=== PATIENT | female | born 1945 | race Caucasian/White ===

== ENCOUNTER → 2016-07-27 | Outpatient (CLI) | payer OTHER ==
[~2016-07-27] VITALS: Ht 170.2 cm; Wt 88.5 kg
[~2016-07-27] MED LIST: ACTOS 30 MG TAB30 M1; ACYCLOVIR 800800 MG PO; AMLODIPINE BESY10 MG PO; ASPIRIN EC81 M1 OR; ATORVASTATIN CA40 MG; BENZONATATE200 MG PO; BROMDAY1.7 ML OP; COLACE100 MG; COZAAR 50 MG TA50 M1; DUREZOL5 ML OP; FLEXERIL PO; FLONASE 0.05%50 MCG NASAL; GLUCOPHAGE500 MG PO; GRALISE300 MG PO; GRALISE600 MG PO; HYDROCHLOROTH12.5 M1; HYDROCODON-ACE1 EACH PO; HYDROCODONE PO; HYDROCODONE-AP1 EAC6 PO; KEFLEX500 MG PO; LANTUS SQ; LEVOTHYROXINE0.05 MG; LIDODERM 5%1 PATC1 TRANSDERM; LIPITOR80 MG OR; LOSARTAN-HCTZ1 EACH OR; LYRICA 50 MG50 MG; MAG-OX 400 TAB400 M1 OR; MEDROLDOSEPACK PO; MOBIC15 MG PO; NAPROSYN500 MG PO; NESINA25 MG; NEURONTIN 300300 M1 PO; NORCO 5-325 TA1 EACH PO; NORTRIPTYLINE H25 M3 PO; ONE-A-DAY WOMENS OR; OSENI 25-15 MG1 EACH PO; OXYCODON-ACETA1 EAC1 PO; PERCOCET 10-321 EAC1 PO; PERCOCET 10-321 EACH PO; PERCOCET 5-3251 EACH OR; PERCOCET 5-3251 EACH PO; PERCOCET 7.5-31 EACH PO; RESTORIL30 MG PO; SERTRALINE HCL100 MG OR; TIROSINT75 MCG OR; VALIUM5 MG PO; VESICARE 5 MG TA5 M1 PO; VIBRAMYCIN 100100 MG PO; VICTOZA0.6 MG/0.1 IJ; VICTOZA0.6 MG/0.1 SQ; VITAMIN D35000 UNI1 PO
--- NOTE | ~2016-07-27 | HPC ---
[facility] [address] [place] [address] PAIN MANAGEMENT CONSULTATION Name: KIM JIMENEZ Room #: REG JAYLIN Amos.#: [id number] Admission: 07/27/16 Attend Phys: Hawk Otoole DO Discharge: Date of : 47 Report #: [id number] THIS REPORT FOR: //name// CC: Hawk Hyde DATE OF SERVICE: 07/27/2016 DATE OF SERVICE: 07/27/2016 CHIEF COMPLAINT: Low back pain, left lower extremity pain and paresthesias. HISTORY OF PRESENT ILLNESS: As you know, patient is a very pleasant 70-year-old female, who returns today in followup visit with pain levels of 2/10. States her pain is chronic, aching, burning, numbness and tingling in sensation, exacerbated with standing and lifting, improves with medications, TENS unit, sitting and lying down. She returns today in followup visit for medication management as well as to undergo next in the series of epidural injections. She reported about a 50% improvement in overall pain with the epidural injection provided at last visit. She returns today for the next in the series and received refills of medications. She is considering surgical options, but is hoping to delay that necessity. ALLERGIES: LISINOPRIL, HYDROCODONE, ACETAMINOPHEN, ORPHENADRINE, IBUPROFEN, NAPROXEN. CURRENT MEDICATIONS: Oxycodone, gabapentin, fluticasone, meloxicam, losartan, levothyroxine, atorvastatin, VESIcare, insulin, temazepam, sertraline, metformin, amlodipine and aspirin. SOCIAL HISTORY: The patient denies tobacco, alcohol or illicit drug use. She is retired. She is unaccompanied today. PHYSICAL EXAMINATION: VITAL SIGNS: Blood pressure 139/72, pulse 88, respiratory rate 20, unlabored. The patient 95% on room air. Height 5 feet 7 inches tall, weight 195 pounds, BMI calculated 30.5. GENERAL: Well developed, well nourished, well hydrated 70-year-old female appearing stated age, placing pain score today 2/10. HEENT: Normocephalic, atraumatic. Pupils equal, round, reactive to light. EXTREMITIES: Show no clubbing, no cyanosis, no edema. MUSCULOSKELETAL: Seated straight leg raising positive on the left. Supine straight leg raising positive on the left. Cherise's test negative. Modified Gaenslen's positive for axial low back pain. Ankle clonus negative. Babinski is negative. Gait antalgic favoring [place] [address] PAIN MANAGEMENT CONSULTATION Name: KIM JIMENEZ Room #: REG [facility]#: [id number] Admission: 07/27/16 Attend Phys: Hawk Otoole DO Discharge: Date of : 47 Report #: [id number] ASSESSMENT: 1. Lumbar radiculopathy. 2. 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 3. Lumbosacral spondylosis with radiculopathy. 4. Degeneration of lumbar spine. 5. Chronic intractable pain. PLAN: 1. The patient returns today in followup visit requesting to undergo next in the series of epidural injections. The patient has been advised risks and benefits of the procedure, states she understood and wished to proceed. 2. The patient was provided a prescription of Percocet 10/325 one tab every 4-1/2 hours p.r.n. for pain. I have given the patient #150 releases of today, 4 weeks from today, 8 weeks from today, 3 months' worth of medication. 3. The patient was provided a refill prescription on gabapentin 300 mg dose 4 tabs p.o. t.i.d. #360 tablets with 2 refills, 3 months' worth of medication. We reviewed the fact that opiate medications are being used to provide analgesia adequate to support activities of daily living, not attempting to achieve a specific pain score on the 0-10 Visual Analog Scale. The current opiate medications are providing sufficient analgesia to allow the patient to participate in activities of daily living. The patient is not exhibiting any aberrant behavior suggestive of drug diversion. The patient is not having any adverse reactions to medications. The patient is not suffering from daytime somnolence or mental acuity changes. The patient is managing opiate-induced constipation with appropriate [id number]-cirrgdc agents and dietary considerations. The patient was counseled on concern for caution with operating a motor vehicle while using opiate medications. A physical exam was performed and the patient's functional status was evaluated. All patients with back pain were advised against the bed rest greater than 4 days and were advised to return to normal activities. Pain score assessment was noted and the treatment plan was reviewed with the patient. All current medications, both prescribed and OTC were reviewed and reconciled on the electronic medical record. Tobacco screening was accomplished and smoking cessation was advised when indicated. BMI was noted and diet/exercise modification was recommended for all patients following outside normal parameters. I reviewed with the patient today their responsibilities to safeguard prescription medications, reviewed their responsibility to utilize medications only as prescribed by the physician. They are to seek and receive pain medications only from 1 physician group ([facility]). They are to use 1 pharmacy and keep the clinic informed if they change pharmacies. Their responsibilities include making followup visits in a timely fashion and to avoid [address] [place] [address] PAIN MANAGEMENT CONSULTATION Name: KIM JIMENEZ Room #: REG [facility].#: [id number] Admission: 07/27/16 Attend Phys: Hawk Otoole DO Discharge: Date of : 47 Report #: [id number] abrupt discontinuation of medication usage. Their responsibilities further include bringing their medications (bottles from the pharmacy with residual pills) to the visit for possible confirmation of pill counts and the patient understands it is their responsibility to submit to random drug screens to ensure both that the medications prescribed are present, and that no other controlled substances are present. All prescriptions provided today were generated electronically. PROCEDURE NOTE DESCRIPTION OF PROCEDURE: Lumbar epidural steroid injection under fluoroscopic guidance. After obtaining written consent, the patient was taken back to fluoroscopy suite, placed in prone position with pillow under abdomen to decrease lumbar lordosis. Skin overlying the lumbosacral area was then prepped and draped in aseptic fashion. Lumbar intervertebral spaces were identified by AP fluoroscopy. Skin and subcutaneous tissue overlying the target site of injection was anesthetized with 3 mL of 1% lidocaine. A 20-gauge 3-1/2 inch Tuohy needle was advanced under fluoroscopic guidance towards the epidural space using a paramedian approach. Epidural space was identified using loss of resistance to air technique. After negative aspiration for heme or cerebrospinal fluid, 1 mL of Omnipaque was injected. Lumbar epidurogram was confirmed using both AP and lateral fluoroscopy. After negative aspiration for heme or cerebrospinal fluid, 5 mL of solution containing 2 mL 40 mg per mL, 80 mg total triamcinolone and 3 mL lidocaine 1% was injected slowly. Needle retracted approximately long-term, needle tract flushed 3 mL 1% lidocaine. Needle then removed. Sterile bandage placed over injection site. No new motor deficits present in lower extremity following procedure. The patient tolerated procedure well, carefully escorted to the recovery in stable condition. No apparent complications. After meeting discharge criteria, the patient discharged home. <ELECTRONICALLY SIGNED> By: Hawk Otoole DO 08/08/16 0805 [id number] 10 Hawk Otoole DO /nt
[2016-07-27 08:55] VITALS: BP 139/72
== END | disposition home or self-care (01) ==
LOC: PAIN 07:05
DX: M51.16 Intervertebral disc disorders with radiculopathy, lumbar region (principal); M47.27 Other spondylosis with radiculopathy, lumbosacral region; G89.29 Other chronic pain; F17.210 Nicotine dependence, cigarettes, uncomplicated

== ENCOUNTER → 2016-10-04 | Outpatient (CLI) | payer OTHER ==
[~2016-10-04] VITALS: Ht 170.2 cm; Wt 86.6 kg
[2016-10-04 10:11] VITALS: BP 154/79
== END ==
LOC: MRI 06:56 → PAIN 06:56
DX: M48.56XA Collapsed vertebra, not elsewhere classified, lumbar region, initial encounter for fracture (principal); M54.16 Radiculopathy, lumbar region; M54.5 Low back pain

== ENCOUNTER → 2016-10-13 | Outpatient (CLI) | payer OTHER ==
[~2016-10-13] VITALS: Ht 170.2 cm; Wt 88.5 kg
[2016-10-13 13:13] VITALS: BP 161/81
[2016-10-13 13:31] LABS: HEMATOCRIT 44.6 % (37.0-47.0); HEMOGLOBIN 14.7 gm/dL (12.0-15.0); MCH 31.6 pg (26.0-34.0); MCV 95.9 fL (80.0-100.0); RBC 4.65 mil/uL (4.20-5.00); RDW 13.5 % (10.5-14.5); WBC 8.6 thou/uL (4.0-11.0)
[2016-10-13 13:44] LABS: PROTIME 9.9 Seconds (9.3-11.4)
[2016-10-13 13:45] LABS: CALCIUM 8.7 mg/dL (8.5-10.1); CREATININE 0.6 mg/dL (0.6-1.0); POTASSIUM 4.2 mmol/L (3.5-5.1)
[2016-10-13 15:57] VITALS: BP 125/65
== END | disposition home or self-care (01) ==
LOC: SPEC
PROVIDERS: Radiology Vascular & Interventional Radiology
DX: M48.56XA Collapsed vertebra, not elsewhere classified, lumbar region, initial encounter for fracture (principal); E11.9 Type 2 diabetes mellitus without complications; I10 Essential (primary) hypertension; E78.5 Hyperlipidemia, unspecified; Z90.710 Acquired absence of both cervix and uterus

== ENCOUNTER → 2016-10-19 | Outpatient (CLI) | payer OTHER ==
[~2016-10-19] VITALS: Ht 170.2 cm; Wt 86.8 kg
--- NOTE | ~2016-10-19 | HPC ---
[facility] [place] [address] PAIN MANAGEMENT CONSULTATION Name: KIM JIMENEZ Room #: REG JAYLIN Isabel#: [id number] Admission: 10/19/16 Attend Phys: Hawk Otoole DO Discharge: Date of : 47 Report #: [id number] THIS REPORT FOR: //name// CC: Hawk Hyde DATE OF SERVICE: 10/19/2016 REFERRING PHYSICIAN: Aster Hyde M.D. CHIEF COMPLAINT: Low back pain, right lower extremity pain and paresthesias. HISTORY OF PRESENT ILLNESS: As you know, the patient is a 71-year-old female who returns today in followup visit having completed her kyphoplasty procedure. She was doing well from a kyphoplasty procedure standpoint and back pain had resolved. She was advised by the interventional radiologist that she had no limitation, she went out and begin golfing, not soon after the procedure was completed, she is now experiencing lumbar radicular symptoms, radiating down the right lower extremity. She denies injury or trauma during the golf, experience that may have led to symptoms. She is experiencing pain that begins in the axial back, radiates all the way down the leg to the foot. She returns today to discuss treatment options for "her new onset of right leg pain." ALLERGIES: LISINOPRIL, HYDROCODONE, ACETAMINOPHEN, IBUPROFEN, NAPROXEN. CURRENT MEDICATIONS: Gabapentin, Percocet, fluticasone, Mobic, Oseni, Cozaar, Synthroid, Lipitor, VESIcare, Lantus, Restoril, sertraline, Glucophage, amlodipine, aspirin. SOCIAL HISTORY: The patient denies tobacco, alcohol, IV or illicit drug use. She is unaccompanied today. She is retired. IMAGING: No new imaging available. PHYSICAL EXAMINATION: VITAL SIGNS: Blood pressure 153/77, pulse 84, respiratory rate 18, unlabored. The patient is 96% on room air. Height 5 feet 7 inches tall, weight 191 pounds, BMI calculated 29.9. GENERAL: Well-developed, well-nourished, well-hydrated 71-year-old female appearing stated age. Pain is rated again at 10/10. HEENT: Normocephalic, atraumatic. Pupils are equal, round and reactive to light. Extraocular muscles are intact. Sclerae are nonicteric, without injection. Speech is fluent. EXTREMITIES: Show no clubbing, no cyanosis, no edema. MUSCULOSKELETAL: The patient does have some palpatory tenderness over the paraspinal musculature of lower lumbar spine, no spinous process tenderness. [address] [address] PAIN MANAGEMENT CONSULTATION Name: KIM JIMENEZ Room #: REG JAYLIN Griffith.Mally.#: [id number] Admission: 10/19/16 Attend Phys: Hawk Otoole DO Discharge: Date of : 47 Report #: [id number] Seated straight leg raising negative. Supine straight leg raising positive, right. Fabere's test negative. Modified Gaenslen's is positive for axial low back pain. Ankle clonus is negative. Babinski is negative. ASSESSMENT: 1. Lumbar radiculopathy. 2. Displacement of a lumbar intervertebral disk with radicular symptoms. 3. Lumbosacral spondylosis with radiculopathy. 4. Lumbar degeneration. 5. Acute compression fracture, status post kyphoplasty. 6. Recurrent right lower extremity pain. 7. Chronic intractable pain. PLAN: 1. The patient returns today in followup visit indicating that she was pain free after undergoing the kyphoplasty procedure with radiology department here at [facility]. Unfortunately, the patient was advised that she had no restriction. She went out to begin golfing and exacerbated her symptoms. The likelihood is that she has irritated the area causing nerve root excitation and lumbar radicular symptoms radiating down the right leg. There is some concern that she may have a displaced fracture that was repaired with kyphoplasty or possibly led to a fracture above or below the original fracture site. I am unable to elicit any spinous process tenderness with examination today, though the new onset of right lower extremity radiculopathy is quite concerning. We will trial medication management initially for a week. If this does not improve, the patient will have to undergo x-ray imaging to confirm no displacement of the vertebral augmentation procedure and to determine if any new fractures may have occurred spontaneously. The patient is amenable to our direction of treatment and wishes to initiate medication therapy, look towards injection therapies if necessary later and further evaluation. 2. The patient will be started on Medrol Dosepak to begin the pack immediately. She will take the pack as directed. This should help decrease the acute inflammatory process. 3. The patient was provided refill prescription on Percocet 10/325 one tab p.o. q. 4 hours p.r.n. for pain. I have given the patient #150, releases of today, 4 weeks from today. This will be continued for baseline pain control. She does well with the medication, feel it is beneficial. 4. The patient was advised if she is not feeling better by next week, she is to contact the clinic. We will send her for x-ray imaging of the thoracolumbar area to further evaluate and have her return to discuss findings and more aggressive treatment options. By: [id number] Hawk Otoole DO /nt
[2016-10-19 08:53] VITALS: BP 153/77
== END | disposition home or self-care (01) ==
LOC: PAIN 06:45
DX: M51.16 Intervertebral disc disorders with radiculopathy, lumbar region (principal); M47.27 Other spondylosis with radiculopathy, lumbosacral region; M79.661 Pain in right lower leg; G89.29 Other chronic pain; F17.210 Nicotine dependence, cigarettes, uncomplicated; Z98.1 Arthrodesis status

== ENCOUNTER → 2016-12-06 | Outpatient (CLI) | payer OTHER ==
[~2016-12-06] VITALS: Ht 170.2 cm; Wt 86.1 kg
[~2016-12-06] MED LIST changes: +PAMELOR25 MG PO
--- NOTE | ~2016-12-06 | HPC ---
[facility] [address] [place] [address] PAIN MANAGEMENT CONSULTATION Name: KIM JIMENEZ Room #: REG [facility] M.R.#: [id number] Admission: 12/06/16 Attend Phys: Hawk Otoole DO Discharge: Date of : 47 Report #: [id number] THIS REPORT FOR: //name// CC: Hawk Hyde MD DATE OF SERVICE: 12/06/2016 DATE OF SERVICE: 12/06/2016 CHIEF COMPLAINT: Low back pain, right lower extremity pain and paresthesias. HISTORY OF PRESENT ILLNESS: As you know, the patient is a 71-year-old female, who continues to experience low back pain, right lower extremity pain, which appears to be radicular in origin. The patient states her pain has become so intense that she is now taking more doses of Percocet than prescribed. She indicates pain is aching, burning in sensation. She states she exacerbated her symptoms while scrubbing her deck yesterday. She places pain score today 9/10. She has been running low of her Percocet due to increased dosing. She returns today in followup visit to discuss this plus new MRI that was requested by Dr. Miguelito Mir, her orthopedic surgeon. ALLERGIES: LISINOPRIL, HYDROCODONE, ACETAMINOPHEN, IBUPROFEN, NAPROXEN. CURRENT MEDICATIONS: Gabapentin, Percocet, fluticasone, Mobic, Oseni, Cozaar, Synthroid, Lipitor, VESIcare, Lantus, Restoril, sertraline, Glucophage, amlodipine and aspirin. IMAGING: MRI of the lumbar spine obtained 12/01/2016, shows L3-L4 moderate disk loss, small diffuse posterior disk bulge lateral recess and foraminal mild stenosis. L5-S1, small diffuse posterior disk bulge identified larger as moderate sized broad based, left lateral recess stenosis. Right laminotomy change identified. Left foramen is moderately narrowed. L5-S1 mild degenerative changes, moderate right lateral recess stenosis. PHYSICAL EXAMINATION: VITAL SIGNS: Blood pressure 149/86, pulse 92, respiratory rate 20, unlabored. The patient is 95% on room air, height 5 feet 7 inches tall, weight 189.8 pounds, BMI calculated 29.7. GENERAL: Well developed, well nourished, well-hydrated 71-year-old female, appears stated age. She is in moderate distress secondary to pain, placing current pain score 9/10. HEENT: Normocephalic, atraumatic. Pupils equal, round, reactive to light. Extraocular muscles are intact. Sclerae nonicteric, without injection. EXTREMITIES: Show no clubbing, no cyanosis, no edema. [facility] [address] [place] [address] PAIN MANAGEMENT CONSULTATION Name: KIM JIMENEZ Room #: REG CL Nacho.#: [id number] Admission: 12/06/16 Attend Phys: Hawk Otoole DO Discharge: Date of : 47 Report #: [id number] MUSCULOSKELETAL: The patient does have some palpatory tenderness over the paraspinal musculature of lower lumbar spine, no spinous process tenderness. Seated straight leg raising negative. Supine straight leg raising positive on the right. Fabere's test negative. ASSESSMENT: 1. Symptomatic lumbar radiculopathy. 2. Displacement of lumbar intervertebral disk with radiculopathy. 3. Lumbosacral spondylosis with radiculopathy. 4. Lumbar degeneration. 5. Chronic intractable pain. PLAN: 1. The patient has returned today in followup visit with low back pain, right lower extremity pain that is radicular in origin. The patient has been evaluated by orthopedic surgery, who has indicated her symptoms are not hip or knee related on the right side. They believe also lumbar radicular symptoms. The patient and I had a very long discussion about lumbar radiculopathy and discussed the treatment options we have available, which include the following. 2. The patient and I discussed physical therapy, stretching exercises, core strengthening. We discussed medication management with adjustments in neuropathic pain medications. We discussed epidural injections under fluoroscopic guidance for which the patient has had, but did not note long-term efficacy. We also discussed spinal cord stimulator for which her third democrat payer restrictions did not allow her to undergo this procedure and surgical options. After reviewing risks and benefits of all proposed treatment options, the patient chose surgical evaluation. 3. The patient was sent to Neurosurgery for evaluation. The patient was advised to bring the information that she has recently had the new MRI requested by Dr. Mir. The EMGs and other findings were requested by Dr. Mir and any imaging studies that she has had done with us. All this information should be taking to her neurosurgery appointment. She will make her neurosurgery appointment as quickly as possible. Contact us to advise when to be watching for results. 4. We will increase the patient's oxycodone from 4 a day to 6 a day. This will be #180 tablets of Percocet 10/325. Advised to take the medication, no more than 6 times a day. We will not be able to sustain this level of oxycodone for a very long period of time. We are using this strictly for acute pain issues and we will gradually reduce back off this medication once available. We have provided the patient with oxycodone 10/325 mg #180 releases of today, 4 weeks from today, 8 weeks from today. This should be more than provide the patient with enough medication to be evaluated by neurosurgery and possibly undergo surgery. 5. The patient will start nortriptyline 25 mg dose 1 tab p.o. at bedtime for 5 nights and 2 tabs p.o. bedtime for 5 nights, then 3 tabs p.o. at bedtime, given the patient #90 tablets. Advised to titrate as directed, watch for side effects [address] [address] PAIN MANAGEMENT CONSULTATION Name: KIM JIMENEZ MING Room #: REG JAYLIN Hall#: [id number] Admission: 12/06/16 Attend Phys: Hawk Otoole DO Discharge: Date of : 47 Report #: [id number] such as somnolence, decrease in mental acuity, disorientation and confusion. If she notes any side effects, reduce the dose prior to side effects, contact our clinic. 6. The patient continued on gabapentin 1200 mg 3 times a day, given the patient #360 tablets, 2 refills, 3 months' worth of medication. 7. I will see the patient back in followup visit in 3 months for medication therapy or earlier if necessary to evaluate further. By: [id number] Hawk Otoole, DO /nt
[2016-12-06 09:02] VITALS: BP 149/86
== END ==
LOC: PAIN 06:32
DX: M54.5 Low back pain (principal); M79.661 Pain in right lower leg; M47.27 Other spondylosis with radiculopathy, lumbosacral region; M51.16 Intervertebral disc disorders with radiculopathy, lumbar region; G89.29 Other chronic pain; I10 Essential (primary) hypertension; F17.210 Nicotine dependence, cigarettes, uncomplicated; Z79.82 Long term (current) use of aspirin

== ENCOUNTER 2016-12-18 19:32 | Emergency (ER) | payer OTHER ==
[~2016-12-18] VITALS: Ht 170.2 cm; Wt 88.5 kg
[2016-12-21] MEDS ORDERED: PERCOCET 10-321 EACH PO (09:15)
[2016-12-21] MEDS ORDERED: NEURONTIN 300300 M1 PO (09:15)
== END 2016-12-18 21:39 | disposition home or self-care (01) ==
LOC: ER 19:32
DX: G89.29 Other chronic pain (principal); M54.5 Low back pain; F17.210 Nicotine dependence, cigarettes, uncomplicated; Z90.710 Acquired absence of both cervix and uterus; Z98.890 Other specified postprocedural states; Z90.89 Acquired absence of other organs; Z96.653 Presence of artificial knee joint, bilateral; Z88.8 Allergy status to other drugs, medicaments and biological substances

== ENCOUNTER → 2016-12-21 | Outpatient (CLI) | payer OTHER ==
[~2016-12-21] VITALS: Ht 175.3 cm; Wt 85.3 kg
[2016-12-21 08:51] VITALS: BP 131/80
== END | disposition home or self-care (01) ==
LOC: PAIN 06:49
DX: M54.31 Sciatica, right side (principal); G89.29 Other chronic pain; F17.200 Nicotine dependence, unspecified, uncomplicated; Z88.8 Allergy status to other drugs, medicaments and biological substances; Z79.82 Long term (current) use of aspirin; Z79.4 Long term (current) use of insulin; Z79.899 Other long term (current) drug therapy

== ENCOUNTER → 2017-02-28 | Outpatient (CLI) | payer OTHER ==
[~2017-02-28] MED LIST changes: +FENTANYL PA12 MCG/HR TP; +FENTANYL PA25 MCG/HR TRANSDERM
--- NOTE | ~2017-02-28 | HPC ---
[facility] [address] [place] [address] PAIN MANAGEMENT CONSULTATION Name: KIM JIMENEZ Room #: REG Richard Hall#: [id number] Admission: 02/28/17 Attend Phys: Hawk Otoole DO Discharge: Date of : 49 Report #: [id number] THIS REPORT FOR: //name// CC: Hawk Hyde DATE OF SERVICE: 02/28/2017 DATE OF SERVICE: 02/28/2017 CHIEF COMPLAINT: Right leg pain, low back pain. HISTORY OF PRESENT ILLNESS: As you know, the patient is a 71-year-old female, who continues to experience low back pain, right lower extremity pain with paresthesias. The patient sustained a fall in which she fractured the distal portion of the femur just above the condyle. An attempted conservative treatment as the fracture itself was not displaced, unfortunately, the patient's fracture progressed and it did begin to appear angulated and now she is in a full cast. The patient states that the fall that she sustained that caused this fracture was met with loss of consciousness. The patient states that she became dizzy, disoriented, loss of consciousness and then fell. This was in her bathroom. This is the third report of loss of consciousness or dizziness prior to fall. Does not appear the patient is suffering from weakness secondary to back issues and lumbar radicular symptoms. It appears that the patient is actually having difficulty with passing out and thus leading to falls. She has not sought neurologic evaluation. She returns today in followup visit having been started on a fentanyl patch while in rehabilitation at 25 mcg and taking excessive amounts of oxycodone. She has returned for adjustments in medication therapy to be weaning off of a higher dose opioids. ALLERGIES: LISINOPRIL, HYDROCODONE, ACETAMINOPHEN, IBUPROFEN, NAPROXEN. CURRENT MEDICATIONS: Gabapentin, Percocet, Fentanyl, fluticasone, Mobic, , Cozaar, Synthroid, Lipitor, VESIcare, Lantus, Restoril, sertraline, Glucophage, amlodipine and aspirin. PHYSICAL EXAMINATION: VITAL SIGNS: Blood pressure 137/76, pulse 89, respiratory rate 20, unlabored. The patient is 98% on room air, height 5 feet 7 inches tall. GENERAL: Well-developed, well-nourished, well-hydrated 71-year-old female, appears stated age, placing current pain score at approximately 3/10. HEENT: Normocephalic, atraumatic. Pupils equal, round, reactive to light. Extraocular muscles are intact. Sclerae nonicteric without injection. NEUROLOGIC: Cranial nerves 2-12 grossly intact. Speech is fluent. EXTREMITIES: Show no clubbing, no cyanosis, no edema. [address] [address] PAIN MANAGEMENT CONSULTATION Name: KIM JIMENEZ Room #: REG CL Isabel#: [id number] Admission: 02/28/17 Attend Phys: Hawk Otoole DO Discharge: Date of : 49 Report #: [id number] MUSCULOSKELETAL: There is a full leg cast on the right, beginning at the proximal thigh radiating all the way down to the ankle. MUSCULOSKELETAL: Deferred secondary to fractured leg. ASSESSMENT: 1. Symptomatic lumbar radiculopathy. 2. Displacement of lumbar intervertebral disk with radiculopathy. 3. Lumbosacral spondylosis with radiculopathy. 4. Lumbar degeneration. 5. Right leg pain secondary to fracture. 6. Chronic intractable pain. PLAN: 1. The patient returns today in followup visit where we have discussed recent falls. I am very concerned about the patient's ongoing issues with falls and loss of consciousness. I have recommended the patient follow up with Neurology. We have given the patient the names of 2 different neurologists. She will start making phone calls today to be seen. I am concerned about issues that may be related to vascular flow, but also other issues such as transient ischemic attacks. The patient has had 3 different falls all of which have been preceded by dizziness and loss of consciousness. She does not remember fall, she wakes up afterwards. This recent fall led to a distal femur fracture on the right. I am concerned of further injury if she continues to experience these loss of consciousness and fall issues. We recommend strongly the patient be seen by Neurology as quickly as possible. The patient was given the names of neurologists and referral for Neurology workup for loss of consciousness with unknown etiology. 2. In regards to patient's ongoing pain issues, we agree the patient does have a pain generator from the fracture, but is now stabilized in a cast. I do not feel that a strong opioid management in this patient's case is necessary. At present, she is receiving a 25 mcg patch which is equal to about 62 mg of morphine a day by current calculations and taking oxycodone up to 5 a day. This is an excessively high dose of medication. This will compound issues of dysphoric effects as well as constipation issues. I recommend strongly the patient come off the fentanyl, as I believe this is not necessary component to the pain control at this point. I did advise the patient that pain tolerable is what we are searching for and not pain free. The patient was advised we will be weaning her down from the 25 mcg patch to 12 mcg patch for 2 weeks, then off the fentanyl entirely. 3. The patient was provided a prescription of fentanyl 12 mcg patch 1 patch every 3 days. She was given #5 patches 15 days' worth of medication to ultimately come off this medication. 4. The patient was provided a prescription of Percocet 10/325 one tab p.o. every 4 hours p.r.n. for pain. This is the patient's typical baseline pain medication. We have given her #180 tablets, releases of today, 4 weeks from today, 8 weeks from today. These were provided for breakthrough pain for the [address] [address] PAIN MANAGEMENT CONSULTATION Name: KIM JIMENEZ MING Room #: REG JAYLIN Hall#: [id number] Admission: 02/28/17 Attend Phys: Hawk Otoole DO Discharge: Date of : 47 Report #: [id number] next 2 weeks, then to return to her normal baseline dosing of Percocet. She has tolerated the medication well and had no side effects and is at a very high level and does not need to be supplemented further. 4. The patient did apparently see Neurosurgery. She was advised at this time nonsurgical candidate. We need to look for other sources of treatment. We will discuss with the patient once she heals from the issues of this recent fracture and has had complete workup from Neurology, the possibility of placing a spinal cord stimulator. If this is ineffective, the patient will need to seek cognitive behavioral therapy treatments. 5. We will see the patient back in followup visit in 3 months earlier if adjustments need to be made in therapy. <ELECTRONICALLY SIGNED> By: Hawk Otoole DO 03/07/17 0714 0726 Hawk Otoole DO /nt
[2017-02-28 10:32] VITALS: BP 137/76
== END ==
LOC: PAIN 07:11
DX: M47.26 Other spondylosis with radiculopathy, lumbar region (principal); Z88.8 Allergy status to other drugs, medicaments and biological substances; M51.16 Intervertebral disc disorders with radiculopathy, lumbar region; G89.29 Other chronic pain; F17.210 Nicotine dependence, cigarettes, uncomplicated; Z79.899 Other long term (current) drug therapy

== ENCOUNTER → 2017-06-13 | Outpatient (CLI) | payer OTHER ==
[~2017-06-13] VITALS: Ht 170.2 cm; Wt 85.6 kg
--- NOTE | ~2017-06-13 | HPC ---
[facility] [address] [place] [address] PAIN MANAGEMENT CONSULTATION Name: KIM JIMENEZ Room #: REG [facility] M..#: [id number] Admission: 06/13/17 Attend Phys: Hawk Otoole DO Discharge: Date of : 49 Report #: [id number] THIS REPORT FOR: //name// CC: Hawk Hyde MD DATE OF SERVICE: 06/13/2017 REFERRING PHYSICIAN: Aster Hyde MD CHIEF COMPLAINT: Low back pain, right lower extremity pain with paresthesias. HISTORY OF PRESENT ILLNESS: As you know, the patient is a 71-year-old female who returns today in followup visit for medication management. She states she is continuing to be evaluated from a neurological standpoint in regards to balance issues. There is some concern she is experiencing some vestibular issues and they are looking into this further. She does have plans to undergo an EMG in the next couple of weeks, apparently it was scheduled, but there was difficulty with the machinery and that was unable to be utilized. The patient is to contact her neurologist to determine the next possible time to undergo EMG as this would be quite beneficial to help us to determine if low back symptoms are generating her balance issues or whether this is a vestibular issue. She returns for medication management. ALLERGIES: LISINOPRIL, HYDROCODONE, ACETAMINOPHEN, IBUPROFEN, and NAPROXEN. CURRENT MEDICATIONS: Gabapentin, Percocet, fentanyl, fluticasone, Mobic, Cozaar, Synthroid, Lipitor, VESIcare, Lantus, Restoril, sertraline, Glucophage, amlodipine, and aspirin. IMAGING: No new imaging available. PHYSICAL EXAMINATION: VITAL SIGNS: Blood pressure 150/81, pulse is 111, respiratory rate 18 and unlabored, the patient is 97% on room air, height 5 feet 7 inches tall, weight 180.8 pounds, and BMI calculated 29.6. GENERAL: Well-developed, well-nourished, well-hydrated 71-year-old female, appearing her stated age, placing current pain score 4/10. HEENT: Normocephalic, atraumatic. Pupils are equal, round, and reactive to light. NEUROLOGIC: Speech is fluent. Gait is antalgic, utilizing a roller walker for ambulation. MUSCULOSKELETAL: Seated straight leg raising negative. Supine straight leg raising positive. Cherise's test negative. [address] [address] PAIN MANAGEMENT CONSULTATION Name: KIM JIMENEZ Room #: REG CLI [facility]#: [id number] Admission: 06/13/17 Attend Phys: Hawk Otoole DO Discharge: Date of : 49 Report #: [id number] ASSESSMENT: 1. Symptomatic lumbar radiculopathy. 2. Displacement of lumbar intervertebral disk with radiculopathy. 3. Lumbosacral spondylosis with radiculopathy. 4. Lumbar degeneration. 5. Right leg pain secondary to a healing fracture. 6. Vestibular issues. 7. Balance issues. 9. Chronic intractable pain. PLAN: 1. The patient returns today in followup visit for medication management. She feels medications are working beneficially for pain control. She requests refills of the medication to be provided today. She is denying any side effects with the therapy. 2. The patient was provided a prescription of gabapentin 300 mg dose 6 tabs 3 times a day, #540, 2 refills. 3. The patient was provided prescription of nortriptyline 25 mg dose 3 tabs p.o. at bedtime, #90, 2 refills. 4. The patient was provided a prescription of oxycodone 10/325 one tab every 6 hours p.r.n. for pain, #120, release dates of today, 4 weeks from today, and 8 weeks from today. 5. The patient is to contact her neurologist and be seen in followup visit to undergo EMG of the lower extremities. I do request that this procedure be performed as quickly as possible. This will provide us information in regards to whether or not symptoms are from the low back or whether another source of symptomology may be present. The patient is to contact her neurologist to establish the EMG and followup visit. <ELECTRONICALLY SIGNED> By: Hawk Otoole DO 06/21/17 1216 0922 1243 Hawk Otoole DO /nt
[2017-06-13 10:09] VITALS: BP 150/81
== END ==
LOC: PAIN 06:29
DX: M47.27 Other spondylosis with radiculopathy, lumbosacral region (principal); M51.16 Intervertebral disc disorders with radiculopathy, lumbar region; G89.4 Chronic pain syndrome; M79.604 Pain in right leg; R26.9 Unspecified abnormalities of gait and mobility

== ENCOUNTER → 2017-09-19 | Outpatient (CLI) | payer OTHER, BC ==
[~2017-09-19] VITALS: Ht 170.2 cm; Wt 90.4 kg
--- NOTE | ~2017-09-19 | HPC ---
[facility] [address] [place] [address] PAIN MANAGEMENT CONSULTATION Name: KIM JIMENEZ Room #: REG [facility] M..#: [id number] Admission: 09/19/17 Attend Phys: Hawk Otoole DO Discharge: Date of : 49 Report #: [id number] THIS REPORT FOR: //name// CC: Hawk Hyde DATE OF SERVICE: 09/19/2017 CHIEF COMPLAINT: Low back pain, right lower extremity pain and paresthesias. HISTORY OF PRESENT ILLNESS: As you know, the patient is a 72-year-old female with longstanding history of low back pain, right lower extremity pain. She returns today in followup visit for medication management. She is indicating pain level of 5/10. She states she is experiencing pain with standing and walking, improves with medications, hot tub therapy and intermittent epidural injections. She returns today in followup visit requesting refill on medications. She states overall her pain is controlled with the medications and adjustments in her lifestyle. She returns requesting refills for the next 3 months. She is denying side effects with their use. ALLERGIES: LISINOPRIL, HYDROCODONE, ACETAMINOPHEN, IBUPROFEN, NAPROXEN. CURRENT MEDICATIONS: Gabapentin, Percocet, fentanyl, fluticasone, Mobic, Cozaar, Synthroid, Lipitor, VESIcare, Lantus, Restoril, sertraline, Glucophage, amlodipine and aspirin. IMAGING: No new imaging available. PQRS: The patient has known osteoarthritis. No rheumatoid arthritis. Her pain intensity is 5/10. She is a fall risk. She has had a fall in the past 3 months. She is utilizing a roller walker for ambulation. She is not on blood thinners. She is treated for hypertension. She is on opioids and has been for years. She has a low assessment for opioid addiction. Her functional assessment pain impact score is 37/70 indicating moderate interference of daily activities secondary to pain. PHYSICAL EXAMINATION: VITAL SIGNS: Blood pressure 154/84, pulse is 115, respiratory rate 20 and unlabored. The patient is 95% on room air. Height 5 feet 7 inches tall, weight 199.2 pounds, BMI calculated at 31.2. GENERAL: Well-developed, well-nourished, well-hydrated 72-year-old female appearing stated age, placing current pain score at 5/10. HEENT: Normocephalic, atraumatic. Pupils equal, round, reactive to light. Extraocular muscles are intact. Speech is fluent. LUNGS: Clear, no wheeze, rhonchi or rales. [address] [address] PAIN MANAGEMENT CONSULTATION Name: KIM JIMENEZ Room #: REG [facility] M.R.#: [id number] Admission: 09/19/17 Attend Phys: Hawk Otoole DO Discharge: Date of : 49 Report #: [id number] CARDIOVASCULAR: Tachycardic. No appreciable gallop or rub. ABDOMEN: Soft, obese, normoactive bowel sounds. EXTREMITIES: Show no clubbing, no cyanosis, no edema. MUSCULOSKELETAL: Seated straight leg raising negative. Supine straight leg raising positive. Fabere's test negative. Gait is antalgic, utilizing a roller walker for ambulation favoring right lower extremity. ASSESSMENT: 1. Symptomatic lumbar radiculopathy. 2. 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 3. Lumbosacral spondylosis with radiculopathy. 4. Lumbar degeneration. 5. Balance issues. 6. Chronic intractable pain. PLAN: 1. The patient has returned today in followup visit requesting refill on medications. She is placing pain score 5/10. She does report improvement in symptoms with medication management. She is somewhat frustrated in the fact that she has not improved significantly with rest, relaxation and changes in activity, but continues to experience pain at a level of 5/10. I have described to the patient the likelihood of significant improvement in pain, will not be realized without adjustments in her daily activities, continuing the PT as directed and looking towards possible surgical options. She is entertaining all treatment options. 2. The patient was provided prescription of gabapentin 300 mg dose 6 tabs 3 times a day, #540, two refills 3. The patient was provided a refill prescription on nortriptyline 25 mg dose 3 tabs p.o. at bedtime, #90, two refills, 3 months' worth of medication. 4. The patient was provided refill prescription on oxycodone 10/325 one tab every 6 hours p.r.n. for pain, #180. This equals the total dose of available opioids per the CDCs recommended guidelines of no more than 90 morphine equivalents a day. There will be no further escalation in medication. I did discuss with the patient today the likelihood is that we will be reducing her dose to comply with CDCs guidelines as changes are going to be made to reduce possibly all the way to 50 morphine equivalents in the very near future. I have advised the patient of such today. We have provided her the top dose available for the CDCs recommendations at this time with the understanding that we will ultimately be reducing these medications to comply with CDCs regulations when they make the changes. She was given prescriptions of releasing of today and 4 weeks from today, 8 weeks from today. 5. Recommend strongly the patient follow up with Surgery for possible options for treatment. We will ultimately have to come off these medications or [facility] [address] [place] [address] PAIN MANAGEMENT CONSULTATION Name: KIM JIMENEZ MING Room #: REG CL Isabel#: [id number] Admission: 09/19/17 Attend Phys: Hawk Otoole DO Discharge: Date of : 49 Report #: [id number] significantly reduce the therapy. She will need to find other treatment options. <ELECTRONICALLY SIGNED> By: Hawk Otoole DO 09/27/17 0736 0807 0920 Hawk Otoole DO /nt
[2017-09-19 10:56] VITALS: BP 154/84
== END ==
LOC: PAIN 06:20
DX: M47.27 Other spondylosis with radiculopathy, lumbosacral region (principal); M51.16 Intervertebral disc disorders with radiculopathy, lumbar region; G89.4 Chronic pain syndrome; R26.89 Other abnormalities of gait and mobility; R20.0 Anesthesia of skin

== ENCOUNTER → 2018-01-02 | Outpatient (CLI) | payer OTHER, BC ==
[2018-01-02 13:33] VITALS: BP 146/86
== END ==
LOC: PAIN 06:40
DX: Z09 Encounter for follow-up examination after completed treatment for conditions other than malignant neoplasm (principal); M19.011 Primary osteoarthritis, right shoulder; M17.11 Unilateral primary osteoarthritis, right knee; F17.210 Nicotine dependence, cigarettes, uncomplicated; Z79.899 Other long term (current) drug therapy

== ENCOUNTER → 2018-04-18 | Outpatient (CLI) | payer OTHER, BC ==
[~2018-04-18] VITALS: Ht 170.2 cm; Wt 91.5 kg
--- NOTE | ~2018-04-18 | HPC ---
[facility] [address] [place] [address] PAIN MANAGEMENT CONSULTATION Name: KIM JIMENEZ Room #: REG [facility] M.R.#: [id number] Admission: 04/18/18 Attend Phys: Neela Hill Discharge: Date of : 49 Report #: [id number] THIS REPORT FOR: //name// CC: Neela Rogers CHIEF COMPLAINT: Low back pain, right lower extremity pain and paresthesias. HISTORY OF PRESENT ILLNESS: This is a pleasant 72-year-old female with a long history of low back pain and right lower extremity pain, occasionally in the left extremity also. She returns for a visit today for medication management. She is indicating her pain at 7/10. She states that she was in the hospital in [facility] about 2 months ago due to severe respiratory infection where she was in ICU, did not remember much, but they found out that she had pneumonia and was treated and released. The patient states that she has decreased her gabapentin since this time. Said she is trying to get off some of her medicines and occasionally will take 5 pain pills of her Percocets a day instead of 6 that she is allowed, so therefore she has been able to go a little longer than 3 months for her medication refills. She states that she is also starting the paleo diet to try and lose weight because she feels very uncomfortable and lethargic at her current weight of 201. ALLERGIES: LISINOPRIL, ORPHENADRINE, IBUPROFEN, NAPROXEN, HYDROCODONE, AND TYLENOL. CURRENT MEDICATIONS: Oxycodone 10/325 up to 6 times a day, nortriptyline 25 mg capsules 3 capsules at bedtime, gabapentin 300 mg tablets takes three 3 times a day, Flonase, meloxicam 15, Oseni 25/15, Cozaar 50 mg, Synthroid 50 mcg, Lipitor 40 mg, VESIcare 5 mg, Lantus, Restoril 30 mg, sertraline 100 mg, Glucophage 2 tablets twice a day of 500 mg, amlodipine, and baby aspirin. PQRS: 1. History of osteoarthritis in her upper and lower extremities and denies rheumatoid arthritis. 2. Height 5 feet 7 inches, weight 201, the patient's BMI is 31.6. 3. Vital signs: Blood pressure 147/78, pulse 110, respirations 18, oxygen 96%. 4. Pain score of 7/10. 5. The patient says fall risk, she does have some dizziness, but has not fallen in the last month, but did fall several months ago when she was brought to the hospital at [facility]. The patient denies blood thinners. 6. Hypertension. 7. Denies history of opioids greater than 6 weeks, so therefore she is an opioid signed contract. 8. Low risk for assessment tool was done and her functional assessment score is 37/70. The patient states that she currently smokes everyday cigarettes and she [address] [place] [address] PAIN MANAGEMENT CONSULTATION Name: KIM JIMENEZ Room #: REG JAYLIN Hall#: [id number] Admission: 04/18/18 Attend Phys: Neela Hill Discharge: Date of : 49 Report #: [id number] does not use recreational drug use or any alcohol use, [place] and [place] K-TRACS were available to us with no apparent aberrant behavior from this patient. PHYSICAL EXAMINATION: VITAL SIGNS: Blood pressure 147/78, pulse 110, respirations 18, oxygen sat is 96%. GENERAL: Well-developed, well-nourished, well-hydrated, obese 72-year-old, appears her stated age. HEENT: Normocephalic, atraumatic. Pupils equal and reactive to light. Extraocular muscles are intact. EXTREMITIES: No clubbing, no edema in her upper extremities, though the patient does have significant edema 2 to 3+ in her lower extremities with redness from her ankles to her knees. MUSCULOSKELETAL: Gait is antalgic. She favors her right lower extremity over her left. She is not using a cane or walker at this time. IMPRESSION: 1. Systematic lumbar radiculopathy. 2. Possible cellulitis. 3. Displacement of lumbar intervertebral disk with radiculopathy. 4. Lumbosacral spondylosis with radiculopathy. 5. Lumbar degeneration. 6. Opioid dependency. 7. Chronic intractable pain. PLAN: 1. The patient has returned today in followup for review of her medications and states that she has decreased her gabapentin and her Percocet use occasionally. She tells me that her gabapentin dose is 900 mg three times a day now, so a total of 9 pills a day, script was given for gabapentin 300 mg tablets, #270 with one additional refill. The patient was given nortriptyline, she takes 25 mg 3 tablets at night, #90 with one additional refill was given. 2. Percocet was discussed. The patient states that most days she takes 4-5 and several days though she does still require 6 tablets. It was decided to continue her at #80, script given today and again for 4 weeks and at that time we will discuss reducing that to 150 tablets for the next 2 refills. The patient is encouraged to lose weight this time to help get her functioning better, so therefore may be we are able to decrease her medications according to the CDC guidelines of 50 or below. This would still place her at above 50, but working towards a goal of decreasing to 50 MME per day. 3. Due to the patient's swelling in her lower extremities, possible cellulitis, she was instructed to contact Dr. Hyde today regarding this issue. [facility] [address] [place] [address] PAIN MANAGEMENT CONSULTATION Name: KIM JIMENEZ Room #: REG CL Isabel#: [id number] Admission: 04/18/18 Attend Phys: Neela Hill Discharge: Date of : 49 Report #: [id number] 4. We reviewed the fact that opiate medications are being used to provide analgesia adequate to support activities of daily living, not attempting to achieve a specific pain score on the 0-10 Visual Analog Scale. The current opiate medications are providing sufficient analgesia to allow the patient to participate in activities of daily living. The patient is not exhibiting any aberrant behavior suggestive of drug diversion. The patient is not having any adverse reactions to medications. The patient is not suffering from daytime somnolence or mental acuity changes. The patient is managing opiate-induced constipation with appropriate [id number] agents and dietary considerations. The patient was counseled on concern for caution with operating a motor vehicle while using opiate medications. A physical exam was performed and the patient's functional status was evaluated. All patients with back pain were advised against the bed rest greater than 4 days and were advised to return to normal activities. Pain score assessment was noted and the treatment plan was reviewed with the patient. All current medications, both prescribed and OTC were reviewed and reconciled on the electronic medical record. Tobacco screening was accomplished and smoking cessation was advised when indicated. BMI was noted and diet/exercise modification was recommended for all patients following outside normal parameters. I reviewed with the patient today their responsibilities to safeguard prescription medications, reviewed their responsibility to utilize medications only as prescribed by the physician. They are to seek and receive pain medications only from 1 physician group ( [facility]). They are to use 1 pharmacy and keep the clinic informed if they change pharmacies. Their responsibilities include making followup visits in a timely fashion and to avoid abrupt discontinuation of medication usage. Their responsibilities further include bringing their medications (bottles from the pharmacy with residual pills) to the visit for possible confirmation of pill counts and the patient understands it is their responsibility to submit to random drug screens to ensure both that the medications prescribed are present, and that no other controlled substances are present. All prescriptions provided today were generated electronically. 5. The patient will follow up in [address]. Hawk Otoole or myself. The patient was seen in collaboration today with Dr. Hawk Otoole. <ELECTRONICALLY SIGNED> By: Neela Hill 04/19/18 0723 [id number] Neela Hill /vandana
[2018-04-18 12:00] VITALS: BP 147/78
== END ==
LOC: PAIN 07:15
DX: M47.27 Other spondylosis with radiculopathy, lumbosacral region (principal); M51.16 Intervertebral disc disorders with radiculopathy, lumbar region; F11.20 Opioid dependence, uncomplicated; G89.4 Chronic pain syndrome; Z79.899 Other long term (current) drug therapy

== ENCOUNTER → 2018-06-15 | Outpatient (CLI) | payer OTHER, BC ==
[~2018-06-15] VITALS: Ht 170.2 cm; Wt 90.9 kg
--- NOTE | ~2018-06-15 | HPC ---
[facility] [place] [address] PAIN MANAGEMENT CONSULTATION Name: KIM JIMENEZ Room #: REG [facility]..#: [id number] Admission: 06/15/18 Attend Phys: Neela Hill Discharge: Date of : 49 Report #: [id number] THIS REPORT FOR: //name// CC: Neela Matiason Ramanneil DATE OF SERVICE: 06/15/2018 CHIEF COMPLAINT: Low back pain, right lower extremity pain and paresthesias. HISTORY OF PRESENT ILLNESS: As you know, this is a 72-year-old female with a longstanding history of low back pain and right lower extremity pain. She returned to the pain clinic today for followup of her pain management medications. The patient tells me today that she has been experiencing an increase in sweating and had decreased her gabapentin thinking that was the cause from 3 tablets 3 times a day to 3 tablets twice a day, but continues to have episodes of sweating. The patient tells me her pain is in her lower back down her legs, pain score of 8/10, most significant when she is walking and standing. Feels like her oxycodone tablets and other pain medicines do help. She denies any constipation or daytime sleepiness and would like a refill of her medications today. ALLERGIES: LISINOPRIL, ORPHENADRINE. CURRENT MEDICATIONS: Nortriptyline 75 mg at bedtime, gabapentin 300 mg 3 tablets 3 times a day, oxycodone 10/325 up to 5 tablets a day, Flonase, meloxicam 15 mg daily, Oseni 25/15 tablets daily, Cozaar 50 mg daily, Synthroid 50 mcg daily, Lipitor 40 mg daily, VESIcare 5 mg daily, Lantus 30 units subq, Restoril 30 mg at bedtime, Zoloft 50 mg daily, Glucophage 500 mg tablets 2 tablets twice a day, amlodipine 10 mg daily and aspirin 81 mg. PQRS: 1. The patient has a history of osteoarthritis in her right upper and lower extremities. Denies rheumatoid arthritis. 2. Height is 5 feet 7 inches, weight is 200. BMI is 31.4. 3. Vital signs: Blood pressure 168/95, pulse is 93, respirations 20, oxygen sat is 96%. Pain score is 8/10. 4. Fall risk: She denies dizziness. Does not need help walking or standing, has not fallen in the last 2 months, but has in the last 3. 5. The patient denies blood thinners, does take antihypertensive medicine. 6. Opioid therapy is greater than 6 weeks and opioid signed contract is on the chart. 7. Risk assessment tool is low and her functional assessment is 37/70. 8. Recreational drug use, the patient denies. She does currently smoke cigarettes about a pack a day and no alcohol use. 9. Urine drug screen is on the chart, that is appropriate with her current [address] [address] PAIN MANAGEMENT CONSULTATION Name: KIM JIMENEZ Room #: REG JAYLIN Hall#: [id number] Admission: 06/15/18 Attend Phys: Neela Hill Discharge: Date of : 49 Report #: [id number] medications and she tells me that she safeguards all of her medications and no aberrant behavior is noted. PHYSICAL EXAMINATION: GENERAL APPEARANCE: This is a well-developed, well-nourished, well-hydrated female that appears her stated age, exogenously obese. Pain score today at 8/10. HEENT: Normocephalic, atraumatic. Pupils equal, round and reactive to light. Extraocular eye muscles are intact. EXTREMITIES: No clubbing, no cyanosis, no edema. MUSCULOSKELETAL: Gait is antalgic, favoring her right lower extremity. Seated straight leg raising is negative. The patient does complain of excessive sweating today, none noted at present time. ASSESSMENT: 1. Symptomatic lumbar radiculopathy. 2. Displacement of lumbar intervertebral disk with radiculopathy. 3. Lumbosacral spondylosis with radiculopathy. 4. Lumbar degeneration. 5. Opioid dependency. 6. Chronic intractable pain. We reviewed the fact that opiate medications are being used to provide analgesia adequate to support activities of daily living, not attempting to achieve a specific pain score on the 0-10 Visual Analog Scale. The current opiate medications are providing sufficient analgesia to allow the patient to participate in activities of daily living. The patient is not exhibiting any aberrant behavior suggestive of drug diversion. The patient is not having any adverse reactions to medications. The patient is not suffering from daytime somnolence or mental acuity changes. The patient is managing opiate-induced constipation with appropriate xncq-gji-bymotsx agents and dietary considerations. The patient was counseled on concern for caution with operating a motor vehicle while using opiate medications. A physical exam was performed and the patient's functional status was evaluated. All patients with back pain were advised against the bed rest greater than 4 days and were advised to return to normal activities. Pain score assessment was noted and the treatment plan was reviewed with the patient. All current medications, both prescribed and OTC were reviewed and reconciled on the electronic medical record. Tobacco screening was accomplished and smoking cessation was advised when indicated. BMI was noted and diet/exercise modification was recommended for all patients following outside normal parameters. I reviewed with the patient today their responsibilities to safeguard prescription medications, reviewed their responsibility to utilize medications [facility] [address] [place] [address] PAIN MANAGEMENT CONSULTATION Name: KIM JIMENEZ [id number] Admission: 06/15/18 Attend Phys: Neela Hill Discharge: Date of : 49 Report #: [id number] only as prescribed by the physician. They are to seek and receive pain medications only from 1 physician group ( [facility]). They are to use 1 pharmacy and keep the clinic informed if they change pharmacies. Their responsibilities include making followup visits in a timely fashion and to avoid abrupt discontinuation of medication usage. Their responsibilities further include bringing their medications (bottles from the pharmacy with residual pills) to the visit for possible confirmation of pill counts and the patient understands it is their responsibility to submit to random drug screens to ensure both that the medications prescribed are present, and that no other controlled substances are present. All prescriptions provided today were generated electronically. PLAN: 1. Treatment options were discussed with this patient today. The patient tells me that she has had excessive sweating and had decreased on her own the gabapentin from 900 mg t.i.d. to 900 mg b.i.d. The patient continued to have excessive sweating and her pain has increased since doing this. I explained to the patient that gabapentin does not typically have a side effect of sweating, but nortriptyline does. The patient take 75 mg at bedtime of that medication. Opioids also have possible side effects of sweating. The plan will be to go back on her gabapentin 900 mg 3 times a day and see if her pain decreases with increase of that medicine back to her normal dose. Nortriptyline 75 mg will be given in 25 mg tablets, quantity 90 with one additional refill. The patient will try to take 2 tablets at bedtime for 5 days to see if the sweating has improved and if it does not, then she will decrease to 1 tablet. If it makes no difference, the patient's pain returns or gets worse, the patient will resume her current dose. 2. The patient tells me that she is taking oxycodone 10/325 five tablets a day, which is consistent with what she had told me at last visit, so therefore script was given today for 10/325, #150. This is a decrease from her 80 that she used to get. The patient has found that she is able to tolerate 5 pills a day for several months. This decreases the patient's MME from 90 to 75 morphine mEq in a 24-hour period. 3. The patient is agreeable with this plan of care, will be seen in 2 months' time. The patient was seen in collaboration today with Dr. Timoteo Pimentel. <ELECTRONICALLY SIGNED> By: Neela Hill 06/18/18 0708 [id number] Neela Hill /vandana
[2018-06-15 08:57] VITALS: BP 168/95
== END ==
LOC: PAIN 08:45
DX: M51.16 Intervertebral disc disorders with radiculopathy, lumbar region (principal); M47.27 Other spondylosis with radiculopathy, lumbosacral region; M19.90 Unspecified osteoarthritis, unspecified site; F11.20 Opioid dependence, uncomplicated; Z88.8 Allergy status to other drugs, medicaments and biological substances; Z79.899 Other long term (current) drug therapy

== ENCOUNTER → 2018-08-07 | Outpatient (CLI) | payer OTHER, BC ==
[~2018-08-07] VITALS: Ht 162.6 cm; Wt 91.6 kg
[2018-08-07 10:17] VITALS: BP 166/89
--- NOTE | 2018-08-07 10:21 | NUR ---
Pain Clinic Assessment: 1. History of Osteoarthritis: B/L HANDS B/L KNEES B/L FEET SPINE History of Rheumatoid Arthritis: Not Applicable 2. Height: 5 ft. 4 in. 162.6 cm. Weight: 202.0 lb. oz. 91.627 kg. Patient's BMI: 34.7 3. Vital Signs: BP: 166/89 Pulse: 105 Resp: 16 Temp: 02 Sat: 92 ECG Mon: 4. Pain Intensity: 6-NOW, 2 AFTER MED 5. Fall Risk: Dizziness: N Needs help standing or walking: N Fallen in the last 3 months: N Fall risk comments: FELL 2 MONTHS AGO. BLACKED OUT. WAS IN [facility]. 6. Patient on Blood Thinner: None 7. History of Hypertension: N 8. Opioid Therapy greater than 6 weeks: Y Opiate Contract Signed: 12/16/15 9. Risk Assessment Tool Provided: LOW RISK 0/3 10. Functional Assessment Tool: 37/ 11. Recreational Drug Use: Never Drug Type: Tobacco Use: Current Every Day Smoker Tobacco Type: Cigarettes Amount or Packs/day: 1 How Many Years: Alcohol Use: No Frequency: Quant:
--- NOTE | 2018-08-08 12:50 | HPC ---
[facility] [address] [address] PAIN MANAGEMENT CONSULTATION Name: KIM JIMENEZ Room #: REG JAYLIN Hall#: [id number] Admission: 08/07/18 Attend Phys: Neela Hill Discharge: Date of : 49 Report #: [id number] THIS REPORT FOR: //name// CC: Neela Matiason Barrett DATE OF SERVICE: 08/07/2018 CHIEF COMPLAINT: Low back pain, right lower extremity pain and paresthesias. HISTORY OF PRESENT ILLNESS: This is a very pleasant 72-year-old female who has a longstanding history of low back pain and left lower extremity pain. She returns to the pain clinic today for refill of her medications. She tells me that her pain score is 6/10 currently, but usually after her medicines have taken effect about an hour after taking them, her pain is a 2/10. She has brought with her 2 prescriptions today dated 06/15/2018 that were supposedly lost. She had filled out a police report and in July, we have given her a 1-month medication, then hence the appointment today. The patient tells me she believes that her had done something with them. She feels that his memory has been declining and she is worried about him and she said that she thinks that he placed them on the kitchen table. They have been all curled up like they have been hidden somewhere. The patient states she normally keeps them in a file folder as soon as she gets home. She will return those today to be destroyed and would like a refill of her medications. She does not have any constipation problems or any daytime sleepiness. CURRENT LIST OF ALLERGIES: LISINOPRIL, ORPHENADRINE. CURRENT LIST OF MEDICATIONS: Oxycodone 10/325 up to 5 pills a day, nortriptyline 75 mg at bedtime, gabapentin 900 mg 3 times a day, Flonase as needed, meloxicam 15 mg daily, Oseni 1 tablet a day, Cozaar 50 mg daily, Synthroid 50 mcg daily, atorvastatin 40 mg daily, VESIcare 5 mg daily, Lantus 30 units subQ at bedtime, temazepam 30 mg daily, Zoloft 50 mg daily, metformin 500 mg 2 tablets b.i.d., amlodipine 10 mg daily and aspirin 81 mg daily. The patient's PQRS, 1. She has a history of osteoarthritis in her lower extremities. Denies rheumatoid arthritis. 2. Height is 5 feet 4 inches, weight is 202, BMI is 34.7. 3. Vital signs, blood pressure 166/89, pulse is 105, respirations 16, oxygen sat is 92%. 4. Pain score is 6/10 currently, 2 after her medications. 5. Fall risk. She denies dizziness. She does not have any problems standing or walking. Has not fallen in the last 3 months. The patient is not on any blood thinners and does take antihypertensive medicines. 6. Opioid therapy is greater than 6 weeks; therefore, an opioid signed contract [address] [address] PAIN MANAGEMENT CONSULTATION Name: KIM JIMENEZ Room #: REG CLI Isabel#: [id number] Admission: 08/07/18 Attend Phys: Neela Hill Discharge: Date of : 49 Report #: [id number] is on the chart. Her risk assessment tool is low. Her functional assessment is 37/70. 7. Recreational drug use. She denies she is a current smoker of cigarettes and does not drink alcohol. We did check the prescription monitoring system. The patient is filling appropriately with her medications on a timely fashion. Urine drug screen is on the chart currently within the past year. PHYSICAL EXAMINATION: GENERAL: This is a well-developed, well-nourished, well-hydrated female who appears her stated age. Exogenously obese. Her pain score is 6/10 currently. HEENT: Normocephalic, atraumatic. Pupils equal, round and reactive to light. Extraocular eye muscles are intact. EXTREMITIES: No clubbing, no cyanosis, no edema. MUSCULOSKELETAL: Gait is slightly antalgic, favors her right extremity. The patient does complain of some occasional low back pain and leg pain. The patient is able to stand using the arm rest from sitting to standing position. Lower extremity strength is judged to be 5/5 in all major muscle groups bilaterally. ASSESSMENT: 1. Symptomatic lumbar radiculopathy. 2. Displacement of lumbar intravertebral disk with radiculopathy. 3. Lumbosacral spondylosis with radiculopathy. 4. Lumbar degeneration. 5. Opioid dependency. 6. Chronic intractable pain. We reviewed the fact that opiate medications are being used to provide analgesia adequate to support activities of daily living, not attempting to achieve a specific pain score on the 0-10 Visual Analog Scale. The current opiate medications are providing sufficient analgesia to allow the patient to participate in activities of daily living. The patient is not exhibiting any aberrant behavior suggestive of drug diversion. The patient is not having any adverse reactions to medications. The patient is not suffering from daytime somnolence or mental acuity changes. The patient is managing opiate-induced constipation with appropriate kgmt-mcn-vocdfve agents and dietary considerations. The patient was counseled on concern for caution with operating a motor vehicle while using opiate medications. A physical exam was performed and the patient's functional status was evaluated. All patients with back pain were advised against the bed rest greater than 4 days and were advised to return to normal activities. Pain score assessment was noted and the treatment plan was reviewed with the patient. All current medications, both prescribed and OTC were reviewed and reconciled on the electronic medical record. Tobacco screening was accomplished and smoking cessation was advised when indicated. BMI was noted and diet/exercise modification was recommended for all patients following outside normal [facility] [address] [place] [address] PAIN MANAGEMENT CONSULTATION Name: KIM JIMENEZ Room #: REG [facility].#: [id number] Admission: 08/07/18 Attend Phys: Neela Hill Discharge: Date of : 49 Report #: [id number] parameters. I reviewed with the patient today their responsibilities to safeguard prescription medications, reviewed their responsibility to utilize medications only as prescribed by the physician. They are to seek and receive pain medications only from 1 physician group ( [facility]). They are to use 1 pharmacy and keep the clinic informed if they change pharmacies. Their responsibilities include making followup visits in a timely fashion and to avoid abrupt discontinuation of medication usage. Their responsibilities further include bringing their medications (bottles from the pharmacy with residual pills) to the visit for possible confirmation of pill counts and the patient understands it is their responsibility to submit to random drug screens to ensure both that the medications prescribed are present, and that no other controlled substances are present. All prescriptions provided today were generated electronically. PLAN: 1. We discussed treatment options with the patient today. We discussed that she has brought back these 2 prescriptions that were supposedly lost. The patient had gotten a police report for. The patient feels that her had taken them out of her file folder and hidden them somewhere and they are curled up along with her discharge papers. The patient tells me that her has been having more memory issues lately. She is planning on taking over the household finances. She did discuss having a family member from out [facility] to come live with them. 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 The patient expresses concern that she is unable to care for him on a daily basis any longer. He has also been having problems driving. He is about 15 years older than the patient. 2. The patient tells me that she does not need a gabapentin refill today. She is doing well on her current prescriptions and does not need that medicine refilled today. 3. Prescription given today for Percocet 10/325, quantity #150 for today and 4 weeks. The patient also was given a prescription for nortriptyline 25 mg tablets, quantity 3 at bedtime #90 with 1 additional refill. She has been instructed to leave these at the pharmacy so they are not lost again. 4. The patient will make an appointment in 2 months as she was given 2 months of medicine due to her MME of 75 mEq a day. The patient will continue to try and decrease the number of pills that she takes on a daily basis to hopefully decreasing her MME that currently she has been taking about 5 tablets a day. 5. The patient is agreeable with this plan of care. [address] [address] PAIN MANAGEMENT CONSULTATION Name: KIM JIMENEZ Room #: REG JAYLIN Hall#: [id number] Admission: 08/07/18 Attend Phys: Neela Hill Discharge: Date of : 49 Report #: [id number] The patient was seen in collaboration today with Dr. Hawk Otoole. <ELECTRONICALLY SIGNED> By: Neela Hill 08/08/18 1250 [id number] Neela Hill /nt
== END ==
LOC: PAIN 06:51
DX: M47.27 Other spondylosis with radiculopathy, lumbosacral region (principal); M51.16 Intervertebral disc disorders with radiculopathy, lumbar region; G89.4 Chronic pain syndrome; F11.20 Opioid dependence, uncomplicated; Z79.899 Other long term (current) drug therapy

== ENCOUNTER → 2018-10-02 | Outpatient (CLI) | payer OTHER, BC ==
[~2018-10-02] VITALS: Ht 162.6 cm; Wt 90.2 kg
[~2018-10-02] MED LIST changes: +ZANAFLEX2 MG PO
[2018-10-02 11:12] VITALS: BP 151/73
--- NOTE | 2018-10-02 11:25 | NUR ---
Pain Clinic Assessment: 1. History of Osteoarthritis: B/L HANDS B/L KNEES B/L FEET SPINE History of Rheumatoid Arthritis: Not Applicable 2. Height: 5 ft. 4 in. 162.6 cm. Weight: 198.8 lb. oz. 90.175 kg. Patient's BMI: 34.1 3. Vital Signs: BP: 151/73 Pulse: 117 Resp: 20 Temp: 02 Sat: 96 ECG Mon: 4. Pain Intensity: 10 5. Fall Risk: Dizziness: N Needs help standing or walking: Y Fallen in the last 3 months: N Fall risk comments: FELL 2 MONTHS AGO. BLACKED OUT. WAS IN [facility]. 6. Patient on Blood Thinner: None 7. History of Hypertension: N 8. Opioid Therapy greater than 6 weeks: Y Opiate Contract Signed: 12/16/15 9. Risk Assessment Tool Provided: LOW RISK 0/3 10. Functional Assessment Tool: 11. Recreational Drug Use: Never Drug Type: Tobacco Use: Current Every Day Smoker Tobacco Type: Amount or Packs/day: How Many Years: Alcohol Use: No Frequency: Quant:
--- NOTE | 2018-10-04 08:41 | HPC ---
[facility] [address] [place] [address] PAIN MANAGEMENT CONSULTATION Name: KIM JIMENEZ Room #: REG JAYLIN Isabel#: [id number] Admission: 10/02/18 ������������������ Attend Phys: Hawk Otoole DO Discharge: ������������������ Date of : 49 Report #: [id number] THIS REPORT FOR: //name// CC: Hawk Hyde MD DATE OF SERVICE: 10/02/2018 REFERRING PHYSICIAN: Aster Hyde M.D. CHIEF COMPLAINT: Low back pain, left lower extremity pain and paresthesias. HISTORY OF PRESENT ILLNESS: As you know, the patient is a 73-year-old female who returns today in followup visit with increasing low back pain, left lower extremity pain with paresthesias and intermittent right lower extremity pain with paresthesias. She indicates pain level of 10/10 today. She describes the pain as aching, constant, tender and sore, exacerbated with standing and walking. This appears to be worse in the morning, improves with medications, hot tub therapy and previous epidural injections. She returns today in followup visit, state, "I can no longer take this pain." She is taking oxycodone 10 mg dose 5 times a day, totalling 75 morphine equivalents a day along with gabapentin. Despite this elevated dosing of both medications, she is not seeing much in the way of benefit. I would recommend further evaluation. She returns to discuss this today. ALLERGIES: LISINOPRIL and EPHEDRINE. CURRENT MEDICATIONS: Tizanidine 2 mg q. 6 hours p.r.n. muscle spasming, nortriptyline 75 mg p.o. at bedtime, Percocet 10/325 five times a day, gabapentin 900 mg 3 times a day, fluticasone 1 spray each nostril per day, Meloxicam 15 mg once a day, Oseni 25/15 mg once a day, losartan 50 mg once a day, levothyroxine 50 mcg per day, VESIcare 5 mg once a day, Lantus 30 units subcutaneously per evening, temazepam 30 mg per day, sertraline 100 mg per day, amlodipine 10 mg a day, aspirin 81 mg per day and metformin 500 mg 2 tabs b.i.d. SOCIAL HISTORY: The patient reports she is a nonsmoker. Denies IV or illicit drug use. Denies any chronic alcohol use. She is retired. She is accompanied by her present in room today. IMAGING DATA: No new imaging available. PQRS: The patient has osteoarthritic changes of the lumbar spine, bilateral hips and bilateral knees. She is not suffering from any rheumatoid arthritis. She is placing pain intensity of 10/10. She is a fall risk, but has not had a fall in last 3 months. She is not on blood thinners. [place] [address] PAIN MANAGEMENT CONSULTATION Name: KIM JIMENEZ Room #: REG [facility].#: [id number] Admission: 10/02/18 ������������������ Attend Phys: Hawk Otoole DO Discharge: ������������������ Date of : 49 Report #: [id number] hypertension. She is on chronic opioids and has been so for an extended period of time. She is a low risk for opioid addiction. She is placing pain impact score 37/70, moderate interference of daily activities secondary to pain. PHYSICAL EXAMINATION: VITAL SIGNS: Blood pressure 151/73, pulse 117 and respiratory rate 20 and unlabored. The patient is 96% on room air. Height 5 feet 4 inches tall, weight 198.8 pounds and BMI calculated 34.1. GENERAL: Well-developed, well-nourished and well-hydrated 73-year-old female, appears stated age. She is in mild distress secondary to pain, placing current pain score 10/10. HEENT: Normocephalic and atraumatic. Pupils equal, round and reactive to light. EXTREMITIES: Show no clubbing or cyanosis and no edema. MUSCULOSKELETAL: Lower extremity strength is symmetrical, though there is giveaway strength noted with hip flexion, knee extension on the left when compared to the right. Seated straight leg raising negative. Supine straight leg raising positive on the left. Cherise's test negative. Modified Gaenslen's positive for axial low back pain. Ankle clonus negative. ASSESSMENT: 1. Symptomatic lumbar radiculopathy. 2. 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 3. Lumbosacral spondylosis with radiculopathy. 4. Lumbar degeneration. 5. Opioid dependency. 6. Chronic intractable pain. PLAN: 1. The patient returns today in followup visit reporting pain score of 10/10. The patient states she is having difficulty with going about her activities of daily living due to this ongoing pain issue. She returns today in followup visit to discuss treatment options. We have trialled epidural injections in the past. These provided only transient improvement in symptoms. We adjusted medications with good efficacy initially but now have lost this effect. She is taking 75 morphine equivalents of oxycodone a day, taking 5 Percocet with little or no benefit. She is also taking gabapentin 900 mg 3 times a day, which can be adjusted, but I think further evaluation is necessary. The patient was amenable. 2. We will increase the patient's gabapentin to 1200 mg 3 times a day. She has medication available, does not need a prescription for this adjustment. She will start this immediately. She will watch for side effects of somnolence, decrease in mental acuity, disorientation and confusion. If she notes these side effects, contact our clinic for adjustments in therapy. 3. The patient was provided refill prescription of her oxycodone 10/325 one tab p.o. q. 5 hours p.r.n. for pain, I have given the patient #150, releasing today [address] [address] PAIN MANAGEMENT CONSULTATION Name: KIM JIMENEZ Room #: REG [facility].R.#: [id number] Admission: 10/02/18 ������������������ Attend Phys: Hawk Otoole DO Discharge: ������������������ Date of : 49 Report #: [id number] and 4 weeks from today, 2 months' worth of medication. 4. We reviewed the fact that opiate medications are being used to provide analgesia adequate to support activities of daily living, not attempting to achieve a specific pain score on the 0-10 Visual Analog Scale. The current opiate medications are providing sufficient analgesia to allow the patient to participate in activities of daily living. The patient is not exhibiting any aberrant behavior suggestive of drug diversion. The patient is not having any adverse reactions to medications. The patient is not suffering from daytime somnolence or mental acuity changes. The patient is managing opiate-induced constipation with appropriate xzdo-myj-ioedhhr agents and dietary considerations. The patient was counseled on concern for caution with operating a motor vehicle while using opiate medications. A physical exam was performed and the patient's functional status was evaluated. All patients with back pain were advised against the bed rest greater than 4 days and were advised to return to normal activities. Pain score assessment was noted and the treatment plan was reviewed with the patient. All current medications, both prescribed and OTC were reviewed and reconciled on the electronic medical record. Tobacco screening was accomplished and smoking cessation was advised when indicated. BMI was noted and diet/exercise modification was recommended for all patients following outside normal parameters. I reviewed with the patient today their responsibilities to safeguard prescription medications, reviewed their responsibility to utilize medications only as prescribed by the physician. They are to seek and receive pain medications only from 1 physician group ( [facility]). They are to use 1 pharmacy and keep the clinic informed if they change pharmacies. Their responsibilities include making followup visits in a timely fashion and to avoid abrupt discontinuation of medication usage. Their responsibilities further include bringing their medications (bottles from the pharmacy with residual pills) to the visit for possible confirmation of pill counts and the patient understands it is their responsibility to submit to random drug screens to ensure both that the medications prescribed are present, and that no other controlled substances are present. All prescriptions provided today were generated electronically. 5. The patient was provided prescription of nortriptyline 25 mg dose 3 tabs p.o. at bedtime for a total of 75 mg. She was given 3 tabs per day, #90 for a month with one refill. 6. The patient will be sent for MRI of the lumbar spine for further evaluation. The patient will undergo the MRI as quickly as possible. Once the findings are received, we will review those findings. If surgical options may be necessary, we will have the patient referred back to her neurosurgeon, Dr. Beth. If changes are not noted on the MRI, we will discuss other treatment options. She will undergo this MRI imaging as quickly as possible for further evaluation. 7. We will see the patient back in followup visit in 2 months for medication [facility] [address] [place] [address] PAIN MANAGEMENT CONSULTATION Name: KIM JIMENEZ Room #: REG JAYLIN [facility]#: [id number] Admission: 10/02/18 ������������������ Attend Phys: Hawk Otoole DO Discharge: ������������������ Date of : 49 Report #: [id number] therapy, earlier if adjustments need to be addressed or she wishes to review the MRI in person. ��������������������������������������������� <ELECTRONICALLY SIGNED> ���������������������������������������� By: Hawk Otoole DO ��������������������������������������������� 10/04/18 0841 1250 [id number] Hawk Otoole DO /nt
== END ==
LOC: PAIN 07:00
DX: M47.27 Other spondylosis with radiculopathy, lumbosacral region (principal); M51.16 Intervertebral disc disorders with radiculopathy, lumbar region; G89.4 Chronic pain syndrome; F11.20 Opioid dependence, uncomplicated; Z79.899 Other long term (current) drug therapy

== ENCOUNTER → 2018-10-03 | Outpatient (CLI) | payer OTHER, BC | LOC: MRI 14:23 | DX: M51.16 Intervertebral disc disorders with radiculopathy, lumbar region (principal); M51.37 Other intervertebral disc degeneration, lumbosacral region ==

== ENCOUNTER → 2018-10-24 | Outpatient (CLI) | payer OTHER, BC ==
[~2018-10-24] VITALS: Ht 162.6 cm; Wt 91.1 kg
--- NOTE | ~2018-10-24 | HPC ---
[facility] [address] [place] [address] PAIN MANAGEMENT CONSULTATION Name: KIM JIMENEZ Room #: REG [facility] M..#: [id number] Admission: 10/24/18 ������������������ Attend Phys: Hawk Otoole DO Discharge: ������������������ Date of : 49 Report #: [id number] THIS REPORT FOR: //name// CC: Hawk Hyde MD DATE OF SERVICE: 10/24/2018 REFERRING PHYSICIAN: Aster Hyde MD CHIEF COMPLAINT: Low back pain, bilateral lower extremity pain with paresthesias, left greater than right. HISTORY OF PRESENT ILLNESS: As you know, the patient is a 73-year-old female who suffers from chronic lumbar radiculopathy for which we have been treating with medication management and intermittent epidural injections. She returns today in followup visit reporting pain that is aching, constant, tender and sore, numbness and tingling. Places current pain score 10/10, exacerbated with standing, walking, worse upon arising in the morning, improves with medications, hot tubs and previous epidural injections. She returns today in followup visit to undergo next in the series of lumbar epidural injections in hopes of improving pain. She denies injury or trauma that may have led to symptom recurrence. ALLERGIES: LISINOPRIL, ORPHENADRINE. CURRENT MEDICATIONS: Oxycodone, nortriptyline, gabapentin, tizanidine, fluticasone, meloxicam, Oseni, losartan, levothyroxine, atorvastatin, VESIcare, insulin, temazepam, sertraline, metformin, amlodipine and aspirin. SOCIAL HISTORY: The patient denies tobacco, alcohol, IV or illicit drug use. She is unaccompanied today. IMAGING: No new imaging available. PQRS: The patient has known osteoarthritic changes of the lumbar spine, bilateral hips and bilateral knees. No rheumatoid arthritis. She is placing pain intensity at 10/10. She is a fall risk, but has not had a fall in the last 3 months. She takes no blood thinners, but is treated for hypertension. She has been on chronic opioids for greater than 6 weeks. She is a low risk for opioid addiction. Pain impact tool indicates interference 37/70, moderate interference in daily activity. PHYSICAL EXAMINATION: VITAL SIGNS: Blood pressure 158/90, pulse is 111, respiratory rate 22 and [facility] [address] [place] [address] PAIN MANAGEMENT CONSULTATION Name: KIM JIMENEZ Room #: REG [facility] M.Mally.#: [id number] Admission: 10/24/18 ������������������ Attend Phys: Hawk Otoole DO Discharge: ������������������ Date of : 49 Report #: [id number] unlabored. The patient is 95% on room air. Height 5 feet 4 inches tall, weight 200.8 pounds, BMI calculated 34.5. GENERAL: Well-developed, well-nourished, well-hydrated exogenously obese 73-year-old female, appearing stated age, placing current pain score at 10/10. HEENT: Normocephalic, atraumatic. Pupils equal, round, reactive to light. EXTREMITIES: Show no clubbing and no cyanosis nor edema. MUSCULOSKELETAL: Lower extremity strength symmetrical in the lower extremities, though there is giveaway strength noted with hip flexion, knee extension on the left when compared to the right secondary to pain. Seated straight leg raising negative. Supine straight leg raising is positive. ANDREAS test is negative. Modified Gaenslen's positive for axial low back pain. Ankle clonus negative. Babinski is negative. Gait is antalgic favoring left lower extremity to right. ASSESSMENT: 1. Symptomatic lumbar radiculopathy. 2. Displacement of lumbar intervertebral disk with radiculopathy. 3. Lumbosacral spondylosis with radiculopathy. 4. Lumbar degeneration. 5. Opioid dependency. 6. Chronic intractable pain. PLAN: 1. The patient returns today in followup visit to undergo a lumbar epidural injection under fluoroscopic guidance to address 10/10 pain. The patient denies any specific injury or trauma that may have led to symptom recurrence. She returns today to undergo the epidural injection. She has been advised the risks and benefits, states understood and wished to proceed. 2. No medication changes made at today's visit. The patient received refills of medications 10/02/2018 for 2 months' worth of medication therapy. We will see her back in followup visit for refills of those medications and followup visit. 3. The patient will return to our clinic on an as needed basis for possible next in the series of lumbar epidural injections. We are hopeful today's injection will provide good and prolonged benefit. PROCEDURE NOTE: PROCEDURE: L5-S1 left paramedian epidural steroid injection under fluoroscopic guidance. DESCRIPTION OF PROCEDURE: After obtaining written consent, the patient was taken back to fluoroscopy suite, placed in prone position with pillow under abdomen to decrease lumbar lordosis. Skin overlying lumbosacral area then prepped and draped in aseptic fashion. The L5-S1 vertebral interspace identified by AP fluoroscopy. Skin and subcutaneous tissue overlying target site of injection anesthetized with 3 mL of 1% lidocaine. [address] [address] PAIN MANAGEMENT CONSULTATION Name: KIM JIMENEZ Room #: REG [facility] Isabel#: [id number] Admission: 10/24/18 ������������������ Attend Phys: Hawk Otoole DO Discharge: ������������������ Date of : 49 Report #: [id number] A 20-gauge 3-1/2 inch Tuohy needle advanced under fluoroscopic guidance towards the epidural space using left paramedian approach. Epidural space identified using loss of resistance to air technique. After negative aspiration for heme or cerebrospinal fluid, 1 mL of Omnipaque injected. A lumbar epidurogram was confirmed using both AP and lateral fluoroscopy. After negative aspiration for heme or cerebrospinal fluid, 5 mL of a solution containing 2 mL 40 mg per mL, 80 mg total triamcinolone and 3 mL of lidocaine 1% injected slowly. Needle retracted approximately half way, flushed with 1 mL of 1% lidocaine and removed. Sterile bandage placed over injection site. No new motor deficits present in lower extremity following the procedure. The patient tolerated the procedure well, carefully escorted to the recovery room in stable condition. No apparent complications. After meeting discharge criteria, the patient discharged home. ��������������������������������������������� ���������������������������������������� By: ��������������������������������������������� [id number] Hawk Otoole DO /nt
[2018-10-24 08:24] VITALS: BP 158/90
--- NOTE | 2018-10-24 08:34 | NUR ---
Pain Clinic Assessment: 1. History of Osteoarthritis: B/L HANDS B/L KNEES B/L FEET SPINE History of Rheumatoid Arthritis: Not Applicable 2. Height: 5 ft. 4 in. 162.6 cm. Weight: 200.8 lb. oz. 91.082 kg. Patient's BMI: 34.5 3. Vital Signs: BP: 158/90 Pulse: 111 Resp: 22 Temp: 02 Sat: 95 ECG Mon: 4. Pain Intensity: 10 5. Fall Risk: Dizziness: N Needs help standing or walking: Y Fallen in the last 3 months: N Fall risk comments: FELL 2 MONTHS AGO. BLACKED OUT. WAS IN [facility]. 6. Patient on Blood Thinner: None 7. History of Hypertension: N 8. Opioid Therapy greater than 6 weeks: Y Opiate Contract Signed: 12/16/15 9. Risk Assessment Tool Provided: LOW RISK 0/3 10. Functional Assessment Tool: 37/ 11. Recreational Drug Use: Never Drug Type: Tobacco Use: Current Every Day Smoker Tobacco Type: Cigarettes Amount or Packs/day: 1 PK How Many Years: Alcohol Use: No Frequency: Quant:
== END | disposition home or self-care (01) ==
LOC: PAIN 06:53
DX: M51.16 Intervertebral disc disorders with radiculopathy, lumbar region (principal); M47.27 Other spondylosis with radiculopathy, lumbosacral region; G89.29 Other chronic pain; I10 Essential (primary) hypertension; F17.210 Nicotine dependence, cigarettes, uncomplicated; Z88.0 Allergy status to penicillin; Z79.899 Other long term (current) drug therapy; Z79.4 Long term (current) use of insulin; Z88.8 Allergy status to other drugs, medicaments and biological substances; Z79.82 Long term (current) use of aspirin

== ENCOUNTER → 2018-11-13 | Outpatient (CLI) | payer OTHER, BC ==
[~2018-11-13] VITALS: Ht 162.6 cm; Wt 89.2 kg
--- NOTE | ~2018-11-13 | P ---
[facility] [place] [address] PROCEDURE REPORT Name: KIM JIMENEZ Room #: REG [facility].#: [id number] Admission: 11/13/18 ������������������ Attend Phys: Hawk Otoole DO Discharge: ������������������ Date of : 49 Report #: [id number] THIS REPORT FOR: //name// CC: Hawk Hyde MD DATE OF SERVICE: 11/13/2018 DESCRIPTION OF PROCEDURE: L5-S1 left paramedian epidural steroid injection under fluoroscopic guidance. After obtaining written consent, the patient was taken back to fluoroscopy suite, placed in prone position with pillow under abdomen to decrease lumbar lordosis. Skin overlying lumbosacral area then prepped and draped in aseptic fashion. The L5-S1 vertebral interspace identified by AP fluoroscopy. Skin and subcutaneous tissue overlying target site injection anesthetized with 3 mL of 1% lidocaine. A 20-gauge 3-1/2-inch Tuohy needle advanced under fluoroscopic guidance towards the epidural space using left paramedian approach. Epidural space identified using loss of resistance to air technique. After negative aspiration for heme or cerebrospinal fluid, 1 mL of Omnipaque injected. A lumbar epidurogram confirmed using both AP and lateral fluoroscopy. After negative aspiration for heme or cerebrospinal fluid, 5 mL of a solution containing 2 mL 40 mg per mL, 80 mg total triamcinolone and 3 mL of lidocaine 1% injected slowly. Needle retracted penitentiary, flushed with 1 mL of 1% lidocaine and then removed. Sterile bandage placed over injection site. No new motor deficits present in lower extremity following procedure. The patient tolerated procedure well, carefully escorted to recovery room in stable condition. No apparent complications. After meeting discharge criteria, the patient discharged home. ��������������������������������������������� ���������������������������������������� By: ��������������������������������������������� 1019 50 Hawk Otoole DO /nt
--- NOTE | ~2018-11-13 | HPC ---
[address] [address] PAIN MANAGEMENT CONSULTATION Name: KIM JIMENEZ Room #: REG [facility] MYamil.#: [id number] Admission: 11/13/18 ������������������ Attend Phys: Hawk Otoole DO Discharge: ������������������ Date of : 49 Report #: [id number] THIS REPORT FOR: //name// CC: Hawk Hyde MD DATE OF SERVICE: 11/13/2018 CHIEF COMPLAINT: Low back pain, bilateral lower extremity pain with paresthesias, left greater than right. HISTORY OF PRESENT ILLNESS: As you know, the patient is a 73-year-old female who returns today in followup visit reporting continued chronic lumbar radicular symptoms for which she places pain score 4-5/10. She underwent an epidural injection under fluoroscopic guidance at our last visit, which provided just about 50% improvement in overall pain. She returns today in followup visit requesting to undergo next in the series of epidural injections in hopes of improving pain. She denies any new injury, new trauma or any changes in medical history since our visit of 10/24/2018. She continues to utilize Percocet for pain control, but this has begun to lose efficacy. She returns to discuss the next in a series of epidural injections and what treatment options might be available if this is ineffective at controlling symptoms. ALLERGIES: LISINOPRIL, ORPHENADRINE. CURRENT MEDICATIONS: Oxycodone, nortriptyline, gabapentin, tizanidine, fluticasone, meloxicam, Oseni, losartan, levothyroxine, atorvastatin, VESIcare, insulin, temazepam, sertraline, metformin, amlodipine, aspirin. SOCIAL HISTORY: The patient denies alcohol, IV or illicit drug use. She is unaccompanied today. She is using a pack of tobacco per day. IMAGING: No new imaging available. PQRS: The patient has arthritic changes of the lumbar spine, bilateral hips, bilateral knees, bilateral hands. No rheumatoid arthritis. She is placing pain intensity today at 4-5/10. She is a fall risk, had a fall at [facility] when she "blacked out." This was 2 months ago. She is utilizing roller walker for balance and ambulation. She is not on blood thinners. She is treated for hypertension. She is on opioids, has been for an extended period of time. She is a low risk for opioid addiction. She is placing pain impact score 37/70, moderate interference of daily activities secondary to pain. PHYSICAL EXAMINATION: VITAL SIGNS: Blood pressure 158/82, pulse 116, respiratory rate 20 and [facility] [address] [place] [address] PAIN MANAGEMENT CONSULTATION Name: KIM JIMENEZ Room #: REG [facility] M.R.#: [id number] Admission: 11/13/18 ������������������ Attend Phys: Hawk Otoole DO Discharge: ������������������ Date of : 49 Report #: [id number] unlabored. The patient is 95% on room air. Height 5 feet 4 inches tall, weight 196.6 pounds, and BMI calculated 33.7. GENERAL: Well-developed, well-nourished, well-hydrated exogenously obese 73-year-old female appearing stated age, pain is rated anywhere from 4-5/10. HEENT: Normocephalic, atraumatic. Pupils equal, round, reactive to light. EXTREMITIES: Show no clubbing, no cyanosis, and no edema. MUSCULOSKELETAL: Gait is antalgic. Appears to be favoring left lower extremity over right. Muscle bulk and tone equal and symmetrical. Strength is 5/5, though there is giveaway strength with hip flexion, knee extension on the left when compared to the right. Seated straight leg raising mildly positive left. Supine straight leg raising strongly positive left. Cherise's test negative. ASSESSMENT: 1. Symptomatic lumbar radiculopathy. 2. Displacement of lumbar intervertebral disk with radiculopathy. 3. Lumbosacral spondylosis with radiculopathy. 4. Lumbar degeneration. 5. Opioid dependency. 6. Chronic intractable pain. PLAN: 1. The patient returns today in followup visit indicating up to about 50% improvement in overall pain with previous epidural injection. She returns today in followup visit with a pain score 4-5/10, which is a 50% reduction from her 10/10 pain at last visit. She is amenable to undergo next in the series of epidural injections today. She has been advised risks and benefits of procedure, states she understood and wished to proceed. 2. The patient and I did discuss that we are beginning to run low of management possibilities for her ongoing pain. She is on high dose of opioid and this can no longer be escalated further. She is on neuropathic pain medication at fairly high doses and increasing those medications has led to dysphoric effects in the past. She is limited now to epidural injections continuing current medication management, spinal cord stimulator or possible surgical options from this point. The patient and I discussed this at length today. She will consider those options based on whatever the effects of this epidural injection is today. She will contact our clinic with her decision process. 3. No medication changes made at today's visit. The patient will continue current medication management as previously prescribed. 4. We will see the patient back in followup visit for either the next in the series of lumbar epidural injections or for refill of medications at our predetermined appointment time. ��������������������������������������������� ���������������������������������������� By: ��������������������������������������������� Dc: 11/13/18 1019 [id number] Hawk Otoole DO /nt
[2018-11-13 08:41] VITALS: BP 158/82
--- NOTE | 2018-11-13 08:58 | NUR ---
Pain Clinic Assessment: 1. History of Osteoarthritis: B/L HANDS B/L KNEES B/L FEET SPINE History of Rheumatoid Arthritis: Not Applicable 2. Height: 5 ft. 4 in. 162.6 cm. Weight: 196.6 lb. oz. 89.177 kg. Patient's BMI: 33.7 3. Vital Signs: BP: 158/82 Pulse: 116 Resp: 20 Temp: 02 Sat: 95 ECG Mon: 4. Pain Intensity: 4-5 5. Fall Risk: Dizziness: N Needs help standing or walking: Y Fallen in the last 3 months: N Fall risk comments: FELL 2 MONTHS AGO. BLACKED OUT. WAS IN [facility]. 6. Patient on Blood Thinner: None 7. History of Hypertension: N 8. Opioid Therapy greater than 6 weeks: Y Opiate Contract Signed: 12/16/15 9. Risk Assessment Tool Provided: LOW RISK 0/3 10. Functional Assessment Tool: 11. Recreational Drug Use: Never Drug Type: Tobacco Use: Current Every Day Smoker Tobacco Type: Cigarettes Amount or Packs/day: 1 PACK How Many Years: Alcohol Use: No Frequency: Quant:
== END | disposition home or self-care (01) ==
LOC: PAIN 06:45
DX: M51.16 Intervertebral disc disorders with radiculopathy, lumbar region (principal); M47.27 Other spondylosis with radiculopathy, lumbosacral region; G89.29 Other chronic pain; I10 Essential (primary) hypertension; M19.90 Unspecified osteoarthritis, unspecified site; F11.20 Opioid dependence, uncomplicated; Z88.8 Allergy status to other drugs, medicaments and biological substances; Z79.899 Other long term (current) drug therapy; Z98.890 Other specified postprocedural states

== ENCOUNTER → 2018-11-20 | Outpatient (CLI) | payer OTHER, BC ==
[~2018-11-20] VITALS: Ht 162.6 cm; Wt 73.5 kg
[~2018-11-20] MED LIST changes: +NORTRIPTYLINE H75 M1 PO
[2018-11-20 10:51] VITALS: BP 148/86
--- NOTE | 2018-11-20 11:00 | NUR ---
Pain Clinic Assessment: 1. History of Osteoarthritis: B/L HANDS B/L KNEES B/L FEET SPINE History of Rheumatoid Arthritis: Not Applicable 2. Height: 5 ft. 4 in. 162.6 cm. Weight: 162.0 lb. oz. 73.483 kg. Patient's BMI: 27.8 3. Vital Signs: BP: 148/86 Pulse: 111 Resp: 18 Temp: 02 Sat: 96 ECG Mon: 4. Pain Intensity: 0 AFTER MEDICATION 5. Fall Risk: Dizziness: N Needs help standing or walking: N Fallen in the last 3 months: N Fall risk comments: FELL 2 MONTHS AGO. BLACKED OUT. WAS IN [facility]. 6. Patient on Blood Thinner: None 7. History of Hypertension: N 8. Opioid Therapy greater than 6 weeks: Y Opiate Contract Signed: 12/16/15 9. Risk Assessment Tool Provided: LOW RISK 0/3 10. Functional Assessment Tool: 11. Recreational Drug Use: Never Drug Type: Tobacco Use: Current Every Day Smoker Tobacco Type: Amount or Packs/day: How Many Years: Alcohol Use: No Frequency: Quant:
--- NOTE | 2018-11-22 08:00 | HPC ---
[facility] [address] [place] [address] PAIN MANAGEMENT CONSULTATION Name: KIM JIMENEZ Room #: REG JAYLIN Hall#: [id number] Admission: 11/20/18 ������������������ Attend Phys: Neela Hill Discharge: ������������������ Date of : 49 Report #: [id number] THIS REPORT FOR: //name// CC: Neela Matiason Barrett DATE OF SERVICE: 11/20/2018 CHIEF COMPLAINT: Low back pain, bilateral lower extremity pain and paresthesias. HISTORY OF PRESENT ILLNESS: This is a pleasant 73-year-old female who returns to the pain clinic today for refill of her medications for her chronic lumbar radiculopathy. She recently underwent an epidural steroid injection on 10/24. She tells me that that helped 70% of her pain and is still doing better in her lower back. Her main complaints today are her bilateral legs. She tells me they just hurt and they are worse at night or later in the day, almost like a cramping sensation that she feels like in her legs. She tells me that she is not having any problems with constipation, though she does have some urinary issues that she is going to see a urologist for again. She has had problems with this in the past and has had a bladder suspension, so she is going to return to that doctor. The patient tells me that she recently purchased some Luminas patches, which are bmfp-xkq-wzzgcuh patches that she has placed on her legs. She just started them yesterday. They are made up of several different herbs such as, turmeric, julius and magnesium that she is going to try. She also tells me that she takes CBD oil occasionally, but not on a regular basis. Her pain score today is 0/10. ALLERGIES: LISINOPRIL AND ORPHENADRINE. MEDICATIONS: Oxycodone 10/325 up to 5 times a day, nortriptyline 75 mg at bedtime, gabapentin 900 mg 3 times a day, Flonase p.r.n., meloxicam 15 mg daily, losartan 50 mg daily, Synthroid 50 mcg daily, Lipitor 40 mg daily, VESIcare 5 mg daily, Lantus subcutaneous at night, Restoril 30 mg daily, sertraline 100 mg daily, metformin 500 mg 2 tablets b.i.d., amlodipine 10 mg daily and aspirin 81 mg daily. PQRS: 1. She has known arthritic changes in her lumbar spine, bilateral hips and bilateral knees. No rheumatoid arthritis. 2. Height is 5 feet 4 inches, weight is 162, BMI is 27. 3. Vital signs: Blood pressure 148/86, pulse is 111, respirations 18, oxygen sat is 96. 4. Pain score is 0/10 today with medications. 5. Fall risk. Denies dizziness. Does not need help walking or standing. Has [address] [address] PAIN MANAGEMENT CONSULTATION Name: KIM JIMENEZ Room #: REG JAYLIN Hall#: [id number] Admission: 11/20/18 ������������������ Attend Phys: Neela Hill Discharge: ������������������ Date of : 49 Report #: [id number] not fallen in the last 3 months. 6. The patient is not on a blood thinner. She does take medicines for hypertension. 7. Opioid therapy is greater than 6 weeks; therefore, an opioid signed contract is on the chart. Her risk assessment tool is low. Her functional assessment is 37/70. 8. Recreational drug use, she denies. She is a current smoker and does not drink alcohol. We did check the prescription monitoring system. The patient is not due for another week for her medications, but here for her appointment today. She is filling from only doctors within our clinic. There is a drug screen on her chart within the past year as well. PHYSICAL EXAMINATION: GENERAL: This is a well-developed, well-nourished, well-hydrated exogenously obese 73-year-old female who appears her stated age, placing her pain score today at 0/10 with medications. HEENT: Normocephalic, atraumatic. Pupils equal, round and reactive to light. EXTREMITIES: No clubbing, no cyanosis, no edema. MUSCULOSKELETAL: Lower extremity strength is symmetrical in her lower extremities. Seated straight leg raising was negative. Her gait is antalgic favoring the left lower extremity over the right. ASSESSMENT: 1. Symptomatic lumbar radiculopathy. 2. Displacement of lumbar intervertebral disk with radiculopathy. 3. Lumbosacral spondylosis with radiculopathy. 4. Lumbar degeneration. 5. Opioid dependency. 6. Chronic intractable pain. We reviewed the fact that opiate medications are being used to provide analgesia adequate to support activities of daily living, not attempting to achieve a specific pain score on the 0-10 Visual Analog Scale. The current opiate medications are providing sufficient analgesia to allow the patient to participate in activities of daily living. The patient is not exhibiting any aberrant behavior suggestive of drug diversion. The patient is not having any adverse reactions to medications. The patient is not suffering from daytime somnolence or mental acuity changes. The patient is managing opiate-induced constipation with appropriate jxkp-rnv-phnewms agents and dietary considerations. The patient was counseled on concern for caution with operating a motor vehicle while using opiate medications. A physical exam was performed and the patient's functional status was evaluated. All patients with back pain were advised against the bed rest greater than [address] [facility] [place] [address] PAIN MANAGEMENT CONSULTATION Name: KIM JIMENEZ Room #: REG CLI ..#: [id number] Admission: 11/20/18 ������������������ Attend Phys: Neela Hill Discharge: ������������������ Date of : 49 Report #: [id number] days and were advised to return to normal activities. Pain score assessment was noted and the treatment plan was reviewed with the patient. All current medications, both prescribed and OTC were reviewed and reconciled on the electronic medical record. Tobacco screening was accomplished and smoking cessation was advised when indicated. BMI was noted and diet/exercise modification was recommended for all patients following outside normal parameters. I reviewed with the patient today their responsibilities to safeguard prescription medications, reviewed their responsibility to utilize medications only as prescribed by the physician. They are to seek and receive pain medications only from 1 physician group ( [facility]). They are to use 1 pharmacy and keep the clinic informed if they change pharmacies. Their responsibilities include making followup visits in a timely fashion and to avoid abrupt discontinuation of medication usage. Their responsibilities further include bringing their medications (bottles from the pharmacy with residual pills) to the visit for possible confirmation of pill counts and the patient understands it is their responsibility to submit to random drug screens to ensure both that the medications prescribed are present, and that no other controlled substances are present. All prescriptions provided today were generated electronically. PLAN: 1. We discussed treatment options with the patient today. The patient tells me that she is doing well, reporting her pain as 0/10. I discussed with her the lowest most effective dose. She is currently taking up to 5 oxycodone a day. I explained to her that we prefer her to take 4 tablets or lower when she is not experiencing pain. We do not want her to go through withdrawal, that is why I told her to go slowly first 4 tablets a day and then if she is able to decrease to 3 tablets a day, while she is doing better after her recent epidural, which she tells me gave her 70% at least improvement in her symptoms. The patient verbalizes understanding. She will try to make her pain medication last longer using the 150 for the month, but if she is able to make that last 5 or 6 weeks, she will try to do that, so a script was given for her oxycodone 10/325, #50 for release today, release in 1-week and again in 5 weeks. 2. The patient takes nortriptyline 75 mg at bedtime. Script given for #30 with one additional refill as well as gabapentin. The patient tells me that she has been taking 1200 mg 4 times a day. I explained to her that our prescription was for 900 mg. The patient tells me that she will decrease back to that level, 1200 mg 4 times a day, which would be 2700 mg a day, which I explained to her was over the recommended dosage and instructed her to decrease back to her 900 three times a day that we are prescribing for her. She verbalizes understanding and will taper her dose back down. 3. The patient will return in followup visit in 2 months' time period for refill of her medications. The patient will also use her new patches that she received [id number]-[id number] to see if that is helpful in decreasing some of her [facility] [address] [place] [address] PAIN MANAGEMENT CONSULTATION Name: KIM JIMENEZ Room #: OMAR CarmichaelR.#: [id number] Admission: 11/20/18 ������������������ Attend Phys: Neela Hill Discharge: ������������������ Date of : 49 Report #: [id number] pain, the new Luminas and occasionally uses CBD oil as well. The patient was seen by Dr. Hawk Otoole who collaborated care today. ��������������������������������������������� <ELECTRONICALLY SIGNED> ���������������������������������������� By: Neela Hill ��������������������������������������������� 11/22/18 0800 [id number] Neela Hill /nt
== END ==
LOC: PAIN 06:48
DX: M47.27 Other spondylosis with radiculopathy, lumbosacral region (principal); F11.20 Opioid dependence, uncomplicated; M51.26 Other intervertebral disc displacement, lumbar region; G89.4 Chronic pain syndrome; Z79.899 Other long term (current) drug therapy; Z88.8 Allergy status to other drugs, medicaments and biological substances

== ENCOUNTER → 2019-01-15 | Outpatient (CLI) | payer OTHER, BC ==
[~2019-01-15] VITALS: Ht 170.2 cm; Wt 85.7 kg
[~2019-01-15] MED LIST changes: +CBD OIL; +[UNRECOGNIZED DRUG - OTHER]
[2019-01-15 10:28] VITALS: BP 147/75
--- NOTE | 2019-01-15 10:34 | NUR ---
Pain Clinic Assessment: 1. History of Osteoarthritis: B/L HANDS B/L KNEES B/L FEET SPINE History of Rheumatoid Arthritis: Not Applicable 2. Height: 5 ft. 7 in. 170.2 cm. Weight: 189.0 lb. oz. 85.730 kg. Patient's BMI: 29.6 3. Vital Signs: BP: 147/75 Pulse: 98 Resp: 16 Temp: 02 Sat: 93 ECG Mon: 4. Pain Intensity: 7 5. Fall Risk: Dizziness: N Needs help standing or walking: N Fallen in the last 3 months: Y Fall risk comments: FELL 2 MONTHS AGO. BLACKED OUT. WAS IN [facility]. 6. Patient on Blood Thinner: None 7. History of Hypertension: N 8. Opioid Therapy greater than 6 weeks: Y Opiate Contract Signed: 12/16/15 9. Risk Assessment Tool Provided: LOW RISK 0/3 10. Functional Assessment Tool: 37 11. Recreational Drug Use: Never Drug Type: Tobacco Use: Current Every Day Smoker Tobacco Type: Amount or Packs/day: How Many Years: Alcohol Use: No Frequency: Quant:
--- NOTE | 2019-01-15 15:38 | HPC ---
[facility] [address] [place] [address] PAIN MANAGEMENT CONSULTATION Name: KIM JIMENEZ Room #: REG [facility] M.Mally.#: [id number] Admission: 01/15/19 ������������������ Attend Phys: Neela Hill Discharge: ������������������ Date of : 49 Report #: [id number] THIS REPORT FOR: //name// CC: Neela Hall MD DATE OF SERVICE: 01/15/2019 CHIEF COMPLAINT: Low back pain, bilateral lower extremity pain and paresthesias. HISTORY OF PRESENT ILLNESS: This is a pleasant 73-year-old female who returns to the pain clinic today for refill of her medications that she uses to help treat her ongoing low back pain that does radiate into her left leg. She tells me that her pain score is a 7/10 today, mostly an aching pain, worse with standing, even for very short periods of time and walking. She feels better when she is lying down or sitting. She tells me recently she had started some CBD oil. She finds that slightly beneficial as well as using a patch that is yrnn-nlr-ugwjxek of Luminas on her back. She does continue to take her oxycodone, her gabapentin and nortriptyline and finds those very beneficial. ALLERGIES: LISINOPRIL and ORPHENADRINE. CURRENT LIST OF MEDICATIONS: CBD oil, Luminas, gabapentin 900 mg 3 times a day, nortriptyline 75 mg at bedtime, oxycodone 10/325 five pills a day p.r.n., Flonase, meloxicam, Oseni, Cozaar, Synthroid, Lipitor, VESIcare, Lantus, Restoril, Zoloft, metformin, amlodipine and aspirin. PQRS: 1. She has arthritic changes in her hands, knees, feet and spine. Denies any rheumatoid arthritis. 2. Height is 5 feet 7 inches, weight is 189, BMI is 29. 3. Vital signs: Blood pressure 147/75, pulse is 98, respirations 16, oxygen sat is 93. 4. Pain score 7/10. 5. Fall risk. The patient does deny. Does complain of some dizziness. She does not use a cane or walker, but she has fallen several times recently and was in the hospital. 6. The patient is not on any blood thinners, does take medicine for hypertension. 7. Opioid therapy is greater than 6 weeks; therefore, an opioid signed contract is on the chart. Risk assessment tool is low. Functional assessment is 37/70. 8. Recreational drug use, she denies. She does smoke and [place] [address] PAIN MANAGEMENT CONSULTATION Name: KIM JIMENEZ Room #: REG CLR[facility]ard Hall#: [id number] Admission: 01/15/19 ������������������ Attend Phys: Neela Hill Discharge: ������������������ Date of : 49 Report #: [id number] According to the prescription monitoring system, the patient is due to fill her medications next week. We will check a random drug screen on the patient in the next visit. PHYSICAL EXAMINATION: GENERAL: This is a well-developed, well-nourished, well-hydrated, exogenous obese 73-year-old female who appears her stated age. She is alert and orientated, placing her pain score today at 7/10. HEENT: Normocephalic, atraumatic. Extraocular eye muscles are intact. EXTREMITIES: No clubbing, no cyanosis, no edema. MUSCULOSKELETAL: Lower extremity strength is symmetrical in her lower extremities and slightly diminished at 4/5. Seated straight leg raising was negative. Her gait is antalgic, favoring her left leg over her right. ASSESSMENT: 1. Symptomatic lumbar radiculopathy. 2. Displacement of lumbar intervertebral disk with radiculopathy. 3. Lumbosacral spondylosis with radiculopathy. 4. Lumbar degeneration. 5. Opioid dependency. 6. Chronic intractable pain. We reviewed the fact that opiate medications are being used to provide analgesia adequate to support activities of daily living, not attempting to achieve a specific pain score on the 0-10 Visual Analog Scale. The current opiate medications are providing sufficient analgesia to allow the patient to participate in activities of daily living. The patient is not exhibiting any aberrant behavior suggestive of drug diversion. The patient is not having any adverse reactions to medications. The patient is not suffering from daytime somnolence or mental acuity changes. The patient is managing opiate-induced constipation with appropriate ubox-mmq-dhrztan agents and dietary considerations. The patient was counseled on concern for caution with operating a motor vehicle while using opiate medications. A physical exam was performed and the patient's functional status was evaluated. All patients with back pain were advised against the bed rest greater than 4 days and were advised to return to normal activities. Pain score assessment was noted and the treatment plan was reviewed with the patient. All current medications, both prescribed and OTC were reviewed and reconciled on the electronic medical record. Tobacco screening was accomplished and smoking cessation was advised when indicated. BMI was noted and diet/exercise modification was recommended for all patients following outside normal parameters. I reviewed with the patient today their responsibilities to [address] [address] PAIN MANAGEMENT CONSULTATION Name: KIM JIMENEZ Room #: REG [facility]#: [id number] Admission: 01/15/19 ������������������ Attend Phys: Neela Hill Discharge: ������������������ Date of : 49 Report #: [id number] prescription medications, reviewed their responsibility to utilize medications only as prescribed by the physician. They are to seek and receive pain medications only from 1 physician group ( [facility]). They are to use 1 pharmacy and keep the clinic informed if they change pharmacies. Their responsibilities include making followup visits in a timely fashion and to avoid abrupt discontinuation of medication usage. Their responsibilities further include bringing their medications (bottles from the pharmacy with residual pills) to the visit for possible confirmation of pill counts and the patient understands it is their responsibility to submit to random drug screens to ensure both that the medications prescribed are present, and that no other controlled substances are present. All prescriptions provided today were generated electronically. PLAN: 1. We discussed treatment options with the patient today. The patient tells me that her pain medicine is helping her get through each day. She tells me that she finds it very beneficial and does not have any side effects of constipation or daytime sleepiness from this medicine. Scripts given today for oxycodone 10/325, #150 for release today and 4 week, this does place the patient at 75 morphine mEq according to the CDC guidelines; therefore, she is seen every 2 months. 2. Scripts given for gabapentin 300 mg three t.i.d., #270 with 1 refill; and nortriptyline 75 mg at bedtime, #30 with 1 refill. 3. The patient was talking about her blood sugars. I encouraged her if she is not taking care of her blood sugars, the consequences of blood pressure and kidney issues arise, so if she is unhappy with her current regieme and treatment, then therefore she should seek another doctor instead of having high blood sugars and not having it managed closely. The patient verbalizes understanding. She will talk to her primary regarding this. 4. The patient tells me she has been using some CBD oil. She finds it beneficial in controlling some of her pain. 5. The patient is seen today in collaboration with Dr. Hawk Otoole. ��������������������������������������������� <ELECTRONICALLY SIGNED> ���������������������������������������� By: Nelea Hill ��������������������������������������������� 01/15/19 1538 [id number] Neela Hill /nt
== END ==
LOC: PAIN 10:03
DX: M47.27 Other spondylosis with radiculopathy, lumbosacral region (principal); M51.16 Intervertebral disc disorders with radiculopathy, lumbar region; G89.29 Other chronic pain; M79.605 Pain in left leg; M79.604 Pain in right leg; R20.2 Paresthesia of skin; Z79.891 Long term (current) use of opiate analgesic

== ENCOUNTER → 2019-03-20 | Outpatient (CLI) | payer OTHER, BC ==
[~2019-03-20] VITALS: Ht 170.2 cm; Wt 84.8 kg
[2019-03-20 12:36] VITALS: BP 127/81
--- NOTE | 2019-03-20 12:47 | NUR ---
Pain Clinic Assessment: 1. History of Osteoarthritis: B/L HANDS B/L KNEES B/L FEET SPINE History of Rheumatoid Arthritis: Not Applicable 2. Height: 5 ft. 7 in. 170.2 cm. Weight: 187.0 lb. oz. 84.823 kg. Patient's BMI: 29.3 3. Vital Signs: BP: 127/81 Pulse: 90 Resp: 16 Temp: 02 Sat: 96 ECG Mon: 4. Pain Intensity: 8 5. Fall Risk: Dizziness: Y Needs help standing or walking: Y Fallen in the last 3 months: Y Fall risk comments: FELL A FEW WEEKS AGO-R/T DIZZINESS. DOESN'T FALL WHEN USES CANE. 6. Patient on Blood Thinner: None 7. History of Hypertension: Y 8. Opioid Therapy greater than 6 weeks: Y Opiate Contract Signed: 12/16/15 9. Risk Assessment Tool Provided: LOW RISK 0/3 10. Functional Assessment Tool: 37/ 11. Recreational Drug Use: Never Drug Type: Tobacco Use: Current Every Day Smoker Tobacco Type: Cigarettes Amount or Packs/day: 1 How Many Years: 20 Alcohol Use: No Frequency: Quant:
--- NOTE | 2019-03-26 09:02 | HPC ---
[facility] [address] [place] [address] PAIN MANAGEMENT CONSULTATION Name: KIM JIMENEZ Room #: REG [facility] Isabel#: [id number] Admission: 03/20/19 ������������������ Attend Phys: Neela Hill Discharge: ������������������ Date of : 49 Report #: [id number] THIS REPORT FOR: //name// CC: Neela Hyde MD DATE OF SERVICE: 03/20/2019 CHIEF COMPLAINT: Low back pain, bilateral lower extremity pain and paresthesias and right knee pain. HISTORY OF PRESENT ILLNESS: This is a 73-year-old female who returns to the pain clinic today for refills of her medication. She is treated with oxycodone and gabapentin for her chronic lumbar radiculopathy. She has also been treated with several epidurals that have been significantly beneficial for her in relieving some of her pain. She tells me her pain is an 8/10 today. It is a dull, throbbing and intermittent pain, worse when her medications wear off and worse when she walks any prolonged period of time. She tells me she has to go and sit down, which does relieve it or lying down is beneficial as well. She is thinking about having another epidural since she had greater than 70% relief but is waiting to have closer to the holidays. Today, she is in need of only her oxycodone. ALLERGIES: LISINOPRIL and ORPHENADRINE. CURRENT LIST OF MEDICATIONS: Oxycodone 325, nortriptyline 75 mg at bedtime, gabapentin 900 mg 3 times a day, Luminas, CBD oil, meloxicam, Cozaar, Synthroid, Lipitor, VESIcare, Lantus, Zoloft, metformin, amlodipine, and aspirin. PQRS: 1. She has osteoarthritis in her knees, hands, feet, and spine. Denies any rheumatoid arthritis. 2. Height is 5 feet 7 inches, weight is 187, BMI is 29. 3. Vital signs 127/81, pulse is 90, respirations 16, oxygen sat is 96. 4. Pain score is 8/10. 5. Complains of dizziness, does occasionally use a cane, tells me she has fallen in the last 3 months. 6. The patient is not on any blood thinners, but does take medicine for hypertension. 7. Opioid therapy is greater than 6 weeks; therefore, an opioid signed contract is on the chart. Risk assessment is low. Functional assessment is 37/70. 8. Recreational drug use, she denies. She is a current smoker of cigarettes, about a pack a day, [place] [address] PAIN MANAGEMENT CONSULTATION Name: KIM JIMENEZ MING Room #: REG JAYLIN Hall#: [id number] Admission: 03/20/19 ������������������ Attend Phys: Neela Hill Discharge: ������������������ Date of : 49 Report #: [id number] According to the prescription monitoring system, the patient is due next week for her oxycodone. She is filling appropriately and in a timely fashion. There is a drug screen on the chart and we will repeat it randomly at the next visit. PHYSICAL EXAMINATION: GENERAL: This is a well-developed, well-nourished, well-hydrated 73-year-old female who appears her stated age, placing her current pain score at 8/10. HEENT: Normocephalic, atraumatic. Extraocular eye muscles are intact. Mucous membranes are moist. EXTREMITIES: No clubbing, no cyanosis. Slight lower extremity edema of 1+ in her bilateral legs. MUSCULOSKELETAL: Lower extremity strength is symmetrical in her lower extremities. Slight decreased strength noted in hip flexion, knee extension of the left when compared to the right. Seated straight raising is negative. Gait is antalgic favoring her left lower extremity to the right. Modified Gaenslen's positive for axial low back pain. ASSESSMENT: 1. Symptomatic lumbar radiculopathy. 2. Displacement of lumbar intervertebral disk with radiculopathy. 3. Lumbosacral spondylosis with radiculopathy. 4. Lumbar degeneration. 5. Opioid dependency. 6. Chronic intractable pain. We reviewed the fact that opiate medications are being used to provide analgesia adequate to support activities of daily living, not attempting to achieve a specific pain score on the 0-10 Visual Analog Scale. The current opiate medications are providing sufficient analgesia to allow the patient to participate in activities of daily living. The patient is not exhibiting any aberrant behavior suggestive of drug diversion. The patient is not having any adverse reactions to medications. The patient is not suffering from daytime somnolence or mental acuity changes. The patient is managing opiate-induced constipation with appropriate jjsk-mkg-dxrobjr agents and dietary considerations. The patient was counseled on concern for caution with operating a motor vehicle while using opiate medications. A physical exam was performed and the patient's functional status was evaluated. All patients with back pain were advised against the bed rest greater than 4 days and were advised to return to normal activities. Pain score assessment was noted and the treatment plan was reviewed with the patient. All current medications, both prescribed and OTC were reviewed and reconciled on the electronic medical record. Tobacco screening was accomplished and smoking cessation was advised when indicated. BMI was noted and diet/exercise modification was recommended for all patients following outside normal parameters. [facility] [address] [place] [address] PAIN MANAGEMENT CONSULTATION Name: KIM JIMENEZ Room #: REG CLRichard Reynolds.#: [id number] Admission: 03/20/19 ������������������ Attend Phys: Neela GIO Hill Discharge: ������������������ Date of : 47 Report #: [id number] I reviewed with the patient today their responsibilities to safeguard prescription medications, reviewed their responsibility to utilize medications only as prescribed by the physician. They are to seek and receive pain medications only from 1 physician group ( [facility]). They are to use 1 pharmacy and keep the clinic informed if they change pharmacies. Their responsibilities include making followup visits in a timely fashion and to avoid abrupt discontinuation of medication usage. Their responsibilities further include bringing their medications (bottles from the pharmacy with residual pills) to the visit for possible confirmation of pill counts and the patient understands it is their responsibility to submit to random drug screens to ensure both that the medications prescribed are present, and that no other controlled substances are present. All prescriptions provided today were generated electronically. PLAN: 1. We discussed treatment options with the patient today. The patient has had good success with lumbar epidural steroid injections in the past following the L5-S1 dermatomal distribution greater than 70%. I believe this will be beneficial if the patient has another injection since her pain has slowly been increasing and her pain medicine she feels is not lasting as long. After discussion, the patient decided that she will call for an appointment at the beginning of May for an epidural, so it will be helpful during the holiday season. 2. Scripts were renewed today for her oxycodone 10/325. The patient takes up to 5 tablets a day, #150 filled for today and 4-week release. The patient denies any problems with constipation, though she does occasionally have daytime sleepiness, but does not believe this is medication related. According to the CDC guidelines, her morphine mEq is 75 morphine mEq. 3. As I stated above, the patient is having some daytime sleepiness. I did encourage her to talk to her primary care doctor about this and possibly even having a sleep study performed to see why she does fall asleep throughout the day. 4. The patient does not need gabapentin or nortriptyline. She has plenty of that medication at home. The patient will call for an appointment for an injection in May. The patient is seen in collaboration today with Dr. Timoteo Pimentel. ��������������������������������������������� <ELECTRONICALLY SIGNED> ���������������������������������������� By: Neela Hill ��������������������������������������������� 03/26/19 0902 [id number] 0108 Neela Hill /vandana
== END ==
LOC: PAIN 07:06
DX: M51.16 Intervertebral disc disorders with radiculopathy, lumbar region (principal); M47.27 Other spondylosis with radiculopathy, lumbosacral region; F11.20 Opioid dependence, uncomplicated; G89.4 Chronic pain syndrome; Z88.8 Allergy status to other drugs, medicaments and biological substances; Z79.899 Other long term (current) drug therapy

== ENCOUNTER → 2019-04-30 | Outpatient (CLI) | payer OTHER, BC ==
[~2019-04-30] VITALS: Ht 170.2 cm; Wt 86.0 kg
[~2019-04-30] MED LIST changes: +NOVOLOG FL100 UNIT/M SUBQ
[2019-04-30 08:27] VITALS: BP 154/84
--- NOTE | 2019-04-30 08:41 | NUR ---
Pain Clinic Assessment: 1. History of Osteoarthritis: B/L HANDS B/L KNEES B/L FEET SPINE History of Rheumatoid Arthritis: Not Applicable 2. Height: 5 ft. 7 in. 170.2 cm. Weight: 189.6 lb. oz. 86.002 kg. Patient's BMI: 29.7 3. Vital Signs: BP: 154/84 Pulse: 106 Resp: 18 Temp: 02 Sat: 100 ECG Mon: 4. Pain Intensity: 9 5. Fall Risk: Dizziness: N Needs help standing or walking: Y Fallen in the last 3 months: N Fall risk comments: FELL A FEW WEEKS AGO-R/T DIZZINESS. DOESN'T FALL WHEN USES CANE. 6. Patient on Blood Thinner: None 7. History of Hypertension: Y 8. Opioid Therapy greater than 6 weeks: Y Opiate Contract Signed: 12/16/15 9. Risk Assessment Tool Provided: LOW RISK 0/3 10. Functional Assessment Tool: 37/ 11. Recreational Drug Use: Never Drug Type: Tobacco Use: Current Every Day Smoker Tobacco Type: Cigarettes Amount or Packs/day: 1 PACK How Many Years: Alcohol Use: No Frequency: Quant:
--- NOTE | 2019-05-07 12:48 | HPC ---
[facility] [address] [place] [address] PAIN MANAGEMENT CONSULTATION Name: KIM JIMENEZ Room #: REG [facility] M.R.#: [id number] Admission: 04/30/19 Attend Phys: Hawk Otoole DO Discharge: Date of : 47 Report #: [id number] THIS REPORT FOR: //name// CC: Hawk Hyde MD DATE OF SERVICE: 04/30/2019 REFERRING physician: Dr. Aster Hyde. CHIEF COMPLAINT: Low back pain, bilateral lower extremity pain with paresthesias. HISTORY OF PRESENT ILLNESS: As you know, the patient is a 73-year-old female, returning in followup visit with increasing overall pain and decreasing function. She is now placing her pain score at 9/10. She states she has had a fall a few weeks ago, believes this is due to "her legs giving out." She returns today in followup visit, stating that medication management is no longer effective for pain control. She wishes to look forward to spinal cord stimulator trial implantation. As you are aware, the patient has completed psychiatric evaluation, which showed no concerning psychopathology. She does wish to move forward with trial implantation, prior authorizations. She denies injury or trauma that may have led to symptom reoccurrence. ALLERGIES: LISINOPRIL, ORPHENADRINE. CURRENT MEDICATIONS: NovoLog 100 units subcutaneously before each meal, Percocet 10/325 one tab every 4 hours p.r.n. for pain, nortriptyline 75 mg p.o. at bedtime, gabapentin 900 mg t.i.d., CBD oil twice a day, meloxicam 15 mg once a day, losartan 50 mg once a day, levothyroxine 50 mcg per day, atorvastatin 40 mg per day, VESIcare 5 mg once a day, Lantus 30 units subcutaneously per day, sertraline 100 mg per day, metformin 500 mg 2 tabs b.i.d., amlodipine 10 mg per day, aspirin 81 mg per day. SOCIAL HISTORY: The patient denies tobacco, alcohol, IV or illicit drug use. She is unaccompanied today. IMAGING: No new imaging available. PQRS: The patient has known arthritic changes of the bilateral hands, knees, feet and lumbar spine. Denies rheumatoid arthritis. She is placing current pain score at 9/10. She is a fall risk as she has had a fall in the last 3 months. She is using a cane for ambulation. She does not use a roller walker. She is not on blood thinners, but is treated for hypertension. She is on chronic opioids and has a low opioid addiction potential. Pain impact score [address] [address] PAIN MANAGEMENT CONSULTATION Name: KIM JIMENEZ MING Room #: REG C[facility]ard Hall#: [id number] Admission: 04/30/19 Attend Phys: Hawk Otoole DO Discharge: Date of : 47 Report #: [id number] 37/70, indicating moderate interference in daily activities secondary to pain. PHYSICAL EXAMINATION: VITAL SIGNS: Blood pressure 154/84, pulse 106, respiratory rate 18 and unlabored. The patient is 100% on room air. Height 5 feet 7 inches tall, weight 189.6 pounds, BMI calculated 29.7. GENERAL: Well-developed, well-nourished, well-hydrated 73-year-old female appearing stated age. Pain is rated today at 9/10. HEENT: Normocephalic, atraumatic. Pupils equal, round, reactive to light. Extraocular muscles are intact. NEUROLOGIC: Speech fluent. The patient deemed a good historian. EXTREMITIES: Show no clubbing, no cyanosis and no edema. MUSCULOSKELETAL: Lower extremity strength is equal and symmetrical, but diminished bilaterally, approximately 4.5/5. Muscle bulk and tone equal and symmetrical in comparing lower extremities. Ankle clonus negative. Babinski is negative. Seated straight leg raising was negative. Supine straight leg raising positive on the left greater than right. Gait is antalgic, favoring the left lower extremity over the right. ASSESSMENT: 1. Symptomatic lumbar radiculopathy. 2. Displacement of lumbar intervertebral disk with radiculopathy. 3. Lumbosacral spondylosis with radiculopathy. 4. Lumbar degeneration. 5. Opioid dependency. 6. Chronic intractable pain. PLAN: 1. The patient has returned today in followup visit, indicating that her pain has greatly increased over the past couple of weeks. She denies injury or trauma. She returns to discuss the possibility of moving forward with preauthorization for a spinal cord stimulator. The patient has successfully completed psychiatric evaluation with no noted psychopathology concerning for issues that might preclude us from having the patient undergo the procedure, and ultimate permanent implant if it is effective. We will begin the authorization process immediately; I advised the patient this could take a couple of weeks to a month to complete. Once this has been completed and we have received the authorization, we will have the patient then scheduled to undergo the trial implantation. We will begin the authorization process immediately. 2. The patient was provided refill prescription of gabapentin 300 mg tablets; she is to take 3 tabs t.i.d., #270 with 1 refill, 2 months' worth of medication. 3. We reviewed the fact that opiate medications are being used to provide analgesia adequate to support activities of daily living, not attempting to achieve a specific pain score on the 0-10 Visual Analog Scale. The current opiate medications are providing sufficient analgesia to allow the patient to participate in activities of daily living. The patient is not exhibiting any [facility] [address] [place] [address] PAIN MANAGEMENT CONSULTATION Name: KIM JIMENEZ Room #: REG [facility] M.Mally.#: [id number] Admission: 04/30/19 Attend Phys: Hawk Otoole DO Discharge: Date of : 47 Report #: [id number] aberrant behavior suggestive of drug diversion. The patient is not having any adverse reactions to medications. The patient is not suffering from daytime somnolence or mental acuity changes. The patient is managing opiate-induced constipation with appropriate vtzs-iqg-ytambqw agents and dietary considerations. The patient was counseled on concern for caution with operating a motor vehicle while using opiate medications. A physical exam was performed and the patient's functional status was evaluated. All patients with back pain were advised against the bed rest greater than 4 days and were advised to return to normal activities. Pain score assessment was noted and the treatment plan was reviewed with the patient. All current medications, both prescribed and OTC were reviewed and reconciled on the electronic medical record. Tobacco screening was accomplished and smoking cessation was advised when indicated. BMI was noted and diet/exercise modification was recommended for all patients following outside normal parameters. I reviewed with the patient today their responsibilities to safeguard prescription medications, reviewed their responsibility to utilize medications only as prescribed by the physician. They are to seek and receive pain medications only from 1 physician group ( [facility]). They are to use 1 pharmacy and keep the clinic informed if they change pharmacies. Their responsibilities include making followup visits in a timely fashion and to avoid abrupt discontinuation of medication usage. Their responsibilities further include bringing their medications (bottles from the pharmacy with residual pills) to the visit for possible confirmation of pill counts and the patient understands it is their responsibility to submit to random drug screens to ensure both that the medications prescribed are present, and that no other controlled substances are present. All prescriptions provided today were generated electronically. 4. The patient was provided prescription for oxycodone one tab p.o. 4 hours p.r.n. for pain. I have given the patient #150 tablets. She will continue this medication as directed. 5. We will see the patient back in followup visit once we have completed the prior authorization process for her to undergo a spinal cord stimulator trial implantation. We will schedule with her the implantation date, and discussed the week-long trial at our followup visit. <ELECTRONICALLY SIGNED> By: Hawk Otoole DO 05/07/19 1248 0750 [id number] Hawk Otoole DO /nt
== END ==
LOC: PAIN 06:48
DX: M51.16 Intervertebral disc disorders with radiculopathy, lumbar region (principal); M47.27 Other spondylosis with radiculopathy, lumbosacral region; G89.4 Chronic pain syndrome; M79.661 Pain in right lower leg; M79.662 Pain in left lower leg; Z88.8 Allergy status to other drugs, medicaments and biological substances; Z79.899 Other long term (current) drug therapy; Z79.891 Long term (current) use of opiate analgesic

== ENCOUNTER → 2019-06-04 | Outpatient (CLI) | payer OTHER, BC ==
[~2019-06-04] VITALS: Ht 170.2 cm; Wt 83.0 kg
[2019-06-04 08:09] VITALS: BP 147/85
--- NOTE | 2019-06-04 08:15 | NUR ---
Pain Clinic Assessment: 1. History of Osteoarthritis: B/L HANDS B/L KNEES B/L FEET SPINE History of Rheumatoid Arthritis: Not Applicable 2. Height: 5 ft. 7 in. 170.2 cm. Weight: 183.0 lb. oz. 83.008 kg. Patient's BMI: 28.7 3. Vital Signs: BP: 147/85 Pulse: 94 Resp: 18 Temp: 02 Sat: 93 ECG Mon: 4. Pain Intensity: 2 5. Fall Risk: Dizziness: N Needs help standing or walking: N Fallen in the last 3 months: N Fall risk comments: FELL A FEW WEEKS AGO-R/T DIZZINESS. DOESN'T FALL WHEN USES CANE. 6. Patient on Blood Thinner: None 7. History of Hypertension: Y 8. Opioid Therapy greater than 6 weeks: Y Opiate Contract Signed: 12/16/15 9. Risk Assessment Tool Provided: LOW RISK 0 10. Functional Assessment Tool: 11. Recreational Drug Use: Never Drug Type: Tobacco Use: Current Every Day Smoker Tobacco Type: Cigarettes Amount or Packs/day: 1 pack How Many Years: 20 Alcohol Use: No Frequency: Quant:
--- NOTE | 2019-06-05 12:58 | HPC ---
[facility] [place] [address] PAIN MANAGEMENT CONSULTATION Name: KIM JIMENEZ Room #: REG JAYLIN Griffith.Mally.#: [id number] Admission: 06/04/19 Attend Phys: Hawk Otoole DO Discharge: Date of : 47 Report #: [id number] THIS REPORT FOR: //name// CC: Hawk Hyde MD DATE OF SERVICE: 06/04/2019 REFERRING PHYSICIAN: Aster Hyde MD CHIEF COMPLAINT: Low back pain, bilateral lower extremity pain with paresthesias. HISTORY OF PRESENT ILLNESS: As you know, the patient is a 73-year-old female returning in followup visit, reporting pain score up to 2/10 that radiates to 8/10 depending on activity. She states that combination of medications and stretching exercises at home provide some improvement. She does wish to discuss recent psychiatric evaluation and move forward with scheduling of the spinal cord stimulator. She is also requesting refill of medications at current dosing, though she is indicating less efficacy of the medications of late. It does appear the patient is beginning to suffer from tolerance to the therapy. She returns today to begin planning a spinal cord stimulator implant and medication refills. ALLERGIES: LISINOPRIL, ORPHENADRINE. CURRENT MEDICATIONS: NovoLog 100 units subcutaneous before each meal, Percocet 10/325 mg q. 4 hours p.r.n. pain, amitriptyline 75 mg p.o. at bedtime, gabapentin 900 mg t.i.d., CBD oil twice a day, meloxicam 15 mg once a day, losartan 50 mg per day, levothyroxine 50 mcg per day, atorvastatin 40 mg per day, VESIcare 5 mg per day, Lantus 30 units subcutaneous per day, sertraline 100 mg per day, metformin 500 mg 2 tabs b.i.d., amlodipine 10 mg per day, aspirin 81 mg per day. SOCIAL HISTORY: The patient denies tobacco, alcohol, IV or illicit drug use. She is unaccompanied today. IMAGING: No new imaging available. PQRS: The patient has known arthritic changes of bilateral hands, bilateral knees and lumbar spine. Denies rheumatoid arthritis. She is placing pain intensity today 08/12. She is not at fall risk, has not had a fall in last 3 months. She is not on blood thinners, but is treated for hypertension. She is on chronic opioids and has a low opiate addiction potential. Pain impact score of 37/70, moderate interference of daily activities secondary to pain. [address] [address] PAIN MANAGEMENT CONSULTATION Name: KIM JIMENEZ Room #: REG [facility]#: [id number] Admission: 06/04/19 Attend Phys: Hawk Otoole DO Discharge: Date of : 47 Report #: [id number] PHYSICAL EXAMINATION: VITAL SIGNS: Blood pressure 147/85, pulse 94, respiratory rate 18 and unlabored. The patient is 93% on room air. Height 5 feet 7 inches tall, weighs 183 pounds, BMI calculated 28.7. GENERAL: Well-developed, well-nourished, well-hydrated 73-year-old female appearing stated age, pain is rated around 2/10. HEENT: Normocephalic, atraumatic. Pupils equal, round, reactive to light. EXTREMITIES: Show no clubbing, no cyanosis, and no edema. MUSCULOSKELETAL: Ankle clonus remains negative. Babinski is negative. Gait is antalgic, appears to be favoring left lower extremity over right. Seated straight leg raising negative. Supine straight leg raising positive on the left. ASSESSMENT: 1. Symptomatic lumbar radiculopathy. 2. Displacement of lumbar intervertebral disk with radiculopathy. 3. Lumbosacral spondylosis with radiculopathy. 4. Lumbar degeneration. 5. Opioid dependency. 6. Chronic intractable pain. PLAN: 1. The patient returns today in followup visit where we have reviewed in its entirety, the psychiatric evaluation performed in preparation for spinal cord stimulator trial implantation. The patient is deemed an appropriate candidate and has no psychopathology that would preclude us from moving forward with the implantation. 2. We have scheduled the patient to undergo spinal cord stimulator trial implantation with the Nevro device next week. The patient will schedule with our commodity buyer to confirm that time, but tentatively set for 06/11/2019. The patient was advised of the post-procedural week and how it will proceed due to restrictions with the device itself. She will clear her schedule to be able to accommodate those restrictions. 3. The patient was provided a refill prescription of her gabapentin 300 mg dose. She is to take 3 tabs p.o. t.i.d., given the patient #270 tablets with 1 refill, 2 months' worth of medication. 4. The patient was provided a prescription of nortriptyline 75 mg dose 1 tab p.o. at bedtime. I have given the patient #30 tablets, one refill. 5. The patient was provided a prescription of oxycodone/acetaminophen 10/325 one tab p.o. q. 4 hours p.r.n. for pain. Again, the patient #150 releasing today and 4 weeks from today, 2 months' worth of medication. The patient was advised to take this medication only as directed. 6. We will see the patient back in followup visit to undergo spinal cord stimulator trial implantation. At that time, we will discuss the risks and the benefits of the procedure. We have given the patient information today about [facility] [address] [place] [address] PAIN MANAGEMENT CONSULTATION Name: KIM JIMENEZ Room #: REG CL Isabel#: [id number] Admission: 06/04/19 Attend Phys: Hawk Otoole DO Discharge: Date of : 47 Report #: [id number] those risks to review prior to the procedure day. She was also given some instructions on preprocedure days. We will see her back to undergo spinal cord stimulator trial implantation on 06/11/2019. <ELECTRONICALLY SIGNED> By: Hawk Otoole DO 06/05/19 1258 0905 0922 Hawk Otoole DO /nt
== END ==
LOC: PAIN 06:44
DX: M47.27 Other spondylosis with radiculopathy, lumbosacral region (principal); M51.16 Intervertebral disc disorders with radiculopathy, lumbar region; F11.20 Opioid dependence, uncomplicated; G89.4 Chronic pain syndrome

== ENCOUNTER → 2019-06-11 | Outpatient (CLI) | payer OTHER, BC ==
[~2019-06-11] VITALS: Ht 170.2 cm; Wt 83.5 kg
[2019-06-11 07:23] VITALS: BP 144/85
--- NOTE | 2019-06-11 07:24 | NUR ---
Pain Clinic Assessment: 1. History of Osteoarthritis: B/L HANDS B/L KNEES B/L FEET SPINE History of Rheumatoid Arthritis: Not Applicable 2. Height: 5 ft. 7 in. 170.2 cm. Weight: 184.0 lb. oz. 83.462 kg. Patient's BMI: 28.8 3. Vital Signs: BP: 144/85 Pulse: 101 Resp: 16 Temp: 02 Sat: 97 ECG Mon: 4. Pain Intensity: 7 5. Fall Risk: Dizziness: N Needs help standing or walking: N Fallen in the last 3 months: N Fall risk comments: FELL A FEW WEEKS AGO-R/T DIZZINESS. DOESN'T FALL WHEN USES CANE. 6. Patient on Blood Thinner: None 7. History of Hypertension: Y 8. Opioid Therapy greater than 6 weeks: Y Opiate Contract Signed: 12/16/15 9. Risk Assessment Tool Provided: LOW RISK 0 10. Functional Assessment Tool: 37/ 11. Recreational Drug Use: Never Drug Type: Tobacco Use: Current Every Day Smoker Tobacco Type: Cigarettes Amount or Packs/day: 1 PACK How Many Years: Alcohol Use: No Frequency: Quant:
--- NOTE | 2019-06-11 12:56 | HPC ---
[facility] [address] [place] [address] PAIN MANAGEMENT CONSULTATION Name: KIM JIMENEZ Room #: REG [facility]..#: [id number] Admission: 06/11/19 Attend Phys: Hawk Otoole DO Discharge: Date of : 47 Report #: [id number] THIS REPORT FOR: //name// CC: Hawk Hyde MD DATE OF SERVICE: 06/11/2019 REFERRING PHYSICIAN: Dr. Aster Hyde. CHIEF COMPLAINT: Low back pain, bilateral lower extremity pain, left greater than right. HISTORY OF PRESENT ILLNESS: As you know, the patient is a very pleasant 73-year-old female who returns today in followup visit for a spinal cord stimulator trial implantation to determine if the Nevro device would be beneficial for ongoing pain control. The patient has undergone epidural injections under fluoroscopic guidance with a transient improvement in symptoms. She has sought Surgical consultation who has advised the patient at this time she is not a surgical candidate and recommended a spinal cord stimulator. We have completed the workup for the spinal cord stimulator and she has successfully completed all pretrial requirements. She returns today to undergo spinal cord stimulator trial implantation. The patient is placing pain today at 7/10. ALLERGIES: LISINOPRIL, ORPHENADRINE. CURRENT MEDICATIONS: Percocet, nortriptyline, gabapentin, insulin, meloxicam, losartan, levothyroxine, atorvastatin, VESIcare, Lantus, sertraline, metformin, amlodipine and aspirin. SOCIAL HISTORY: The patient smokes 1 pack tobacco per day, has done so for years. Denies IV or illicit drug use. Denies any chronic alcohol use. She is accompanied by her present in room today. IMAGING: No new imaging available. PQRS: The patient has known arthritic changes of the lumbar spine, bilateral hands, bilateral knees, bilateral feet. No rheumatoid arthritis. She is placing pain intensity is 7/10. She is not a fall risk, has not had a fall in last 3 months. She does use a cane for balance and ambulation. She is not on blood thinners. She is treated for hypertension. She is on chronic opioids, has a low opioid addiction potential. Pain impact score 37/70 indicating moderate interference of daily activities secondary to pain. [address] [address] PAIN MANAGEMENT CONSULTATION Name: KIM JIMENEZ [id number] Admission: 06/11/19 Attend Phys: Hawk Otoole DO Discharge: Date of : 49 Report #: [id number] PHYSICAL EXAMINATION: VITAL SIGNS: Blood pressure 144/85, pulse 101, respiratory rate 16 and unlabored. The patient is 97% on room air. Height 5 feet 7 inches tall, weight 184 pounds, BMI calculated 28.8. GENERAL: Well-developed, well-nourished, well-hydrated 73-year-old female appearing stated age, pain is rated around 7/10. HEENT: Normocephalic, atraumatic. Pupils equal, round, reactive to light. Speech fluent. EXTREMITIES: Show no clubbing, no cyanosis, no edema. MUSCULOSKELETAL: Lower extremity strength equal and symmetrical 5/5, intact to light touch from L1 through S2 dermatomes. Seated straight leg raising negative. Supine straight leg raising positive left greater than right. Ankle clonus negative. Babinski is negative. ASSESSMENT: 1. Symptomatic lumbar radiculopathy. 2. Displacement of lumbar intervertebral disk with radiculopathy. 3. Lumbosacral spondylosis with radiculopathy. 4. Lumbar degeneration. 5. Opioid dependency. 6. Chronic intractable pain. PLAN: 1. The patient has returned today in followup visit having completed all prerequisites to undergo spinal cord stimulator trial implantation. The patient is placing current pain score at 7/10. The patient has been advised of the risks and benefits of a spinal cord stimulator trial. These risks include but are not necessarily limited to bleeding, bruising, infection, worsening pain, no relief of pain, also risk of temporary or permanent muscle weakness, temporary or permanent nerve damage, possible paralysis, post-dural puncture headache and . The patient states understood and wished to proceed. 2. We will see the patient back in followup visit in 1 week. At that time, review the efficacy of the spinal cord stimulator to determine if moving on to permanent implant would be recommended. The patient was advised we will be following up with her on a daily basis in regards to the efficacy of the device and pain improvement. The patient was advised if she notes any concerning issues such as fever, chills, night sweats, excessive drainage at the site, increasing pain at the insertion sites or headache, she is to contact the on-call pain physician. We have made the patient's appointment back with us in 1 week for explantation of device and discuss efficacy. PROCEDURE NOTE: DESCRIPTION OF PROCEDURE: Two lead spinal cord stimulator trial implantation. After obtaining written consent, a 22-gauge IV Hep-Lock was placed in the [address] [address] PAIN MANAGEMENT CONSULTATION Name: KIM JIMENEZ Room #: REG [facility]#: [id number] Admission: 06/11/19 Attend Phys: Hawk Otoole DO Discharge: Date of : 47 Report #: [id number] patient's right upper extremity. The patient was given IV prophylactic antibiotic infused over 30 minutes prior to procedure. The patient was then taken to the fluoroscopy suite, placed in prone position with 2 pillows under the abdomen to decrease lumbar lordosis and increase the thoracic kyphosis. Cardiopulmonary monitoring was established and the patient's vital signs were monitored throughout the procedure. The patient's thoracolumbar spine was prepped and draped with chlorhexidine and draped in the usual sterile fashion. There was no IV sedation required. AP fluoroscopic imaging was obtained to identify and mayuri the midline positions of the T10 through L2 spinous processes. Skin was anesthetized with 10 mL of lidocaine 1% on each side prior to the introduction of 14-gauge 4-inch Tuohy needles. Skin entry site on the right was at the approximate level of the L1 vertebral body. Needle was advanced using a paramedian approach to the right of midline at approximately 45 degree angle. Loss of resistance to air was utilized to verify placement within the epidural space. Epidural space entered at the T12-L1 interspace. Lateral fluoroscopic view was obtained to confirm the position of the tip of the Tuohy needle within the epidural space. Aspiration noted to be negative for heme or cerebrospinal fluid. The patient did not complain of pain or paresthesias during needle placement. The spinal cord stimulating lead was then advanced through the Tuohy needle under direct visualization within the midline. The tip of the stimulating lead was aligned with the mid position of the T8 vertebral body and located within the midline. The second 14-gauge 2-inch needle entry on the left side was initiated with the skin entry site at the approximate level of the L1 vertebral body. Needle was advanced using a left paramedian approach at approximately 45 degree angle. Loss of resistance to air was utilized to verify placement within the epidural space. Epidural space entered at the T12-L1 interspace. Lateral fluoroscopic view was obtained to confirm the position of the Tuohy needle within the epidural space. Aspiration noted to be negative for heme or cerebrospinal fluid. The patient did not complain of paresthesias during the needle placement. The spinal cord stimulating lead was then advanced through the Tuohy needle under direct visualization within the midline. The tip of the stimulating lead was aligned with the inferior endplate of T8 vertebral body and located directly in midline. At this point, temporary extensions were then connected to the stimulating leads. The stylets were then removed from the leads followed by the Tuohy needles. The position of the leads was checked both in AP and lateral to confirm that they have not moved since placement. The stimulating leads were then anchored to the patient's back with benzoin, Steri-Strips and OpSite bandaging. The patient was then placed in a seated position and multiple maneuvers were performed to reposition the leads with movement. The patient was then placed back in a prone position and AP imaging was obtained to confirm position of the leads for programming. [address] [address] PAIN MANAGEMENT CONSULTATION Name: KIM JIMENEZ Room #: REG [facility]#: [id number] Admission: 06/11/19 Attend Phys: Hawk Otoole DO Discharge: Date of : 47 Report #: [id number] The patient tolerated procedure well, carefully escorted to recovery room in stable condition. We spent over 30 minutes of time preparing the patient for the trial implantation discussing the use of the device. We also warned of finding any concerning issues to contact the on-call pain physician. Otherwise, she will be contacting the Nevro device benefits representative in regards to capture of pain, if she is experiencing increased fever, chills, night sweats, increased pain in the back or headache, she is to contact the on-call pain physician. Otherwise, all calls will be directed towards the Nevro device benefits representative. We will see the patient back in followup visit in 1 week for explantation of the device and determine efficacy to move forward. <ELECTRONICALLY SIGNED> By: Hawk Otoole DO 06/11/19 [id number] Hawk Otoole DO /nt
== END ==
LOC: PAIN 06:34
DX: M51.16 Intervertebral disc disorders with radiculopathy, lumbar region (principal); M47.27 Other spondylosis with radiculopathy, lumbosacral region; G89.29 Other chronic pain; F17.210 Nicotine dependence, cigarettes, uncomplicated; Z88.8 Allergy status to other drugs, medicaments and biological substances; Z79.899 Other long term (current) drug therapy; Z79.82 Long term (current) use of aspirin; Z79.4 Long term (current) use of insulin

== ENCOUNTER → 2019-06-18 | Outpatient (CLI) | payer OTHER, BC ==
[~2019-06-18] VITALS: Ht 170.2 cm; Wt 83.7 kg
[2019-06-18 08:19] VITALS: BP 148/79
--- NOTE | 2019-06-18 08:27 | NUR ---
Pain Clinic Assessment: 1. History of Osteoarthritis: B/L HANDS B/L KNEES B/L FEET SPINE History of Rheumatoid Arthritis: DENIES 2. Height: 5 ft. 7 in. 170.2 cm. Weight: 184.6 lb. oz. 83.734 kg. Patient's BMI: 28.9 3. Vital Signs: BP: 148/79 Pulse: 94 Resp: 16 Temp: 02 Sat: 97 ECG Mon: 4. Pain Intensity: 8 5. Fall Risk: Dizziness: N Needs help standing or walking: N Fallen in the last 3 months: N Fall risk comments: FELL A FEW WEEKS AGO-R/T DIZZINESS. DOESN'T FALL WHEN USES CANE. 6. Patient on Blood Thinner: None 7. History of Hypertension: Y 8. Opioid Therapy greater than 6 weeks: Y Opiate Contract Signed: 12/16/15 9. Risk Assessment Tool Provided: LOW RISK 0 10. Functional Assessment Tool: 37/ 11. Recreational Drug Use: Never Drug Type: Tobacco Use: Current Every Day Smoker Tobacco Type: Cigarettes Amount or Packs/day: 1 How Many Years: 20 Alcohol Use: No Frequency: Quant:
--- NOTE | 2019-06-18 12:14 | HPC ---
[facility] [address] [place] [address] PAIN MANAGEMENT CONSULTATION Name: KIM JIMENEZ Room #: REG [facility]..#: [id number] Admission: 06/18/19 Attend Phys: Hawk Otoole DO Discharge: Date of : 49 Report #: [id number] THIS REPORT FOR: //name// CC: Hwak Hyde MD DATE OF SERVICE: 06/18/2019 CHIEF COMPLAINT: Low back pain, bilateral lower extremity pain, left greater than right. HISTORY OF PRESENT ILLNESS: As you know, the patient is a 73-year-old female returning in followup visit having undergone spinal cord stimulator trial implantation over the last week. Unfortunately, the patient did not note significant pain improvement. She reports pain improvement of about 15-20% well below the recommended levels of 70-80% improvement to move on with permanent implant. She returns today in followup visit to explant the leads and to discuss other treatment options as this is not a viable alternative for the patient. She denies new injury, new trauma, or any changes in medical history since her last visit. She is placing her pain score at 8/10. ALLERGIES: LISINOPRIL AND ORPHENADRINE. CURRENT MEDICATIONS: Percocet, nortriptyline, gabapentin, insulin, meloxicam, losartan, levothyroxine, atorvastatin, VESIcare, Lantus, sertraline, metformin, amlodipine and aspirin. SOCIAL HISTORY: The patient smokes 1 pack tobacco per day, has done so for years. Denies IV or illicit drug use. Denies any chronic alcohol use. She is accompanied by her who is in the waiting room today. IMAGING: No new imaging available. PQRS: The patient has known arthritic changes of the lumbar spine, bilateral hands, bilateral knees, bilateral hips, and feet. No rheumatoid arthritis. She is placing her pain intensity at 8/10. She is not a fall risk, has not had a fall in last 3 months, though she does use a cane for balance and ambulation secondary to some dizziness. She is not on blood thinners, but is treated for hypertension. She is on chronic opioids and has a low opioid addiction potential based on our assessment tool. Pain impact score 37/70, moderate interference of daily activities secondary to pain. PHYSICAL EXAMINATION: VITAL SIGNS: Blood pressure 140/79, pulse 94, respiratory rate 16 and unlabored. The patient is 97% on room air. Height 5 feet 7 inches tall, weight [facility] [address] [place] [address] PAIN MANAGEMENT CONSULTATION Name: KIM JIMENEZ [facility] [id number] Admission: 06/18/19 Attend Phys: Hawk Otoole DO Discharge: Date of : 47 Report #: [id number] 184.6 pounds, BMI calculated 28.9. GENERAL: Well-developed, well-nourished, well-hydrated, 73-year-old female appearing stated age, pain is rated today at 8/10. HEENT: Normocephalic, atraumatic. Pupils are equal, round, reactive to light. Speech is fluent. EXTREMITIES: Show no clubbing, no cyanosis, and no edema. MUSCULOSKELETAL: Lower extremity strength remains symmetrical 5/5, intact to light touch from L1 through S2 dermatomes. Seated straight leg raising negative. Supine straight leg raising positive on the left at approximately 70-degree angle. Ankle clonus negative. Babinski is negative. There is pain elicited with lumbar provocation of the lumbar spine with extension, rotation, and lateral flexion. ASSESSMENT: 1. Symptomatic lumbar radiculopathy. 2. Displacement of lumbar intervertebral disk with radiculopathy. 3. Lumbosacral spondylosis with radiculopathy. 4. Lumbar degeneration. 5. Opioid dependency. 6. Chronic intractable pain. PLAN: 1. The patient returns today in followup visit and unfortunately noticing only 15-20% improvement in overall pain with the spinal cord stimulator trial. This does not meet the criteria of 70-80% improvement that we would recommend moving forward with permanent implant. The patient is pleased that she gave the spinal cord stimulator a trial, but unfortunately, it is not going to work for her ongoing pain issues. We recommend the following potential treatment options as a spinal cord stimulator is now a nonviable alternative treatment. 2. We discussed adjustments in medication management, though the patient has trialed multiple medications and is on high dose opioid medication, which limits our treatment options. We discussed possible new medications that are coming in the very near future to address ongoing pain, though these are not available currently and we do not have a timeframe in which they will be approved. We also discussed unfortunately the surgical options, which may be necessary. After reviewing all the risks and benefits of treatment options and understanding the spinal cord stimulator was not beneficial for her pain, she chose to move forward with surgical options. 3. The patient will be sent for MRI of the lumbar spine without contrast. This will be required before the patient was seen by Neurosurgery to discuss her treatment options. Previous MRI was done in October and is too far in the past to be accepted by the Neurosurgery team and she will require MRIs to be within a 6-week period of time. We will send the patient for MRI of the lumbar spine without contrast. Once the patient is undergoing the procedure, we will review the findings and discuss this with the patient if she wishes. 4. The patient does have medications present and does not need refills of her [facility] [address] [place] [address] PAIN MANAGEMENT CONSULTATION Name: KIM JIMENEZ Room #: REG [facility].#: [id number] Admission: 06/18/19 Attend Phys: Hawk Otoole DO Discharge: Date of : 49 Report #: [id number] current opioid and neuropathic pain medications. We recommend she continue these therapies. 5. We will see the patient back in followup visit on an as needed basis for possible adjustments in medication management. She will contact the clinic when she undergoes the MRI, so that we can review those findings and provide a referral to Neurosurgery. PROCEDURE NOTE DESCRIPTION OF PROCEDURE: Explantation of the spinal cord stimulating leads. After obtaining consent, we had the patient placed in a seated position. We removed all the OpSite bandaging and Steri-Strips. There were 2 spinal cord stimul[address] leads in place. There was no erythema, drainage around the insertion sites. The leads were removed without complications. The leads had all 8 electrodes and the tips attached. Sterile bandages were placed over these injection sites. I advised the patient not to get the area wet for the next 24 hours. Again, there was no erythema, drainage, or any concern of infection based on the findings today, but I have advised the patient to watch for this in the future. If she has any questions or concerns, contact our clinic. She tolerated the explantation without complications. <ELECTRONICALLY SIGNED> By: Hawk Otoole DO 06/18/19 1214 [id number] 1022 Hawk Otoole DO /nt
== END ==
LOC: PAIN 08:01
DX: M47.27 Other spondylosis with radiculopathy, lumbosacral region (principal); M51.16 Intervertebral disc disorders with radiculopathy, lumbar region; F11.20 Opioid dependence, uncomplicated; G89.4 Chronic pain syndrome

== ENCOUNTER → 2019-06-28 | Outpatient (CLI) | payer OTHER, BC | LOC: MRI 09:07 | DX: M43.16 Spondylolisthesis, lumbar region (principal); M47.26 Other spondylosis with radiculopathy, lumbar region; M48.061 Spinal stenosis, lumbar region without neurogenic claudication; M51.16 Intervertebral disc disorders with radiculopathy, lumbar region; M47.817 Spondylosis without myelopathy or radiculopathy, lumbosacral region ==

== ENCOUNTER 2019-07-21 09:27 | Emergency (ER) | payer OTHER, BC ==
[~2019-07-21] VITALS: Ht 170.2 cm; Wt 83.9 kg
[2019-07-21] MEDS ORDERED: MOBIC15 MG PO (11:20)
[2019-07-21] MEDS ORDERED: MEDROLDOSEPACK PO (11:20)
[2019-07-21 11:45] VITALS: BP 121/82
== END 2019-07-21 11:50 | disposition home or self-care (01) ==
LOC: ER 09:27
DX: M54.5 Low back pain (principal); F17.210 Nicotine dependence, cigarettes, uncomplicated; Z88.1 Allergy status to other antibiotic agents; Z88.8 Allergy status to other drugs, medicaments and biological substances; Z90.710 Acquired absence of both cervix and uterus

== ENCOUNTER → 2019-07-23 | Outpatient (CLI) | payer OTHER, BC ==
[~2019-07-23] VITALS: Ht 170.2 cm; Wt 81.4 kg
[2019-07-23 11:01] VITALS: BP 144/79
--- NOTE | 2019-07-23 11:28 | NUR ---
Pain Clinic Assessment: 1. History of Osteoarthritis: B/L HANDS B/L KNEES B/L FEET SPINE History of Rheumatoid Arthritis: DENIES 2. Height: 5 ft. 7 in. 170.2 cm. Weight: 179.4 lb. oz. 81.375 kg. Patient's BMI: 28.1 3. Vital Signs: BP: 144/79 Pulse: 100 Resp: 22 Temp: 02 Sat: 96 ECG Mon: 4. Pain Intensity: 10 5. Fall Risk: Dizziness: N Needs help standing or walking: Y Fallen in the last 3 months: N Fall risk comments: FELL A FEW WEEKS AGO-R/T DIZZINESS. DOESN'T FALL WHEN USES CANE. 6. Patient on Blood Thinner: None 7. History of Hypertension: Y 8. Opioid Therapy greater than 6 weeks: Y Opiate Contract Signed: 12/16/15 9. Risk Assessment Tool Provided: LOW RISK 0 10. Functional Assessment Tool: 11. Recreational Drug Use: Never Drug Type: Tobacco Use: Current Every Day Smoker Tobacco Type: Amount or Packs/day: How Many Years: Alcohol Use: No Frequency: Quant:
--- NOTE | 2019-07-24 11:48 | HPC ---
[facility] [address] [place] [address] PAIN MANAGEMENT CONSULTATION Name: KIM JIMENEZ Room #: REG Richard Isabel#: [id number] Admission: 07/23/19 Attend Phys: Hawk Otoole DO Discharge: Date of : 49 Report #: [id number] THIS REPORT FOR: //name// CC: Je Hyde DATE OF SERVICE: 07/23/2019 REFERRING PHYSICIAN: Dr. Je Beth. CHIEF COMPLAINT: Low back pain, right lower extremity pain with paresthesias, chronic left lower extremity pain with paresthesias. HISTORY OF PRESENT ILLNESS: As you know, the patient is a pleasant 73-year-old female, who returns today in followup visit, reporting a pain score of 10/10. She states her pain is chronic and continuous in sensation and describes the pain as numbness, tingling, burning, and electrical in its quality. She states everything exacerbates the symptoms and nothing tends to improve the pain. The patient reports that she recently saw neurosurgery, who advised the patient to trial an epidural injection under fluoroscopic guidance despite the fact that the patient has undergone multiple epidurals in the past without good efficacy. She has been trialled on all the available neuropathic pain medications and the majority of the opioids with either lack of efficacy or side effects she could not tolerate. She also underwent the spinal cord stimulator trial, which she did not do well with. She has been referred back to our clinic to trial an epidural injection. ALLERGIES: LISINOPRIL, ORPHENADRINE. CURRENT MEDICATIONS: Meloxicam, oxycodone, nortriptyline, gabapentin, insulin, CBD oil, losartan, levothyroxine, atorvastatin, VESIcare, sertraline, metformin, amlodipine, and aspirin. SOCIAL HISTORY: The patient smokes 1 pack of tobacco per day and has done so for years. Denies IV or illicit drug use. Denies any chronic alcohol use. She is accompanied by her present in room today. IMAGING: There is no new imaging available. PQRS: The patient has arthritic changes of the lumbar spine, bilateral hands, bilateral knees, and bilateral feet. No rheumatoid arthritis. She is placing pain today at 10/10. She is a fall risk, but has not had a fall in the last 3 months. She is not on blood thinners, but is treated for hypertension. She is on chronic opioids with a low opiate addiction potential. Pain impact score of 37/70, moderate interference of daily activities secondary to pain. [facility] [address] [place] [address] PAIN MANAGEMENT CONSULTATION Name: KIM JIMENEZ Room #: REG [facility].#: [id number] Admission: 07/23/19 Attend Phys: Hawk Otoole DO Discharge: Date of : 47 Report #: [id number] PHYSICAL EXAMINATION: VITAL SIGNS: Blood pressure 144/79, pulse 100, and respiratory rate 22 and unlabored. The patient is 96% on the room air. Height 5 feet and 7 inches tall and weight 179.4 pounds. BMI calculated, 28.1. GENERAL: Well-developed, well-nourished, and well-hydrated 73-year-old female appearing stated age. Pain is rated today 10/10. HEENT: Normocephalic and atraumatic. Pupils are equal, round, and reactive to light. EXTREMITIES: Show no clubbing, no cyanosis, and no edema. MUSCULOSKELETAL: Lower extremity strength remains symmetrical, 5/5. Intact to light touch from L1 through S2 dermatomes. Seated straight leg raising is negative. Supine straight leg raising is now positive on the right. Cherise's test is negative. Modified Gaenslen's is positive for axial low back pain. Gait, antalgic, favoring right lower extremity over left. ASSESSMENT: 1. Symptomatic lumbar radiculopathy. 2. 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 3. Lumbosacral spondylosis with radiculopathy. 4. Lumbar degeneration. 5. Opioid dependency. 6. Chronic intractable pain. PLAN: 1. The patient returns today in followup visit per the request of her neurosurgeon to undergo a lumbar epidural injection under a fluoroscopic guidance. The patient and I discussed the lack of efficacy of the epidural injections provided in the past. She wishes to trial the next in this series in the hopes of improving pain, but understands that given the lack of efficacy in the past that this will likely provide only a transient improvement. We are hopeful the patient will see good and prolonged benefit with today's procedure and she does wish to proceed. 2. We have provided the patient with a refill of her oxycodone 10/325 mg tab, for which, she takes 5 a day. The patient and I had discussed at length that the escalation of this medication is not indicated. I understand the patient is experiencing pain at a level of 10/10, the opioids do not show a good efficacy in the long-term treatment of neuropathic pain and we would not recommend further escalation. We did discuss neuropathic medications, but as indicated in the history of present illness, she has been on every available neuropathic medication and failed either due to side effects or lack of efficacy. This limits our capability of treating the patient with medications. The patient was given this prescription of oxycodone in written form today. 3. We will see the patient back in followup visit on an as needed basis for possible next in the series of epidural injections. We are hopeful the patient will see a good and prolonged benefit with the epidural injection. [address] [address] PAIN MANAGEMENT CONSULTATION Name: KIM JIMENEZ MING Room #: REG JAYLIN Hall#: [id number] Admission: 07/23/19 Attend Phys: Hawk Otoole DO Discharge: Date of : 47 Report #: [id number] PROCEDURE NOTE: DESCRIPTION OF PROCEDURE: L3-L4 RIGHT PARASAGITTAL EPIDURAL STEROID INJECTION UNDER FLUOROSCOPIC GUIDANCE: After obtaining the written consent, the patient was taken back to fluoroscopy suite, placed in a prone position with pillow under the abdomen to decrease lumbar lordosis. Skin overlying the lumbosacral area was then prepped and draped in an aseptic fashion. The L3-L4 vertebral interspace was identified by AP fluoroscopy. Skin and subcutaneous tissue overlying the target site of injection was anesthetized with 3 mL of 1% lidocaine. A 20-gauge, 3-1/2 inch Tuohy needle was advanced under a fluoroscopic guidance towards the epidural space using a right parasagittal approach. The epidural space was identified using the loss of resistance to air technique. After a negative aspiration for heme or cerebrospinal fluid, 1 mL of Omnipaque was injected. A lumbar epidurogram was confirmed using both AP and lateral fluoroscopy. After negative aspiration for a heme or cerebrospinal fluid, 5 mL of a solution containing 2 mL, 40 mg per mL, 80 mg total triamcinolone along with 3 mL of lidocaine 1% injected slowly. Needle was retracted the half-way, flushed with 1 mL of 1% lidocaine, and then removed. Sterile bandage was placed over the injection site. There were no new motor deficits present in the lower extremities following the procedure. The patient tolerated the procedure well and carefully escorted to recovery room in stable condition. No apparent complications. After meeting discharge criteria, the patient was discharged home. <ELECTRONICALLY SIGNED> By: Hawk Otoole DO 07/24/19 1148 1344 19 Hawk Otoole DO /nt
== END | disposition home or self-care (01) ==
LOC: PAIN 09:31
DX: M51.16 Intervertebral disc disorders with radiculopathy, lumbar region (principal); M47.27 Other spondylosis with radiculopathy, lumbosacral region; G89.29 Other chronic pain; I10 Essential (primary) hypertension; M19.90 Unspecified osteoarthritis, unspecified site; F11.20 Opioid dependence, uncomplicated; Z98.890 Other specified postprocedural states; Z88.8 Allergy status to other drugs, medicaments and biological substances; Z79.899 Other long term (current) drug therapy

== ENCOUNTER → 2019-08-20 | Outpatient (CLI) | payer OTHER, BC ==
[~2019-08-20] VITALS: Ht 170.2 cm; Wt 79.5 kg
[~2019-08-20] MED LIST changes: +OXYCODONE-ACET1 EAC2 PO
[2019-08-20 09:49] VITALS: BP 150/80
--- NOTE | 2019-08-20 10:08 | NUR ---
Pain Clinic Assessment: 1. History of Osteoarthritis: B/L HANDS B/L KNEES B/L FEET SPINE History of Rheumatoid Arthritis: DENIES 2. Height: 5 ft. 7 in. 170.2 cm. Weight: 175.2 lb. oz. 79.470 kg. Patient's BMI: 27.4 3. Vital Signs: BP: 150/80 Pulse: 105 Resp: 18 Temp: 02 Sat: 96 ECG Mon: 4. Pain Intensity: 10 5. Fall Risk: Dizziness: N Needs help standing or walking: Y Fallen in the last 3 months: Y Fall risk comments: FELL A FEW WEEKS AGO-R/T DIZZINESS. DOESN'T FALL WHEN USES CANE. 6. Patient on Blood Thinner: None 7. History of Hypertension: Y 8. Opioid Therapy greater than 6 weeks: Y Opiate Contract Signed: 12/16/15 9. Risk Assessment Tool Provided: LOW RISK 0 10. Functional Assessment Tool: 11. Recreational Drug Use: Never Drug Type: Tobacco Use: Current Every Day Smoker Tobacco Type: Cigarettes Amount or Packs/day: 1 How Many Years: 20 Alcohol Use: No Frequency: Quant:
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
== END ==
LOC: PAIN 06:49
DX: M51.16 Intervertebral disc disorders with radiculopathy, lumbar region (principal); G89.4 Chronic pain syndrome; Z79.891 Long term (current) use of opiate analgesic; Z79.899 Other long term (current) drug therapy; Z88.8 Allergy status to other drugs, medicaments and biological substances

== ENCOUNTER → 2019-09-17 | Outpatient (CLI) | payer OTHER, BC ==
[~2019-09-17] VITALS: Ht 160 cm; Wt 78.9 kg
[2019-09-17 12:49] VITALS: BP 132/90
--- NOTE | 2019-09-17 12:56 | NUR ---
Pain Clinic Assessment: 1. History of Osteoarthritis: B/L HANDS B/L KNEES B/L FEET SPINE History of Rheumatoid Arthritis: DENIES 2. Height: 5 ft. 3 in. 160.0 cm. Weight: 174.0 lb. oz. 78.926 kg. Patient's BMI: 30.8 3. Vital Signs: BP: 132/90 Pulse: 103 Resp: 18 Temp: 02 Sat: 94 ECG Mon: 4. Pain Intensity: 8 5. Fall Risk: Dizziness: N Needs help standing or walking: N Fallen in the last 3 months: Y Fall risk comments: FELL A FEW WEEKS AGO-R/T DIZZINESS. DOESN'T FALL WHEN USES CANE. 6. Patient on Blood Thinner: None 7. History of Hypertension: Y 8. Opioid Therapy greater than 6 weeks: Y Opiate Contract Signed: 12/16/15 9. Risk Assessment Tool Provided: LOW RISK 0 10. Functional Assessment Tool: 37/ 11. Recreational Drug Use: Never Drug Type: Tobacco Use: Current Every Day Smoker Tobacco Type: Amount or Packs/day: How Many Years: Alcohol Use: No Frequency: Quant:
--- NOTE | 2019-09-19 14:58 | HPC ---
[facility] [address] [place] [address] PAIN MANAGEMENT CONSULTATION Name: KIM JIMENEZ Room #: REG JAYLIN Hall#: [id number] Admission: 09/17/19 Attend Phys: Neela Hill Discharge: Date of : 47 Report #: [id number] THIS REPORT FOR: cc: Aster Hyde MD, Sharon R. MD Hocker,Neela POWERS ~ DATE OF SERVICE: 09/17/2019 CHIEF COMPLAINT: Low back pain, bilateral lower extremity pain and paresthesias. HISTORY OF PRESENT ILLNESS: This is a very pleasant, anxious 74-year-old female who returns to the pain clinic today to discuss her medications. She is here present with her son. She is reporting: A pain score of 8/10. She reports she is taking more pain pills than prescribed on a daily basis. She is stating that her pain is most significant in her lower back, right hip and leg. It is a shooting, constant deep ache, worse with standing and activity. She feels that resting, sitting is the only thing that relieves her pain. She is here today to discuss her pain medications and requesting an increase. The patient does report that she continues to be moving out of her house into an apartment. She has not sold her existing house. Her family is here helping her go through the belongings. Her is also in a rehab facility and she has learned that he will not be coming home, he will be transferred to a long-term care facility once he leaves rehabilitation. She has lots of changes going on in her life with this and also her health. She was told by the neurosurgeon at , she needs to have quit smoking and have her A1c under control before he will perform back surgery. The patient is now taking insulin and has a subcutaneous blood glucose reader and has an appointment with her bottom stop attacher tomorrow due to the new medications and her pump not working. ALLERGIES: LISINOPRIL AND ORPHENADRINE. CURRENT LIST OF MEDICATIONS: Oxycodone 10/325 five a day, nortriptyline 75 mg, gabapentin 900 mg 3 times a day, NovoLog, Luminas, CBD oil, losartan, levothyroxine, Lipitor, VESIcare, Lantus, sertraline, metformin, amlodipine and aspirin. PQRS: 1. She has arthritic changes in her lumbar spine, hands, knees and feet. Denies rheumatoid arthritis. 2. Height is 5 feet 3 inches, weight is 174, BMI is 30. 3. Vital signs 132/90, pulse is 103, respirations 18, oxygen sat is 94. 4. Pain score is 8/10. 5. Denies dizziness. Does use a walker for ambulation, has fallen in the last [facility] [address] [place] [address] PAIN MANAGEMENT CONSULTATION Name: KIM JIMENEZ Room #: REG [facility] Hall#: [id number] Admission: 09/17/19 Attend Phys: Neela Hill Discharge: Date of : 47 Report #: [id number] 3 months. 6. The patient is not on any blood thinners, but does take medicine for hypertension. Her opioid therapy is greater than 6 weeks; therefore, an opioid signed contract is on the chart. 7. Risk assessment tool is low. Functional assessment is 37/70. 8. Recreational drug use, she denies. She is a current smoker of 10 cigarettes a day and does not drink alcohol. According to the prescription monitoring system, the patient last filled her opioids on 09/02/2019, not due to fill her medications until the of this month. Per her report, she has about a week's worth of medicine left. Her morphine milliequivalent per day is 75. PHYSICAL EXAMINATION: GENERAL: This is alert and orientated, well-nourished, well-hydrated, anxious 74-year-old female who appears her stated age, placing her current pain score at 8/10. HEENT: Normocephalic, atraumatic. Extraocular eye muscles are intact. Mucous membranes are moist. EXTREMITIES: No clubbing, no cyanosis, no edema. MUSCULOSKELETAL: She has pain across her lumbar spine that radiates into her right leg. Her lower extremity strength is symmetrical at 5/5 and intact to light touch from L1-S2. Seated straight leg raising is positive. Her gait is antalgic favoring her right lower extremity over the left. ASSESSMENT: 1. Symptomatic lumbar radiculopathy. 2. Displacement of lumbar intervertebral disk with radiculopathy. 3. Lumbosacral spondylosis with radiculopathy. 4. Lumbar depression. 5. Opioid dependency and misuse. 6. Chronic intractable pain. 7. Type 2 diabetic, recently started insulin therapy. We reviewed the fact that opiate medications are being used to provide analgesia adequate to support activities of daily living, not attempting to achieve a specific pain score on the 0-10 Visual Analog Scale. The current opiate medications are providing sufficient analgesia to allow the patient to participate in activities of daily living. The patient is not exhibiting any aberrant behavior suggestive of drug diversion. The patient is not having any adverse reactions to medications. The patient is not suffering from daytime somnolence or mental acuity changes. The patient is managing opiate-induced constipation with appropriate egrr-gnv-fnlvova agents and dietary considerations. The patient was counseled on concern for caution with operating a motor vehicle while using opiate medications. [facility] [address] [place] [address] PAIN MANAGEMENT CONSULTATION Name: KIM JIMENEZ [id number]: 09/17/19 Attend Phys: Neela Hill Discharge: Date of : 49 Report #: [id number] PLAN: 1. We discussed treatment options with the patient today. I explained to the patient that she is allowed 5 opioid tablets a day. The patient needs to have her medicine last 30 days. We discussed supplementing with extra strength Tylenol, no more than 3 tablets per day, along with her five oxycodone 10/325. The patient verbalizes understanding as well as the son who is here present today. The patient is able to fill her medicine on 09/30/2019. She has a prescription at the pharmacy that they will fill on that day. They will go home and count her medications and adjust as needed with her daily dose. 2. The patient is recently started on Humalog and Lantus insulin as well as her oral hypoglycemic medications. She has a subcutaneous monitor to read her glucose that is not working currently. I encouraged the patient not to take any additional insulin until she knows what her levels are currently reading. The patient states she has no fingersticks at home, seeing the bottom stop attacher tomorrow morning, so they will await his directions, but not take any insulin before then. 3. We discussed smoking cessation. According to the [facility] neurosurgeon's, they want her to stop prior to surgery. She currently smokes 10 cigarettes a day. I encouraged her to quit cold turkey, but the patient reports she is unable to do that. We discussed nicotine gum or patches and decreasing 1 cigarette every 5 days until she is off. We discussed how this will be beneficial in helping reduce some of her pain as well. 4. The son was here for this discussion verbalizes understanding. He did take notes to give the other family members. The patient verbalizes understanding it well. No scripts given today. She again has a Percocet at the pharmacy and she has plenty of refills of gabapentin and nortriptyline as well. The patient is seen today in collaboration with Dr. Hawk Otoole. <ELECTRONICALLY SIGNED> By: Neela Hill 09/19/19 1458 [id number] Neela Hill /vandana
== END ==
LOC: PAIN 06:53
DX: M51.16 Intervertebral disc disorders with radiculopathy, lumbar region (principal); M53.86 Other specified dorsopathies, lumbar region; G89.29 Other chronic pain; E11.9 Type 2 diabetes mellitus without complications; Z88.8 Allergy status to other drugs, medicaments and biological substances; Z68.30 Body mass index [BMI] 30.0-30.9, adult; Z79.899 Other long term (current) drug therapy

== ENCOUNTER → 2019-11-20 | Outpatient (CLI) | payer OTHER, BC ==
[~2019-11-20] VITALS: Ht 160 cm; Wt 77.6 kg
[~2019-11-20] MED LIST changes: +MELOXICAM7.5 MG PO; +NEURONTIN 300M300 M2 PO
[2019-11-20 12:33] VITALS: BP 110/74
--- NOTE | 2019-11-20 12:41 | NUR ---
Pain Clinic Assessment: 1. History of Osteoarthritis: B/L HANDS B/L KNEES B/L FEET SPINE History of Rheumatoid Arthritis: DENIES 2. Height: 5 ft. 3 in. 160.0 cm. Weight: 171.0 lb. oz. 77.565 kg. Patient's BMI: 30.3 3. Vital Signs: BP: 110/74 Pulse: 112 Resp: 20 Temp: 02 Sat: 96 ECG Mon: 4. Pain Intensity: 7 5. Fall Risk: Dizziness: N Needs help standing or walking: Y Fallen in the last 3 months: Y Fall risk comments: FELL A FEW WEEKS AGO-R/T DIZZINESS. DOESN'T FALL WHEN USES CANE. 6. Patient on Blood Thinner: None 7. History of Hypertension: Y 8. Opioid Therapy greater than 6 weeks: Y Opiate Contract Signed: 12/16/15 9. Risk Assessment Tool Provided: LOW RISK 0 10. Functional Assessment Tool: 37/ 11. Recreational Drug Use: Never Drug Type: Tobacco Use: Current Every Day Smoker Tobacco Type: Cigarettes Amount or Packs/day: 1 How Many Years: 30 Alcohol Use: No Frequency: Quant:
--- NOTE | 2019-11-20 15:46 | HPC ---
[facility] [address] [place] [address] PAIN MANAGEMENT CONSULTATION Name: KIM JIMENEZ Room #: REG JAYILN Isabel#: [id number] Admission: 11/20/19 Attend Phys: Neela Hill Discharge: Date of : 49 Report #: [id number] THIS REPORT FOR: cc: Aster Hyde MD, Sharon R. MD Hocker,Neela POWERS ~ CC: Hawk Otoole DO DATE OF SERVICE: 11/20/2019 CHIEF COMPLAINT: Low back pain, bilateral lower extremity pain and paresthesias. HISTORY OF PRESENT ILLNESS: As you know, this is a very pleasant and anxious 74-year-old female who returns to the pain clinic today for refill of her opioid medications. Today, she is reporting a pain score 7/10. She feels that her low back and right leg pain is getting worse. She reports at times she cannot walk without significant pain. She feels like her right leg is going to give out though she has not fallen. She reports it is a shooting, aching pain, most specifically when she walks and stands. She feels that the medication has been beneficial, but she feels that it is not quite enough to last her throughout the day. She denies problems with constipation or daytime sleepiness as a result of her medications. The patient continues to have moving issues. She has moved into an apartment, but not sold her existing house. They are needing to have an estate sell which they are unable to do due to the COVID outbreak. Also, her is in a long-term care facility and she is not able to see him during this pandemic. This is causing much stress and anxiety for her. She continues to smoke due to this reason per her report, which is a requirement from her surgeon, so she is able to have surgery. The patient has not yet have a surgical date set. She does report her A1c has decreased, which is one of the other requirements from her surgeon prior to setting a date for surgery. ALLERGIES: LISINOPRIL AND ORPHENADRINE. CURRENT MEDICATIONS: Meloxicam 7.5, oxycodone 10/325 five pills a day, nortriptyline 75 mg, gabapentin 900 mg t.i.d., NovoLog Luminas, Cozaar, Synthroid, Lipitor, VESIcare, Lantus, sertraline, metformin, amlodipine, and aspirin. PQRS: 1. She has arthritic changes in her hands, lumbar spine, knees and feet. Denies rheumatoid arthritis. [address] [address] PAIN MANAGEMENT CONSULTATION Name: KIM JIMENEZ Room #: REG [facility].#: [id number] Admission: 11/20/19 Attend Phys: Neela Hill Discharge: Date of : 49 Report #: [id number] 2. Height is 5 feet 3 inches, weight is 171, BMI is 30. 3. Vital signs 110/74, pulse is 112, respirations 20, oxygen sat is 96. 4. Pain score 7/10. 5. Denies dizziness. Does need help with ambulation. She is using a walker at all times. Has fallen in the last 3 months. 6. The patient is not on any blood thinners, but does take medicine for hypertension. 7. Opioid therapy is greater than 6 weeks; therefore, an opioid signed contract is on the chart. Risk assessment tool is low. Functional assessment is 37/70. 8. Recreational drug use, she denies. She currently smokes at least 10 cigarettes a day and does not drink alcohol. According to the prescription monitoring system, the patient is filling appropriately. She is due to fill her medications this weekend. Her current morphine mEq is 75 MME per day according to the CDC guidelines. PHYSICAL EXAMINATION: GENERAL: This is alert and orientated, well-developed, well-nourished, very anxious 74-year-old female who appears her stated age, placing her current pain score at 7/10. HEENT: Normocephalic, atraumatic. Extraocular eye muscles are intact. She is wearing a mask and glasses. EXTREMITIES: No clubbing, no cyanosis, no edema. Does have itching, pruritus present in her right upper extremity. MUSCULOSKELETAL: Pain in the lumbar spine that radiates into her right leg. Her pain follows the L4-L5 and L5-S1 dermatomal distribution on the right. Seated straight leg raising is positive. She has an antalgic gait favoring the right lower extremity over the left. She uses a walker at all times. Her lower extremity strength judged to be 4/5 on the right and 5/5 on the left. Intact sensation from L1-S2. ASSESSMENT: 1. Symptomatic lumbar radiculopathy. 2. Displacement of lumbar intervertebral disk with radiculopathy. 3. Lumbosacral spondylosis with radiculopathy. 4. Lumbar decompression. 5. Opioid dependency and misuse. 6. Type 2 diabetic. 7. Tobacco habituation. We reviewed the fact that opiate medications are being used to provide analgesia adequate to support activities of daily living, not attempting to achieve a specific pain score on the 0-10 Visual Analog Scale. The current opiate medications are providing sufficient analgesia to allow the patient to participate in activities of daily living. The patient is not exhibiting any aberrant behavior suggestive of drug diversion. The patient is not having any [facility] [address] [place] [address] PAIN MANAGEMENT CONSULTATION Name: KIM JIMENEZ Room #: REG CL M.Mally.#: [id number] Admission: 11/20/19 Attend Phys: Neela GIO Hill Discharge: Date of : 49 Report #: [id number] adverse reactions to medications. The patient is not suffering from daytime somnolence or mental acuity changes. The patient is managing opiate-induced constipation with appropriate [id number] agents and dietary considerations. The patient was counseled on concern for caution with operating a motor vehicle while using opiate medications. A physical exam was performed and the patient's functional status was evaluated. All patients with back pain were advised against the bed rest greater than 4 days and were advised to return to normal activities. Pain score assessment was noted and the treatment plan was reviewed with the patient. All current medications, both prescribed and OTC were reviewed and reconciled on the electronic medical record. Tobacco screening was accomplished and smoking cessation was advised when indicated. BMI was noted and diet/exercise modification was recommended for all patients following outside normal parameters. I reviewed with the patient today their responsibilities to safeguard prescription medications, reviewed their responsibility to utilize medications only as prescribed by the physician. They are to seek and receive pain medications only from 1 physician group ([facility]). They are to use 1 pharmacy and keep the clinic informed if they change pharmacies. Their responsibilities include making followup visits in a timely fashion and to avoid abrupt discontinuation of medication usage. Their responsibilities further include bringing their medications (bottles from the pharmacy with residual pills) to the visit for possible confirmation of pill counts and the patient understands it is their responsibility to submit to random drug screens to ensure both that the medications prescribed are present, and that no other controlled substances are present. All prescriptions provided today were generated electronically. PLAN: 1. We discussed treatment options with the patient today. The patient continues to having increased pain and right lower leg weakness. Encouraged the patient to call her surgeon to see if she is able to have a date for her surgery since they have restarted doing surgery since the COVID pandemic. Patient's A1c has decreased, though she does continue to smoke, which were the two criteria the surgeon was requiring, but I believe with her decreased functioning, he may try to set a surgery date for her. Family member verbalized that they will call. 2. We will refill her medications today of oxycodone 10/325 #150 for today and 4 weeks supply. Nortriptyline 75 mg at bedtime, #30 with 2 additional refills and gabapentin 300 mg tablets 3 times a day, #270 with 2 additional refills. These will all be sent electronically to her pharmacy. 3. We did discuss smoking cessation again. Explained to the patient that ultimately it is her responsibility to quit smoking, so she may have her surgery. We had discussed a plan at her last visit to try and decrease her [address] [address] PAIN MANAGEMENT CONSULTATION Name: KIM JIMENEZ Room #: REG JAYLIN Hall#: [id number] Admission: 11/20/19 Attend Phys: Neela Hill Discharge: Date of : 49 Report #: [id number] smoking. Thus she has chosen not to follow this plan due to increased stress at home. Again, we talked in length about smoking cessation. 4. The patient is seen in collaboration with Dr. Hawk Otoole. The patient will return in 3 months if she does have surgery prior to her next refill. I encouraged to have her surgeon write her opioid medications during her postop period, but to call and notify our office and then we will resume after her postop period for her medications. <ELECTRONICALLY SIGNED> By: Neela Hill 11/20/19 [id number] [id number] 1500 Neela Hill /nt
== END ==
LOC: PAIN 07:04
DX: M19.90 Unspecified osteoarthritis, unspecified site (principal); Z79.891 Long term (current) use of opiate analgesic; Z79.899 Other long term (current) drug therapy

== ENCOUNTER → 2020-01-14 | Outpatient (CLI) | payer OTHER, BC ==
[~2020-01-14] VITALS: Ht 160 cm; Wt 81.4 kg
--- NOTE | ~2020-01-14 | HPC ---
[address] [address] PAIN MANAGEMENT CONSULTATION Name: KIM JIMENEZ Room #: REG JAYLIN ReynoldsAmos#: [id number] Admission: 01/14/20 Attend Phys: Hawk Otoole DO Discharge: Date of : 49 Report #: [id number] THIS REPORT FOR: cc: Aster Hyde MD,Hawk Du MD, DO ~ CC: Hawk Hyde MD DATE OF SERVICE: 01/14/2020 REFERRING PHYSICIAN: Aster Hyde MD CHIEF COMPLAINT: Low back pain, bilateral lower extremity pain with paresthesias. HISTORY OF PRESENT ILLNESS: As you know, the patient is a very pleasant 74-year-old female with longstanding history of low back pain, bilateral lower extremity pain with paresthesias. [facility] period of time for progressively worsening lumbar radiculopathy. We initially saw the patient ____. We had the patient to undergo epidural injections and other interventional treatments. She has also been provided medication management, all of which have gave analgesic benefit to varying degrees. She sought evaluation recently as epidural injections were becoming less effective with Neurosurgery. She was advised she would have to discontinue smoking before surgical options would be entertained, the patient has been unwilling to do so. She returns today in followup visit requesting adjustments in medication management, stating her pain is not well controlled and she wishes to increase her opioid therapy. She is denying side effects with the therapy including somnolence, decreased mental acuity, disorientation, and confusion. Pain today is rated at around 4/10. ALLERGIES: LISINOPRIL, ORPHENADRINE. CURRENT MEDICATIONS: Meloxicam 7.5 mg b.i.d., Percocet 10/325 one tablet q.4 hours p.r.n. for pain, nortriptyline 75 mg p.o. at bedtime, gabapentin 900 mg t.i.d., NovoLog sliding scale, Cozaar 50 mg once a day, levothyroxine 50 mcg per day, atorvastatin 40 mg per day, VESIcare ____ mg once a day, Lantus 30 units subQ, sertraline 100 mg per day, metformin 500 mg 2 tablets p.o. b.i.d., amlodipine 10 mg per day, and aspirin 81 mg per day. SOCIAL HISTORY: The patient denies alcohol, IV or illicit drug use. Continues to smoke about a pack or greater per day. She is retired, unaccompanied at today's visit. [address] [address] PAIN MANAGEMENT CONSULTATION Name: KIM JIMENEZ Room #: REG CLRichard Hall#: [id number] Admission: 01/14/20 Attend Phys: Hawk Otoole DO Discharge: Date of : 49 Report #: [id number] IMAGING STUDIES: No new imaging available. PQRS: The patient has known arthritic changes of the bilateral hands, bilateral knees, bilateral feet and lumbar spine. No rheumatoid arthritis. She is placing pain intensity 4/10 today. She is at fall risk, but has not had a fall in last 3 months. She is utilizing a roller walker for ambulation. She is not on blood thinners, but is treated for hypertension. She is on chronic opioids and has a low to moderate risk for opioid addiction based on our assessment tool. Pain impact is 37/70, moderate interference of daily activities secondary to pain. PHYSICAL EXAMINATION: VITAL SIGNS: Blood pressure 158/84, pulse is 100, respiratory rate 20 and unlabored, the patient is 97% on room air. Height 5 feet 3 inches tall, weight 179.4 pounds, BMI calculated 31.8. GENERAL: Well-developed, well-nourished, well-hydrated, somewhat anxious 74-year-old female, smells strongly of tobacco smoke, placing current pain score 4/10. HEENT: Normocephalic and atraumatic. Pupils are equal, round and reactive. EXTREMITIES: Show no clubbing, no cyanosis, and no edema. MUSCULOSKELETAL: Palpatory tenderness is noted once again over the paraspinal musculature of lower lumbar spine. No spinous process tenderness. Seated straight leg raising is mildly positive. Supine straight leg raising is positive, more on the right than the left. Muscle bulk and tone appears symmetrical in comparing the lower extremities. She has an antalgic gait favoring the right lower extremity. ASSESSMENT: 1. Symptomatic lumbar radiculopathy. 2. Displacement of lumbar intervertebral disk with radiculopathy. 3. Lumbosacral spondylosis with radiculopathy. 4. Lumbar degeneration. 5. Opioid dependency. 6. Tobacco habituation. 7. Complicated medication management utilizing scheduled medications. PLAN: 1. The patient returns today in followup visit requesting adjustments in medication management. I advised the patient at this time she is on the highest dose of oxycodone available for her ongoing pain issues. There is a limitation of the medication based on CDC's recommended guidelines along with the patient's insurer stating no increase would be recommended. The patient currently takes 50 mg of oxycodone equating to 75 morphine equivalents a day. This is well into the higher range of opioid use. I do not feel comfortable adjusting these medications further. Given the fact that her pain has intensified and opioids are no longer effective, the fact that epidural injections and interventional [facility] [address] [place] [address] PAIN MANAGEMENT CONSULTATION Name: KIM JIMENEZ Room #: REG [facility] Rodolfo.#: [id number] Admission: 01/14/20 Attend Phys: Hawk Otoole DO Discharge: Date of : 49 Report #: [id number] treatments have not been successful in alleviating symptoms, I believe patient should look towards more aggressive options such as surgical options. The patient is considering this option. Adjustments in medication management can be made with her nortriptyline and gabapentin, though the patient does not wish to make adjustments in those medications at this time. 2. The patient and I had a very long discussion about her ongoing smoking issues. This is precluding the patient from moving forward with surgical options. We recommend strongly the patient look to her primary care physician for assistance on coming off of cigarettes. The patient will need to be smoke free and remains smoke free, if she wishes to undergo surgery to address her lumbar radiculopathy based on the patient's report of her surgeon's request. I do feel that her chronic smoking is promoting more intense chronic pain and this has been shown in studies recently, the direct correlation between tobacco habituation and chronic pain exacerbation. There is likelihood the patient's pathology is also increased and thus her symptoms further worsened. The patient needs to consider options in the very near future, if she wishes to address this issue appropriately. 3. We have agreed to continue the patient on the Percocet 10/325 one tablet every 4 to 5 hours p.r.n. for pain. She is provided #150 tablets with releases of today and 4 weeks from today, 2 months' worth of medication. She is provided with 2 months of medication due to the level of opioid that she is taking, she will need to be monitored closely. Prescriptions were provided to the patient via e-scribed. 4. The patient was provided prescription of nortriptyline 75 mg dose 1 tablet p.o. at bedtime. I have given the patient #30 tablets with refills. The patient denies any side effects with its use. 5. The patient was provided refill prescription of gabapentin 300 mg dose. She is to take 3 tablets p.o. t.i.d., total number of 270 tablets were sent to her pharmacy with refills. The patient was advised to confirm the 270 count of tablets before she takes the prescription as there was some trouble with the prescriptions in the past. 5. The patient will follow up with her PCP in regard to smoking cessation assistance. We are hopeful the patient will be smoke free at our next visit. By: [id number] Hawk Otoole DO /nt
[2020-01-14 09:47] VITALS: BP 158/84
--- NOTE | 2020-01-14 10:01 | NUR ---
Pain Clinic Assessment: 1. History of Osteoarthritis: B/L HANDS B/L KNEES B/L FEET SPINE History of Rheumatoid Arthritis: DENIES 2. Height: 5 ft. 3 in. 160.0 cm. Weight: 179.4 lb. oz. 81.375 kg. Patient's BMI: 31.8 3. Vital Signs: BP: 158/84 Pulse: 100 Resp: 20 Temp: 02 Sat: 97 ECG Mon: 4. Pain Intensity: 4 5. Fall Risk: Dizziness: N Needs help standing or walking: Y Fallen in the last 3 months: N Fall risk comments: FELL A FEW WEEKS AGO-R/T DIZZINESS. DOESN'T FALL WHEN USES CANE. 6. Patient on Blood Thinner: None 7. History of Hypertension: Y 8. Opioid Therapy greater than 6 weeks: Y Opiate Contract Signed: 12/16/15 9. Risk Assessment Tool Provided: LOW RISK 0 10. Functional Assessment Tool: 11. Recreational Drug Use: Never Drug Type: Tobacco Use: Current Every Day Smoker Tobacco Type: Amount or Packs/day: 1 PPD How Many Years: Alcohol Use: No Frequency: Quant:
== END ==
LOC: PAIN 06:54
PROVIDERS: ATTEND Anesthesiology Pain Medicine
DX: M51.16 Intervertebral disc disorders with radiculopathy, lumbar region (principal); M54.5 Low back pain; M79.605 Pain in left leg; M79.604 Pain in right leg; R20.2 Paresthesia of skin; M47.27 Other spondylosis with radiculopathy, lumbosacral region; G31.89 Other specified degenerative diseases of nervous system; F11.20 Opioid dependence, uncomplicated; Z88.8 Allergy status to other drugs, medicaments and biological substances

== ENCOUNTER → 2020-03-11 | Outpatient (CLI) | payer OTHER, BC ==
[~2020-03-11] VITALS: Ht 160 cm; Wt 86.2 kg
[2020-03-11 13:08] VITALS: BP 122/64
--- NOTE | 2020-03-11 13:16 | NUR ---
Pain Clinic Assessment: 1. History of Osteoarthritis: B/L HANDS B/L KNEES B/L FEET SPINE History of Rheumatoid Arthritis: DENIES 2. Height: 5 ft. 3 in. 160.0 cm. Weight: 190.0 lb. oz. 86.184 kg. Patient's BMI: 33.7 3. Vital Signs: BP: 122/64 Pulse: 94 Resp: 200 Temp: 02 Sat: 95 ECG Mon: 4. Pain Intensity: 8 W/O MEDS 5. Fall Risk: Dizziness: N Needs help standing or walking: Y Fallen in the last 3 months: N Fall risk comments: FELL A FEW WEEKS AGO-R/T DIZZINESS. DOESN'T FALL WHEN USES CANE. 6. Patient on Blood Thinner: None 7. History of Hypertension: Y 8. Opioid Therapy greater than 6 weeks: Y Opiate Contract Signed: 12/16/15 9. Risk Assessment Tool Provided: LOW RISK 0 10. Functional Assessment Tool: 37 11. Recreational Drug Use: Never Drug Type: Tobacco Use: Current Every Day Smoker Tobacco Type: Cigarettes Amount or Packs/day: 1 How Many Years: Alcohol Use: No Frequency: Quant:
--- NOTE | 2020-03-12 07:30 | HPC ---
[facility] [address] [place] [address] PAIN MANAGEMENT CONSULTATION Name: KIM JIMENEZ Room #: REG JAYLIN Isabel#: [id number] Admission: 03/11/20 Attend Phys: Hawk Otoole DO Discharge: Date of : 49 Report #: [id number] THIS REPORT FOR: cc: Aster Hyde MD, Sharon R. MD Johnson, James E. DO ~ DATE OF SERVICE: 03/11/2020 REFERRING PHYSICIAN: Aster Hyde MD CHIEF COMPLAINT: Low back pain, bilateral lower extremity pain with paresthesias and weakness. HISTORY OF PRESENT ILLNESS: As you know, the patient is a very pleasant 74-year-old female with longstanding history of low back pain, bilateral lower extremity pain with paresthesias. The patient is now beginning to experience increasing weakness in the lower extremities. She reports pain today at a level of 8/10 without medications, 2-3/10 with medications. She states she is having more difficulty with ambulation secondary to weakness in the lumbar spine and lower extremities. She has sought evaluation through Neurosurgery and they have advised surgery may be necessary. At present, she wishes to continue medication management. She returns today in followup visit to discuss continuation of treatment at current dosing as she awaits her 's recovery from her recent abdominal surgery. ALLERGIES: LISINOPRIL, ORPHENADRINE. CURRENT MEDICATIONS: Nortriptyline 75 mg p.o. at bedtime, oxycodone 10/325 one tab p.o. q. 4 hours p.r.n. for pain, gabapentin 900 mg t.i.d., Meloxicam 7.5 mg once a day, NovoLog 12 units before meals, losartan 50 mg per day, levothyroxine 50 mcg per day, atorvastatin 40 mg per day, VESIcare 5 mg once a day, Lantus 30 units subcutaneous, sertraline 100 mg per day, metformin 1000 mg b.i.d., amlodipine 10 mg per day, aspirin 81 mg per day. SOCIAL HISTORY: The patient continues to smoke 1 pack of tobacco per day and has done so for years. Denies IV or illicit drug use. Denies any chronic alcohol use. She is retired. She is unaccompanied at today's visit. IMAGING: No new imaging available. PQRS: The patient has known arthritic changes of the bilateral hands, bilateral shoulders, lumbar spine and bilateral feet and knees. No rheumatoid arthritis. She is placing pain intensity today 810. Fall risk is noted, but has not had a fall in last 3 months. She uses a cane for ambulation. At times, she does use a roller walker. The patient is not on blood thinners, [place] [address] PAIN MANAGEMENT CONSULTATION Name: KIM JIMENEZ Room #: REG CL Isabel#: [id number] Admission: 03/11/20 Attend Phys: Hawk Otoole DO Discharge: Date of : 47 Report #: [id number] hypertension. She is on chronic opioids, has a low opioid addiction potential despite the fact that she continues to smoke a pack of tobacco per day. Pain impact is 37/70, moderate interference of daily activities secondary to pain. PHYSICAL EXAMINATION: VITAL SIGNS: Blood pressure 122/64, pulse 94, respiratory rate 20, O2 sat 95% on room air. Height 5 feet 3 inches tall, weight 190 pounds, BMI calculated 33.7. GENERAL: Well-developed, well-nourished, well-hydrated 74-year-old female, smells strongly of tobacco smoke, placing current pain score at around 8/10. HEENT: Normocephalic, atraumatic. Pupils are round and reactive. Speech is fluent for patient. EXTREMITIES: Show no clubbing, no cyanosis. No appreciable edema. MUSCULOSKELETAL: Seated straight leg raising is positive on the right. Supine straight leg raising is positive on the right. Muscle bulk and tone appears symmetrical, but deconditioning noted bilaterally in lower extremities. Gait is antalgic favoring right lower extremity. ASSESSMENT: 1. Symptomatic lumbar radiculopathy. 2. Displacement of lumbar intervertebral disk with radiculopathy. 3. Lumbosacral spondylosis with radiculopathy. 4. Neural foraminal stenosis of the lumbar spine. 5. Lumbar degeneration. 6. Opioid dependency. 7. Tobacco habituation. 8. Complicated medication management utilizing scheduled medications. PLAN: 1. The patient returns today in followup visit where we have discussed at length our concerns about ongoing smoking. The patient has been advised by Surgery that no surgical options will be available until the patient discontinues smoking. The fact the patient is now beginning to experience increased pain and weakness in the lower extremities would indicate that surgical options are impending. The patient needs to discontinue this activity. Smoking has been directly linked to chronic pain and I believe, she is exacerbating her symptoms with this activity. The patient states that she will begin an active process of trying to discontinue smoking as she does understand the ramifications. The patient denied today need for assistance. I do recommend she follow up with her PCP in regard to medication management to address this issue further. 2. We reviewed the fact that opiate medications are being used to provide analgesia adequate to support activities of daily living, not attempting to achieve a specific pain score on the 0-10 Visual Analog Scale. The current opiate medications are providing sufficient analgesia to allow the patient to participate in activities of daily living. The patient is not exhibiting any [facility] [address] [place] [address] PAIN MANAGEMENT CONSULTATION Name: KIM JIMENEZ Room #: REG [facility] M.Mally.#: [id number] Admission: 03/11/20 Attend Phys: Hawk Otoole DO Discharge: Date of : 47 Report #: [id number] aberrant behavior suggestive of drug diversion. The patient is not having any adverse reactions to medications. The patient is not suffering from daytime somnolence or mental acuity changes. The patient is managing opiate-induced constipation with appropriate jqtq-cpv-ddjijbe agents and dietary considerations. The patient was counseled on concern for caution with operating a motor vehicle while using opiate medications. A physical exam was performed and the patient's functional status was evaluated. All patients with back pain were advised against the bed rest greater than 4 days and were advised to return to normal activities. Pain score assessment was noted and the treatment plan was reviewed with the patient. All current medications, both prescribed and OTC were reviewed and reconciled on the electronic medical record. Tobacco screening was accomplished and smoking cessation was advised when indicated. BMI was noted and diet/exercise modification was recommended for all patients following outside normal parameters. I reviewed with the patient today their responsibilities to safeguard prescription medications, reviewed their responsibility to utilize medications only as prescribed by the physician. They are to seek and receive pain medications only from 1 physician group ( [facility]). They are to use 1 pharmacy and keep the clinic informed if they change pharmacies. Their responsibilities include making followup visits in a timely fashion and to avoid abrupt discontinuation of medication usage. Their responsibilities further include bringing their medications (bottles from the pharmacy with residual pills) to the visit for possible confirmation of pill counts and the patient understands it is their responsibility to submit to random drug screens to ensure both that the medications prescribed are present, and that no other controlled substances are present. All prescriptions provided today were generated electronically. 3. The patient was provided prescription of gabapentin 300 mg dose 3 tabs p.o. t.i.d. I have given the patient #270 to make up 900 mg t.i.d. dose. She was given this prescription with 2 refills. The patient was advised to confirm with her pharmacy before she leaves with the prescription that 270 tablets are present in the bottle before she leaves as she was short of the medication at the last visit and this caused the patient near $300 to continue the therapy. 4. The patient was provided a prescription of oxycodone/acetaminophen 10/325 mg dose 1 tab p.o. q. 4 hours p.r.n. for pain. I have given the patient #150, which equates to 75 morphine equivalents a day, well within the safe range for CDC recommendations less than 90 morphine equivalents, but further escalation would not be recommended. The patient is to take no more than the 5 tablets provided per day. Prescriptions are to release today and 2 months' worth of medication. All prescriptions sent via e-scribed to local pharmacy. 5. We will see the patient back in followup visit in 2 months for medication [address] [address] PAIN MANAGEMENT CONSULTATION Name: KIM JIMENEZ Room #: REG JAYLIN Hall#: [id number] Admission: 03/11/20 Attend Phys: Hawk Otoole DO Discharge: Date of : 47 Report #: [id number] management. At that time, we will discuss further smoking cessation and address any interventional treatments necessary. <ELECTRONICALLY SIGNED> By: Hawk Otoole DO 03/12/20 0730 1401 1418 Hawk Otoole DO /nt
== END ==
LOC: PAIN 07:38
PROVIDERS: ATTEND Anesthesiology Pain Medicine
DX: M51.16 Intervertebral disc disorders with radiculopathy, lumbar region (principal); M79.604 Pain in right leg; M79.605 Pain in left leg; R20.2 Paresthesia of skin; M47.27 Other spondylosis with radiculopathy, lumbosacral region; F11.20 Opioid dependence, uncomplicated; Z72.0 Tobacco use

== ENCOUNTER → 2020-04-28 | Outpatient (CLI) | payer OTHER, BC ==
[~2020-04-28] VITALS: Ht 160 cm; Wt 86.5 kg
[~2020-04-28] MED LIST changes: +NEURONTIN300 MG PO
[2020-04-28 09:26] VITALS: BP 149/79
--- NOTE | 2020-04-28 09:29 | NUR ---
Pain Clinic Assessment: 1. History of Osteoarthritis: B/L HANDS B/L KNEES B/L FEET SPINE History of Rheumatoid Arthritis: DENIES 2. Height: 5 ft. 3 in. 160.0 cm. Weight: 190.8 lb. oz. 86.546 kg. Patient's BMI: 33.8 3. Vital Signs: BP: 149/79 Pulse: 102 Resp: 20 Temp: 02 Sat: 94 ECG Mon: 4. Pain Intensity: 8-9 WHEN BAD 5. Fall Risk: Dizziness: N Needs help standing or walking: N Fallen in the last 3 months: N Fall risk comments: FELL A FEW WEEKS AGO-R/T DIZZINESS. DOESN'T FALL WHEN USES CANE. 6. Patient on Blood Thinner: None 7. History of Hypertension: Y 8. Opioid Therapy greater than 6 weeks: Y Opiate Contract Signed: 12/16/15 9. Risk Assessment Tool Provided: LOW RISK 0 10. Functional Assessment Tool: 37 11. Recreational Drug Use: Never Drug Type: Tobacco Use: Current Every Day Smoker Tobacco Type: Amount or Packs/day: How Many Years: Alcohol Use: No Frequency: Quant:
--- NOTE | 2020-04-28 14:17 | HPC ---
[facility] [address] [place] [address] PAIN MANAGEMENT CONSULTATION Name: KIM JIMENEZ Room #: REG JAYLIN Isabel#: [id number] Admission: 04/28/20 Attend Phys: Neela Hill Discharge: Date of : 47 Report #: [id number] CC: Neela Phillips MD DATE OF SERVICE: 04/28/2020 CHIEF COMPLAINT: Low back pain, bilateral lower extremity pain and paresthesias and weakness. HISTORY OF PRESENT ILLNESS: This is a 74-year-old female who returns to the pain clinic today to discuss her ongoing pain situation. Today, she is reporting a pain score of 8-9, most significantly located in her lower back and right leg, though she does have some ongoing left leg issues as well. She reports that she is going to have a second opinion, seen a neurosurgeon, Dr. Rodriguez in the near future to discuss surgery options. Today, she reports her pain is worse with any standing and walking. She does have a rolling walker that she uses at all times. Her pain is slightly diminished with lying down as well as taking her pain medication of oxycodone. The patient does report that her in January. She had been in a long-term care facility since July, then hospitalized where she was able to be with him during his . She believes now that she no longer has to worry about his care. She will start taking care of herself, though she reports she has been undergoing under significant stress since she has passed with the paperwork that is required. Because of this she reports she has not stopped smoking as Dr. Hawk Otoole had encouraged her as well as the surgeon, Dr. Ross. ALLERGIES: LISINOPRIL and ORPHENADRINE. CURRENT MEDICATIONS: Oxycodone 10/325 up to 5 times a day, nortriptyline 75 mg at bedtime, gabapentin 900 mg t.i.d., meloxicam, NovoLog, losartan, Synthroid, Lipitor, VESIcare, Lantus, sertraline, metformin, amlodipine and aspirin. PQRS: 1. She has a history of known arthritic changes in her bilateral hands, shoulders, lumbar spine, feet and knees. Denies any rheumatoid arthritis. 2. Height is 5 feet 3 inches, weight is 190 and BMI is 33. 3. Vital signs 149/79, pulse is 102, respirations 20 and oxygen sat is 94. 4. Pain score is 8 to 9. 5. Denies dizziness, does not need help walking or standing, has not fallen in the last 3 months, but does use a walker at all times. 6. The patient is not on any blood thinners, but does take medicine for hypertension. Her opioid therapy is greater than 6 weeks; therefore, an opioid signed contract is on the chart. Risk assessment is low. Functional assessment is 37/70. 7. Recreational drug use, she denies. She continues to smoke cigarettes and does not drink alcohol. According to the prescription monitoring system, the patient is filling appropriately in a timely fashion. She is due to fill next week. Her morphine mEq is 75 MME per day. PHYSICAL EXAMINATION: GENERAL: This is a well-developed, well-nourished, well-hydrated 74-year-old female who is rating her pain score at 8-9/10 today. HEENT: Normocephalic, atraumatic. Pupils are equal, round and reactive to light. She is wearing a mask. EXTREMITIES: No clubbing, no cyanosis, no edema. MUSCULOSKELETAL: Seated straight leg raising is positive on the right. Her muscle strength and tone are diminished on the right and deconditioned in bilateral lower extremities. Her gait is antalgic, favoring her lower right extremity. She has tenderness in her lumbar spine with radicular symptoms following the L4-5 and L5-S1 dermatomal distribution. ASSESSMENT: 1. Symptomatic lumbar radiculopathy. 2. 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 3. Lumbosacral spondylosis with radiculopathy. 4. Lumbar degeneration. 5. Neural foraminal stenosis of the lumbar spine. 6. Tobacco habituation. 7. Complicated medical management utilizing scheduled medications. We reviewed the fact that opiate medications are being used to provide analgesia adequate to support activities of daily living, not attempting to achieve a specific pain score on the 0-10 Visual Analog Scale. The current opiate medications are providing sufficient analgesia to allow the patient to participate in activities of daily living. The patient is not exhibiting any aberrant behavior suggestive of drug diversion. The patient is not having any adverse reactions to medications. The patient is not suffering from daytime somnolence or mental acuity changes. The patient is managing opiate-induced constipation with appropriate lagq-iwy-vvxfcym agents and dietary considerations. The patient was counseled on concern for caution with operating a motor vehicle while using opiate medications. PLAN: 1. We discussed treatment options with the patient today. The patient reports she is going to see a second opinion per Neurosurgery. She is going to obtain records from hospital today to take to Dr. Rodriguez at [facility]. The patient is hopeful to be able to schedule surgery soon since her has recently . She is going to concentrate on her health. 2. We did discuss smoking cessation. The patient states due to her increased stress since her has , she has continued to smoke. I explained to her that Dr. Rodriguez may also encourage her to stop smoking prior to surgery just as Dr. Ross had encouraged her. Dr. Hawk Otoole has discussed this with her in the past as well. Encouraging her that smoking has been directly linked to chronic pain and exacerbating symptoms again. 3. We will continue the patient on 5 tablets of Oxycodone 10/325 a day. The patient reports some days she does take 6. I explained to her again that she is allowed 150 tablets max in a 30-day supply. Encouraging her to stay at no more than 5 daily. We will send medications electronically to be released in 1 week and then in 5 weeks based on her last prescription refills. 4. I will send nortriptyline 75 mg at bedtime, #30 with 2 additional refills and gabapentin 300 mg tablets, 900 t.i.d., 270 amount with 2 additional refills. 5. I encouraged the patient to keep us apprised on if she does have surgery before her next visit in 2 months. The patient is seen today in collaboration with Dr. Hawk Otoole. <ELECTRONICALLY SIGNED> By: Neela Hill 04/28/20 1417 [id number] 1216 Neela Hill /nt
== END ==
LOC: PAIN 06:53
PROVIDERS: ATTEND Clinical Nurse Specialist Adult Health
DX: M51.16 Intervertebral disc disorders with radiculopathy, lumbar region (principal); M47.27 Other spondylosis with radiculopathy, lumbosacral region; M48.061 Spinal stenosis, lumbar region without neurogenic claudication; M79.604 Pain in right leg; M79.605 Pain in left leg; R20.2 Paresthesia of skin; F17.200 Nicotine dependence, unspecified, uncomplicated

== ENCOUNTER → 2020-06-02 | Outpatient (CLI) | payer OTHER, BC ==
[~2020-06-02] VITALS: Ht 170.2 cm; Wt 82.1 kg
[2020-06-02 12:27] VITALS: BP 166/80
--- NOTE | 2020-06-02 12:37 | NUR ---
Pain Clinic Assessment: 1. History of Osteoarthritis: B/L HANDS B/L KNEES B/L FEET SPINE History of Rheumatoid Arthritis: DENIES 2. Height: 5 ft. 7 in. 170.2 cm. Weight: 181.0 lb. oz. 82.101 kg. Patient's BMI: 28.3 3. Vital Signs: BP: 166/80 Pulse: 87 Resp: 16 Temp: 02 Sat: 96 ECG Mon: 4. Pain Intensity: 8 5. Fall Risk: Dizziness: N Needs help standing or walking: N Fallen in the last 3 months: N Fall risk comments: FELL A FEW WEEKS AGO-R/T DIZZINESS. DOESN'T FALL WHEN USES CANE. 6. Patient on Blood Thinner: None 7. History of Hypertension: Y 8. Opioid Therapy greater than 6 weeks: Y Opiate Contract Signed: 12/16/15 9. Risk Assessment Tool Provided: LOW RISK 0 10. Functional Assessment Tool: 11. Recreational Drug Use: Never Drug Type: Tobacco Use: Current Every Day Smoker Tobacco Type: Cigarettes Amount or Packs/day: 1 PACK How Many Years: Alcohol Use: No Frequency: Quant:
--- NOTE | 2020-06-03 13:00 | HPC ---
[facility] [address] [place] [address] PAIN MANAGEMENT CONSULTATION Name: KIM JIMENEZ Room #: REG JAYLIN Hall#: [id number] Admission: 06/02/20 Attend Phys: Neela Hill Discharge: Date of : 49 Report #: [id number] THIS REPORT FOR: cc: Aster Hyde MD, Sharon R. MD Hocker, Amanda CNS ~ CC: Neela Otoole DO DATE OF SERVICE: 06/02/2020 CHIEF COMPLAINT: Low back pain, bilateral lower extremity pain with paresthesias and weakness. HISTORY OF PRESENT ILLNESS: This is a pleasant 74-year-old female who has been a patient of ours for several years and has ongoing low back pain that radiate into both lower extremities with numbness and weakness. The patient does report ongoing issues and would like to discuss with a neurosurgeon possible surgery. She has seen one in the past, but at that time it was not feasible for her to undergo surgery due to helping care for her . She reports to me that she is going to see a neurologist soon in [facility]. She is unsure of the appointment date. The patient continues to have ongoing achy weakness in her low back that radiate into her legs. She believes that standing and walking are the most painful. She utilizes a walker at all times, has not fallen recently and use electric scooter when she is outside her apartment building to help with mobility. She believes the medication is beneficial in relieving some of her pain though she does continue to rate it quite high at 8/10 today. She denies issues with constipation. The patient did report last week not taking her medications for several days, started to experience withdrawal symptoms and was dehydrated because she was not eating. Her weight is decreased since our last visit by 9 pounds. The patient reports she was just depressed dealing with the holidays without her . Her family did come and take her to their house for several days. She reports feeling more upbeat today. ALLERGIES: LISINOPRIL and ORPHENADRINE. CURRENT MEDICATIONS: Oxycodone 10/325 up to 5 times a day, nortriptyline 75 mg at bedtime, gabapentin 900 mg t.i.d., meloxicam, insulin, Cozaar, Synthroid, Lipitor, VESIcare, Lantus, sertraline, metformin, amlodipine and aspirin. PQRS: She has osteoarthritis affecting her hands, knees, spines and feet. Denies any rheumatoid arthritis. Height is 5 feet 7 inches, weight is 181, [place] [address] PAIN MANAGEMENT CONSULTATION Name: KIM JIMENEZ Room #: REG [facility].#: [id number] Admission: 06/02/20 Attend Phys: Neela Hill Discharge: Date of : 47 Report #: [id number] is 28. Vital signs: 166/80, pulse is 87, respirations 16, oxygen sat is 96. Pain score is 8/10. Fall risk: Denies dizziness. Does use assistance with walker or electric wheelchair, has not fallen. The patient is not on any blood thinners, but does take medicine for hypertension. Opioid therapy is greater than 6 weeks; therefore, an opioid signed contract is on the chart. Risk assessment is low. Functional assessment is 40/70. Recreational drug use, she denies. She continues to smoke half a pack of cigarettes a day and does not drink alcohol. According to the prescription monitoring system, she is filling appropriately on a timely fashion. Her morphine milliequivalent is 75 MME per day. We will collect a random drug screen on this patient today. PHYSICAL EXAMINATION: GENERAL: This is alert and orientated, well-developed, well-nourished, well-hydrated 74-year-old female who is placing her current pain score at 8/10 today. HEENT: Normocephalic, atraumatic. Pupils equal, round and reactive to light. Speech is fluent. She is wearing a mask. EXTREMITIES: No clubbing, no cyanosis, no edema. MUSCULOSKELETAL: Seated straight leg raising is positive on the right. Muscle bulk and tone is symmetrical at 5/5, but deconditioned slightly in her lower extremities. Her gait is antalgic, using a walker. She has tenderness in her lumbosacral region that is palpable in her paraspinal musculature. ASSESSMENT: 1. Symptomatic lumbar radiculopathy. 2. Displacement of lumbar intervertebral disk with radiculopathy. 3. Lumbosacral spondylosis with radiculopathy. 4. Lumbar degeneration. 5. Opioid dependency. 6. Tobacco habituation. 7. Complicated medical management utilizing scheduled medications. We reviewed the fact that opiate medications are being used to provide analgesia adequate to support activities of daily living, not attempting to achieve a specific pain score on the 0-10 Visual Analog Scale. The current opiate medications are providing sufficient analgesia to allow the patient to participate in activities of daily living. The patient is not exhibiting any aberrant behavior suggestive of drug diversion. The patient is not having any adverse reactions to medications. The patient is not suffering from daytime somnolence or mental acuity changes. The patient is managing opiate-induced constipation with appropriate xyvu-zmo-zccxlpe agents and dietary considerations. The patient was counseled on concern for caution with operating a motor vehicle while using opiate medications. [facility] [address] [place] [address] PAIN MANAGEMENT CONSULTATION Name: KIM JIMENEZ [id number] Admission: 06/02/20 Attend Phys: Neela Hill Discharge: Date of : 49 Report #: [id number] PLAN: 1. We discussed treatment options with the patient today. The patient continues to have ongoing weakness and pain in her lower back and legs. She believes since her pain has continued to be bothersome, she is now ready to seek neurosurgery options. She has had lumbar epidural steroid injections as well as a spinal cord stimulator trial that was not effective in helping control her pain. We will refer her to Dr. Buckner for a consult. She does have an MRI from last June that the patient has the disc that she will take with her to determine if he believes she is a surgical candidate. 2. We will continue her on oxycodone 10/325, #50, sending this medication for today as well as 4-week supply. She is not in need of her nortriptyline or gabapentin today. 3. We will collect a random drug screen, it has been greater than a year since her last screening. The patient is seen today in collaboration with Dr. Hakw Otoole. <ELECTRONICALLY SIGNED> By: Neela Hill 06/03/20 1300 [id number] Neela hampton
== END ==
LOC: PAIN 06:48
PROVIDERS: ATTEND Clinical Nurse Specialist Adult Health
DX: M51.16 Intervertebral disc disorders with radiculopathy, lumbar region (principal); M47.27 Other spondylosis with radiculopathy, lumbosacral region; M79.604 Pain in right leg; M79.605 Pain in left leg; R20.2 Paresthesia of skin; F11.20 Opioid dependence, uncomplicated; F17.200 Nicotine dependence, unspecified, uncomplicated; Z79.899 Other long term (current) drug therapy

== ENCOUNTER → 2020-07-01 | Outpatient (CLI) | payer OTHER, BC ==
[~2020-07-01] VITALS: Ht 170.2 cm; Wt 81.6 kg
--- NOTE | ~2020-07-01 | HPC ---
[facility] [place] [address] PAIN MANAGEMENT CONSULTATION Name: KIM JIMENEZ Room #: REG JAYLIN Hall#: [id number] Admission: 07/01/20 Attend Phys: Neela Hill Discharge: Date of : 49 Report #: [id number] THIS REPORT FOR: cc: Aster Hyde MD, Sharon R. MD Hocker,Neela Wiggins DATE OF SERVICE: 07/01/2020 CHIEF COMPLAINT: Low back pain, bilateral lower extremity pain with paresthesias and weakness. HISTORY OF PRESENT ILLNESS: This is a 74-year-old female who returns to the pain clinic today to discuss postoperative pain management. The patient is having back surgery with Dr. Jonh Buckner on 07/06/2020 at [facility] per her report. She reports staying in the hospital for at least 1 day and possibly going to a rehab facility postoperatively since she lives alone. Today, her pain is most significant in her low back that radiates down her legs with significant weakness in her legs, using a walker at all times, rating a pain score of 8/10. She believes when she rests and lies down and takes her pain medicine, her pain is well controlled, but anytime she is ambulating, it does increase significantly. She does report multiple falls due to weakness in her legs. She is wondering about pain management postoperatively since she does have a contract with Dr. Hawk Otoole for opioid medications. ALLERGIES: LISINOPRIL AND ORPHENADRINE. MEDICATIONS: Oxycodone 10/325 p.r.n., max 5 tablets a day, nortriptyline 75 mg at bedtime, gabapentin 900 t.i.d., meloxicam 7.5 mg daily, NovoLog, Cozaar, Synthroid, Lipitor, VESIcare, Lantus, Zoloft, metformin, amlodipine and aspirin. PQRS: 1. She has osteoarthritis affecting her knees, hands, spine and feet. Denies any rheumatoid arthritis. 2. Height is 5 feet 7 inches, weight is 180, BMI is 28. 3. Vital signs, 150/87, pulse is 101, respirations 18, oxygen sat is 97%. 4. Pain score is 8/10. 5. Denies dizziness. Does need assistance with walking, uses a walker at all times and has fallen several times in the last 3 months. 6. The patient is not on any blood thinners, but does take medicine for hypertension. Her opioid therapy is greater than 6 weeks; therefore, an opioid signed contract is on the chart. Risk assessment is low. Functional assessment is 40/70. 7. Recreational drug use, she denies. She currently smokes a pack of cigarettes a day and does not drink alcohol. According to the prescription monitoring system, she is due to fill her [address] [address] PAIN MANAGEMENT CONSULTATION Name: KIM JIMENEZ [id number] Admission: 07/01/20 Attend Phys: Neela Hill Discharge: Date of : 49 Report #: [id number] medications today. There is a prescription at the pharmacy for her to fill. Her morphine mEq is 75. PHYSICAL EXAMINATION: GENERAL: This is alert and oriented, very anxious 74-year-old female who appears her stated age, placing her current pain score as 8/10 today. HEENT: Normocephalic, atraumatic. Pupils equal, round, and reactive. She is wearing a mask. EXTREMITIES: No clubbing, no cyanosis, no edema. MUSCULOSKELETAL: Muscle strength, her muscle bulk and tone is symmetrical with decreased strength in her lower extremities due to deconditioning, using a walker at all times. Her gait is antalgic. She has tenderness in the lumbosacral region along her paraspinal musculature that does radiate into her bilateral legs. Seated straight leg raising is positive. ASSESSMENT: 1. Symptomatic lumbar radiculopathy. 2. 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 3. Lumbosacral spondylosis with radiculopathy. 4. Lumbar degeneration. 5. Tobacco habituation. 6. Opioid dependency. 7. Complicated medical management utilizing scheduled opioid medications. We reviewed the fact that opiate medications are being used to provide analgesia adequate to support activities of daily living, not attempting to achieve a specific pain score on the 0-10 Visual Analog Scale. The current opiate medications are providing sufficient analgesia to allow the patient to participate in activities of daily living. The patient is not exhibiting any aberrant behavior suggestive of drug diversion. The patient is not having any adverse reactions to medications. The patient is not suffering from daytime somnolence or mental acuity changes. The patient is managing opiate-induced constipation with appropriate [id number] agents and dietary considerations. The patient was counseled on concern for caution with operating a motor vehicle while using opiate medications. PLAN: 1. We discussed postoperative care today. We encouraged the patient to decrease her opioid medications prior to surgery, decreasing to 2 tablets a day, she may have increased pain for the next few days, but she should find this beneficial postoperative in controlling her pain. The patient is agreeable. She does report as long as she is resting, which she will do the next few days, her pain is significantly better. We instructed her to lock up the remaining script when she goes to the hospital in her house in her lock box, do not take it with her to the hospital. 2. We informed the patient that she may obtain postoperative opioids from [facility] [address] [place] [address] PAIN MANAGEMENT CONSULTATION Name: KIM JIMENEZ Room #: REG CL Isabel#: [id number] Admission: 07/01/20 Attend Phys: Neela Hill Discharge: Date of : 49 Report #: [id number] Dudley while she is in his care postoperatively, then return to our clinic to discuss weaning parameters after she is released from his care. 3. The patient is instructed to stop her meloxicam by Monday and continue her other medications. 4. I did encourage the patient if she is a candidate, to possibly attend a rehab facility post-surgery to help on building endurance and strength in her lower extremities. The patient does live alone in an apartment and would welcome additional care. 5. The patient is seen today in collaboration with Dr. Hawk Otoole. We will see her at the end of July or beginning of August after she is released from Dr. Buckner. By: [id number] Neela Hill /nt
[2020-07-01 13:00] VITALS: BP 150/87
--- NOTE | 2020-07-01 13:02 | NUR ---
Pain Clinic Assessment: 1. History of Osteoarthritis: B/L HANDS B/L KNEES B/L FEET SPINE History of Rheumatoid Arthritis: DENIES 2. Height: 5 ft. 7 in. 170.2 cm. Weight: 180.0 lb. oz. 81.648 kg. Patient's BMI: 28.2 3. Vital Signs: BP: 150/87 Pulse: 101 Resp: 18 Temp: 02 Sat: 97 ECG Mon: 4. Pain Intensity: 8 5. Fall Risk: Dizziness: N Needs help standing or walking: Y Fallen in the last 3 months: Y Fall risk comments: C/O FALLS ALOT, FALLS OUT OF CHAIR SOMETIMES. USING WALKER TODAY 6. Patient on Blood Thinner: None 7. History of Hypertension: Y 8. Opioid Therapy greater than 6 weeks: Y Opiate Contract Signed: 12/16/15 9. Risk Assessment Tool Provided: LOW RISK 0 10. Functional Assessment Tool: 11. Recreational Drug Use: Never Drug Type: Tobacco Use: Current Every Day Smoker Tobacco Type: Cigarettes Amount or Packs/day: 1 How Many Years: 20 Alcohol Use: No Frequency: Quant:
== END ==
LOC: PAIN 06:52
PROVIDERS: ATTEND Clinical Nurse Specialist Adult Health
DX: M47.27 Other spondylosis with radiculopathy, lumbosacral region (principal); M47.26 Other spondylosis with radiculopathy, lumbar region; Z79.891 Long term (current) use of opiate analgesic

== ENCOUNTER → 2020-07-28 | Outpatient (CLI) | payer OTHER, BC ==
[~2020-07-28] VITALS: Ht 170.2 cm; Wt 84.2 kg
[2020-07-28 08:36] VITALS: BP 154/83
--- NOTE | 2020-07-28 08:56 | NUR ---
Pain Clinic Assessment: 1. History of Osteoarthritis: B/L HANDS B/L KNEES B/L FEET SPINE History of Rheumatoid Arthritis: DENIES 2. Height: 5 ft. 7 in. 170.2 cm. Weight: 185.6 lb. oz. 84.188 kg. Patient's BMI: 29.1 3. Vital Signs: BP: 154/83 Pulse: 106 Resp: 20 Temp: 02 Sat: 98 ECG Mon: 4. Pain Intensity: 5 5. Fall Risk: Dizziness: N Needs help standing or walking: Y Fallen in the last 3 months: N Fall risk comments: C/O FALLS ALOT, FALLS OUT OF CHAIR SOMETIMES. USING WALKER TODAY 6. Patient on Blood Thinner: None 7. History of Hypertension: Y 8. Opioid Therapy greater than 6 weeks: Y Opiate Contract Signed: 12/16/15 9. Risk Assessment Tool Provided: LOW RISK 2 10. Functional Assessment Tool: 11. Recreational Drug Use: Never Drug Type: Tobacco Use: Current Every Day Smoker Tobacco Type: Cigarettes Amount or Packs/day: 1 PACK How Many Years: 20 Alcohol Use: No Frequency: Quant:
--- NOTE | 2020-07-29 15:45 | HPC ---
[facility] [place] [address] PAIN MANAGEMENT CONSULTATION Name: KIM JIMENEZ Room #: REG JAYLIN Hall#: [id number] Admission: 07/28/20 Attend Phys: Neela Hill Discharge: Date of : 49 Report #: [id number] THIS REPORT FOR: cc: Aster Hyde MD, Sharon R. MD Hocker,Neela Wiggins DATE OF SERVICE: 07/28/2020 CHIEF COMPLAINT: Low back pain, bilateral lower extremity pain and paresthesias and weakness. HISTORY OF PRESENT ILLNESS: This is a 74-year-old female who returns to the pain clinic today for refill of her medications. She was scheduled for back surgery with Dr. Jonh Buckner on 07/06/2020. Unfortunately, she tested positive in her prescreening, so her surgery has been delayed until 08/12/2020. The patient does report no COVID symptoms. She thinks that she had a false positive, but she did quarantine for 14 days. It has now been greater than 3 weeks since that positive test. She reports she will be tested again prior to surgery and is going to see her primary doctor as well. The patient continues to complain of ongoing low back pain that does radiate into her bilateral legs, rating her pain score of 5-10. She states on some days she does need 6 pain pills a day, though we have been prescribing 5 maximum; therefore, today she is reporting she will be out tomorrow, which is a couple of days early of her pain medicines. The patient describes her pain as a constant, burning, aching pain that is worse with any standing and walking. She does utilize a walker at all times. She feels best when she does lay down or has recently taken her pain medication. The patient would like refills of her pain medicine postoperatively today. ALLERGIES: LISINOPRIL AND ORPHENADRINE. MEDICATIONS: Oxycodone 10/325 p.r.n., nortriptyline, gabapentin, Meloxicam, NovoLog insulin, Cozaar, Synthroid, Lipitor, VESIcare, Lantus, sertraline, Glucophage, amlodipine and aspirin. PQRS: 1. She has osteoarthritic changes in her hands, knees and feet as well as spinal stenosis in her spine. She denies any rheumatoid arthritis. 2. Height is 5 feet 7 inches, weight is 185, BMI is 29. 3. Vital signs; blood pressure 154/83, pulse is 106, respirations 20, oxygen sat is 98%. 4. Pain score is 5/10. 5. Fall risk. Denies dizziness, does utilize a walker at all times and has not fallen in the last 3 months. 6. The patient is not on any blood thinners, [place] [address] PAIN MANAGEMENT CONSULTATION Name: KIM JIMENEZ Room #: REG [facility].#: [id number] Admission: 07/28/20 Attend Phys: Neela Hill Discharge: Date of : 49 Report #: [id number] hypertension. 7. Opioid therapy is greater than 6 weeks; therefore, an opioid signed contract is on the chart. Risk assessment is low. Functional assessment is 42/70. 8. Recreational drug use, she denies. She continues to smoke a pack of cigarettes a day and does not drink alcohol. According to the prescription monitoring system, she is a couple of days early to fill her medications. Her morphine milliequivalent is 75 MME. PHYSICAL EXAMINATION: GENERAL: This is alert and orientated, anxious 74-year-old female who appears her stated age, placing her current pain score today at 5/10. HEENT: Normocephalic, atraumatic. Extraocular eye muscles are intact. Pupils equal. She is wearing a mask. EXTREMITIES: No clubbing, no cyanosis, no edema. MUSCULOSKELETAL: She has palpatory tenderness in her paraspinal musculature of her lower lumbar spine, no spinous process tenderness. Seated straight leg raising is positive, greater on the right than the left. Lower extremity strength is symmetrical, though slightly deconditioned. She uses a walker at all times and has an antalgic gait favoring her right lower extremity. ASSESSMENT: 1. Symptomatic lumbar radiculopathy. 2. Displacement of lumbar intervertebral disk with radiculopathy. 3. Lumbosacral spondylosis with radiculopathy. 4. Lumbar degeneration. 5. Opioid dependency. 6. Tobacco habituation. 7. Complicated medical management utilizing scheduled opioids. 8. Recent COVID-19. PLAN: 1. We discussed treatment options with the patient today. Unfortunately, she did test positive for COVID, but she was fortunate to not to experience any symptoms. Surgery is now scheduled for 08/12/2020. I reiterated with her the same schedule for decreasing her medications prior to surgery as I had at her last appointment. She has brought with her, her discharge papers from that visit. We have changed the date slightly and forming her to decrease her medications on Monday prior to surgery for 2 tablets a day to help control her pain postoperatively and to stop her meloxicam on Monday as well. The patient agrees and will follow the plan of care that was determined in June. 2. We will send oxycodone , #150 to her pharmacy for today and 4-week release. These will be sent by Dr. Hawk Otoole. I did remind the patient she is allowed 5 tablets a day if she feels like she is needing additional medications on painful days she is instructed to take Extra Strength Tylenol not an extra pain pill and reminded her that after she is healed from surgery we [facility] [address] [place] [address] PAIN MANAGEMENT CONSULTATION Name: KIM JIMENEZ Room #: REG CLI Isabel#: [id number] Admission: 07/28/20 Attend Phys: Neela Hill Discharge: Date of : 49 Report #: [id number] will slowly decrease her opioid medications. 3. The patient is not needing her gabapentin or nortriptyline refilled today. The patient instructed to have postoperative medications from Dr. Buckner and we will see her once she is released from his care. <ELECTRONICALLY SIGNED> By: Neela Hill 07/29/20 1545 [id number] Neela Hill /nt
== END ==
LOC: PAIN 06:50
PROVIDERS: ATTEND Clinical Nurse Specialist Adult Health
DX: M47.27 Other spondylosis with radiculopathy, lumbosacral region (principal); M51.16 Intervertebral disc disorders with radiculopathy, lumbar region; M79.604 Pain in right leg; M79.605 Pain in left leg; R20.2 Paresthesia of skin; F17.200 Nicotine dependence, unspecified, uncomplicated; F11.20 Opioid dependence, uncomplicated; Z88.8 Allergy status to other drugs, medicaments and biological substances; Z79.899 Other long term (current) drug therapy

== ENCOUNTER → 2020-08-25 | Outpatient (CLI) | payer OTHER, BC ==
[~2020-08-25] VITALS: Ht 170.2 cm; Wt 86.7 kg
[2020-08-25 09:45] VITALS: BP 133/77
--- NOTE | 2020-08-25 09:46 | NUR ---
Pain Clinic Assessment: 1. History of Osteoarthritis: B/L HANDS B/L KNEES B/L FEET SPINE History of Rheumatoid Arthritis: DENIES 2. Height: 5 ft. 7 in. 170.2 cm. Weight: 191.2 lb. oz. 86.728 kg. Patient's BMI: 29.9 3. Vital Signs: BP: 133/77 Pulse: 104 Resp: 16 Temp: 02 Sat: 96 ECG Mon: 4. Pain Intensity: 8 5. Fall Risk: Dizziness: N Needs help standing or walking: Y Fallen in the last 3 months: N Fall risk comments: C/O FALLS ALOT, FALLS OUT OF CHAIR SOMETIMES. USING WALKER TODAY 6. Patient on Blood Thinner: None 7. History of Hypertension: Y 8. Opioid Therapy greater than 6 weeks: Y Opiate Contract Signed: 12/16/15 9. Risk Assessment Tool Provided: LOW RISK 2 10. Functional Assessment Tool: 11. Recreational Drug Use: Never Drug Type: Tobacco Use: Current Every Day Smoker Tobacco Type: Cigarettes Amount or Packs/day: 1 CIG How Many Years: Alcohol Use: No Frequency: Quant:
--- NOTE | 2020-08-25 14:55 | HPC ---
[facility] [place] [place] [address] PAIN MANAGEMENT CONSULTATION Name: KIM JIMENEZ Room #: REG JAYLIN Hall#: [id number] Admission: 08/25/20 Attend Phys: Neela Hill Discharge: Date of : 49 Report #: [id number] THIS REPORT FOR: cc: Aster Hyde MD,Aster Hill,Neela Wiggins DATE OF SERVICE: 08/25/2020 CHIEF COMPLAINT: Low back pain, bilateral lower extremity pain with paresthesias and weakness. HISTORY OF PRESENT ILLNESS: This is a 74-year-old female who returns to the pain clinic today. She assumed for opioid medication refills. The patient is reporting that her surgery has been postponed due to her pulmonary status. She is trying to quit smoking. She reports to me her last cigarette was on Monday, she has started the nicotine patch at 28 the step approach, her next step will be 14, which we will put on Sundays per her report. She does have another appointment with Dr. Hyde on 08/31/2020 and hopefully, she will have made progress in her withdrawal symptoms from cigarettes by then. Today, the patient reports her pain score of 8/10, mostly located in her low back and thighs. It is a constant, aching pain that is worse with any standing or walking. She does utilize a walker at all times and bending over on the walker does give her some relief. She reports that resting and lying down are also beneficial. Today, she is here requesting refills of her oxycodone tablets. She denies significant constipation or daytime somnolence as a result of her medications. ALLERGIES: LISINOPRIL AND ORPHENADRINE. CURRENT MEDICATIONS: Oxycodone 10/325 p.r.n., nortriptyline, gabapentin, meloxicam, NovoLog, Cozaar, Synthroid, atorvastatin, VESIcare, Lantus, sertraline, metformin, amlodipine and aspirin. PQRS: 1. She has osteoarthritic changes in her hands, knees, feet and spinal stenosis. Denies any rheumatoid arthritis. 2. Height is 5 feet 7 inches, weight is 191, BMI is 29. 3. Vital signs 133/77, pulse is 104, respirations 16, oxygen sat is 96%. 4. Pain score is 8/10. 5. Denies dizziness. Does use a walker at all times and reports no falls in the last 3 months. 6. The patient is not on any blood thinners, but does take medicine for hypertension. Her opioid therapy is greater than 6 weeks; therefore, an opioid signed contract is on the chart. Risk assessment is low. Functional assessment is 42/70. [address] [address] PAIN MANAGEMENT CONSULTATION Name: KIM JIMENEZ Room #: REG CL Isabel#: [id number] Admission: 08/25/20 Attend Phys: Neela Hill Discharge: Date of : 49 Report #: [id number] 7. Recreational drug use, she denies. She just quit smoking on Monday, she was smoking 1 pack of cigarettes a day, wearing a nicotine patch currently. Denies any alcohol use. According to the prescription monitoring system, she is due to fill her prescription this Monday. Her morphine milliequivalent is 75 MME per day. PHYSICAL EXAMINATION: GENERAL: This is alert and anxious 74-year-old who appears her stated age, placing her current pain score today at 8/10. She is a good historian. HEENT: Normocephalic, atraumatic. Extraocular eye muscles are intact. She is wearing a mask. MUSCULOSKELETAL: She has an antalgic gait, uses a walker at all times. Tenderness in her lumbosacral region that radiates into her legs bilaterally following the L5-S1 dermatomal distribution. Straight leg raising is positive. Her muscle strength and tone are symmetrical, but decreased bilaterally and is deconditioned. ASSESSMENT: 1. Symptomatic lumbar radiculopathy. 2. Displacement of lumbar intervertebral disk with radiculopathy. 3. Lumbosacral spondylosis with radiculopathy. 4. Lumbar degeneration. 5. Tobacco habituation, currently on nicotine patches. 6. Opioid dependency. 7. Complex medical management utilizing opioid medications. PLAN: 1. We discussed treatment options with the patient today. I explained to the patient, she has a prescription to corn picker this Monday at the pharmacy. The patient was unaware of that. We will have Dr. Hawk Otoole send a second month to be released on 09/25/2020. So therefore, the patient will return in October. We encouraged her to take no more than 5 tablets a day despite increasing in pain and reminded her to use her adjunct medication of meloxicam, gabapentin and nortriptyline. 2. We discussed her smoking cessation at length today, encouraging her to throw away any cigarettes that she has at home. She does report having a few in her purse. We discussed decreasing her nicotine patch to 14 on Monday and then 7 the following week, explaining the sooner she is without nicotine she will hopefully start feeling better. I am encouraging her to drink plenty of liquids to liquefy any secretions that she may be expelling from her lungs. 3. We did discuss the COVID vaccine. The patient is on the list to have the vaccine, though she was positive for COVID in July without symptoms and asymptomatic. The patient does not believe she had COVID; I still encouraged her to have the vaccine. 4. Great deal of time was spent counseling the patient. She is very anxious [facility] [address] [address] PAIN MANAGEMENT CONSULTATION Name: KIM JIMENEZ Room #: REG JAYLIN Hall#: [id number] Admission: 08/25/20 Attend Phys: Neela Hill Discharge: Date of : 49 Report #: [id number] about her living situation and cost since her has . We discussed options for housing with her. 5. The patient is seen today in collaboration with Dr. Hawk Otoole. She will return in October for medication refills. <ELECTRONICALLY SIGNED> By: Neela Hill 08/25/20 1455 [id number] [id number] Neela Hill /vandana
== END ==
LOC: PAIN 06:50
PROVIDERS: ATTEND Clinical Nurse Specialist Adult Health
DX: M51.16 Intervertebral disc disorders with radiculopathy, lumbar region (principal); M47.27 Other spondylosis with radiculopathy, lumbosacral region; F17.200 Nicotine dependence, unspecified, uncomplicated; R20.2 Paresthesia of skin; R53.1 Weakness; F11.20 Opioid dependence, uncomplicated; Z88.8 Allergy status to other drugs, medicaments and biological substances; Z79.899 Other long term (current) drug therapy

== ENCOUNTER → 2021-02-02 | Outpatient (CLI) | payer OTHER ==
[~2021-02-02] VITALS: Ht 170.2 cm; Wt 88.0 kg
[~2021-02-02] MED LIST changes: +MELATONIN3 M1 PO; +XARELTO2.5 MG PO
[2021-02-02 09:11] VITALS: BP 140/73
--- NOTE | 2021-02-02 09:30 | NUR ---
Pain Clinic Assessment: 1. History of Osteoarthritis: B/L HANDS B/L KNEES B/L FEET SPINE History of Rheumatoid Arthritis: DENIES 2. Height: 5 ft. 7 in. 170.2 cm. Weight: 194.0 lb. oz. 87.998 kg. Patient's BMI: 30.4 3. Vital Signs: BP: 140/73 Pulse: 113 Resp: 20 Temp: 02 Sat: 96 ECG Mon: 4. Pain Intensity: 7 5. Fall Risk: Dizziness: N Needs help standing or walking: Y Fallen in the last 3 months: N Fall risk comments: C/O FALLS ALOT, FALLS OUT OF CHAIR SOMETIMES. USING WALKER TODAY 6. Patient on Blood Thinner: None 7. History of Hypertension: Y 8. Opioid Therapy greater than 6 weeks: Y Opiate Contract Signed: 12/16/15 9. Risk Assessment Tool Provided: LOW RISK 2 10. Functional Assessment Tool: 11. Recreational Drug Use: Never Drug Type: Tobacco Use: Former Smoker Tobacco Type: Amount or Packs/day: How Many Years: Alcohol Use: No Frequency: Quant:
--- NOTE | 2021-02-03 08:20 | HPC ---
[facility] [place] [address] PAIN MANAGEMENT CONSULTATION Name: KIM JIMENEZ Room #: REG JAYLIN Isabel#: [id number] Admission: 02/02/21 Attend Phys: Neela Hill Discharge: Date of : 49 Report #: [id number] THIS REPORT FOR: cc: Aster Hyde MD, Sharon R. MD Hocker,Neela POWERS ~ cc: Hawk Otoole DO DATE OF SERVICE: 02/02/2021 CHIEF COMPLAINT: Low back pain, bilateral lower extremity pain and paresthesias, bilateral hip pain. HISTORY OF PRESENT ILLNESS: This is a 75-year-old slightly obese, very anxious patient who returns today to discuss her ongoing pain issues. The patient reports that she underwent back surgery with Dr. Buckner in early October. She feels that the back is substantially better since her surgery. Today, she is complaining of bilateral groin pain and lower abdominal pain. She reports going to rehab post-surgery for 5 weeks where she did develop a blood clot in her left lower extremity. Today, she is on Xarelto as a result of that blood clot. The patient reports a pain score today of 7/10, described it as a constant aching sensation again in her groins, not in her lower back. Her pain is worse with standing and walking, but relieved with rest and her medications. She does utilize a walker at all times. The patient reports that she has also moved since we saw her to a different apartment that she is enjoying, it is much smaller than her previous, is on the third floor where she has skylights and is very happy in her new home. The patient reports that her blood sugars are slowly coming down as well. She is reporting blood glucose levels of 120-165 per her report and her A1c is down to 8.2 from greater than 10 six months ago. ALLERGIES: No known drug allergies. CURRENT LIST OF MEDICATIONS: Neurontin 900 mg t.i.d., oxycodone 10/325 up to 5 tablets a day, nortriptyline, insulin, Cozaar, levothyroxine, Lipitor, VESIcare, Lantus, sertraline, metformin, amlodipine, aspirin and Xarelto. PQRS: 1. She has arthritic changes in her hands, knees, feet and spine. Denies any rheumatoid arthritis. Height is 5 feet 7 inches, weight is 194. BMI is 30. 2. Vital signs: Blood pressure 140/74, pulse is 113, respirations 20, oxygen sat is 96%. Pain score 7/10. Fall risk, denies dizziness. Does utilize a walker at all times. Has not fallen in the last 3 months. 3. The patient is on Xarelto as well as medications for hypertension. 4. Opioid therapy is greater than 6 weeks; therefore, an opioid signed contract is on the chart. [address] [address] PAIN MANAGEMENT CONSULTATION Name: KIM JIMENEZ Room #: REG JAYLIN Hall#: [id number] Admission: 02/02/21 Attend Phys: Neela Hill Discharge: Date of : 49 Report #: [id number] 5. Risk assessment is low. Functional assessment is 42/70. 6. Recreational drug use, she denies. She is a former smoker. She did quit on 10/01/2020 and does not drink alcohol. According to the prescription monitoring system, the patient is filling appropriately in a timely fashion. She did get prescriptions from her surgeon postoperatively. Her morphine mEq is 75 MME. PHYSICAL EXAMINATION: GENERAL: This is alert and orientated, very anxious 75-year-old morbidly obese female, rating her pain score today at 7/10. She is a good historian. HEENT: Normocephalic, atraumatic. Extraocular eye muscles are intact. She is wearing a mask. MUSCULOSKELETAL: She has an antalgic gait, uses a walker at all times. She has tenderness in her groins bilaterally today with symptoms in her upper thighs and numbness and tingling in her feet bilaterally. Her left lower extremity has 1+ edema from previous blood clot. No back tenderness presently. Examination of her right hip causes significant pain with any range of motion. ASSESSMENT: 1. Symptomatic lumbar radiculopathy. 2. Displacement of lumbar intervertebral disk with radiculopathy. 3. Lumbosacral spondylosis with radiculopathy. 4. Recent laminectomy. 5. Diabetes mellitus, uncontrolled. 6. Bilateral hip pain, right greater than left. 7. Opioid dependency. 8. Complex medical management utilizing scheduled opioid medications. 9. Recent blood clot in lower left extremity. We reviewed the fact that opiate medications are being used to provide analgesia adequate to support activities of daily living, not attempting to achieve a specific pain score on the 0-10 Visual Analog Scale. The current opiate medications are providing sufficient analgesia to allow the patient to participate in activities of daily living. The patient is not exhibiting any aberrant behavior suggestive of drug diversion. The patient is not having any adverse reactions to medications. The patient is not suffering from daytime somnolence or mental acuity changes. The patient is managing opiate-induced constipation with appropriate dvmk-ngv-rjcaxsl agents and dietary considerations. The patient was counseled on concern for caution with operating a motor vehicle while using opiate medications. PLAN: 1. We discussed treatment options with the patient today. The patient states her back pain is much better since her surgery with Dr. Buckner. She continues to have occasional leg pain, but most significantly bilateral groin pain. I will send her for x-ray of her right hip to see if she has arthritic changes [facility] [address] [place] [address] PAIN MANAGEMENT CONSULTATION Name: KIM JIMENEZ MING Room #: REG CLI Isabel#: [id number] Admission: 02/02/21 Attend Phys: Neela Hill Discharge: Date of : 49 Report #: [id number] there. I do not believe she would have any fractures, but having significant pain with ambulation as well as any range of motion. AP, lateral right hip x-ray ordered. 2. Our plan is to decrease her medications postoperatively since it has been 3 months since surgery, I believe that we will start decreasing her oxycodone from 10/325 5 times a day to 4. The patient is agreeable with this. I encouraged her to space these out every 6 hours as needed. We also explained to the patient that there may be a shortage of opioid medications due to distribution issues and to make sure she has the correct amount when she does leave the pharmacy. We will not be authorizing the remainder of the pills or if they do not have enough, we will send them to one other pharmacy. 3. The patient will continue on her gabapentin as she is on 900 t.i.d. We will consider decreasing this medication in the future as well and today continue her nortriptyline 75 mg at bedtime. 4. The patient is unable to take her meloxicam now due to her blood clot. She is not able to take the meloxicam. I encouraged her to take Voltaren gel, which is ipbq-ufa-lgmhzfb 2-4 times a day to her hips bilaterally to see if this is beneficial in decreasing some of her pain. 5. We will call if her right hip report comes back today. Otherwise, we will see the patient in 2 months. Time spent with the patient in consultation, reviewing pertinent imaging, reviewing recent studies and clinical notes and physician reports, physical examination and correlation of findings and medical instrumentation to determine possible treatment options, 17 minutes. Time spent in preparation for appointment, reviewing prescription monitoring system, reviewing previous records and proposed treatment options, reviewing current medications, 6 minutes. Time spent preparing and sending electronic prescriptions with collaborating physician, Dr. Hawk Otoole and documentation of visit and plan of treatment, 5 minutes. Total time spent 28 minutes. <ELECTRONICALLY SIGNED> By: Neela Hill 02/03/21 0820 [id number] 16 Neela Hill /vandana
== END | disposition home or self-care (01) ==
LOC: PAIN 07:02
PROVIDERS: ATTEND Clinical Nurse Specialist Adult Health
DX: M51.16 Intervertebral disc disorders with radiculopathy, lumbar region (principal); M47.27 Other spondylosis with radiculopathy, lumbosacral region; G89.29 Other chronic pain; I10 Essential (primary) hypertension; E11.9 Type 2 diabetes mellitus without complications; M19.90 Unspecified osteoarthritis, unspecified site; F11.20 Opioid dependence, uncomplicated; Z98.890 Other specified postprocedural states; Z79.899 Other long term (current) drug therapy

== ENCOUNTER → 2021-03-30 | Outpatient (CLI) | payer OTHER, BC ==
[~2021-03-30] VITALS: Ht 170.2 cm; Wt 89.2 kg
[2021-03-30 09:41] VITALS: BP 156/97
--- NOTE | 2021-03-30 09:50 | NUR ---
Pain Clinic Assessment: 1. History of Osteoarthritis: B/L HANDS B/L KNEES B/L FEET SPINE History of Rheumatoid Arthritis: DENIES 2. Height: 5 ft. 7 in. 170.2 cm. Weight: 196.6 lb. oz. 89.177 kg. Patient's BMI: 30.8 3. Vital Signs: BP: 156/97 Pulse: 109 Resp: 22 Temp: 02 Sat: 97 ECG Mon: 4. Pain Intensity: 7 today 5. Fall Risk: Dizziness: N Needs help standing or walking: Y Fallen in the last 3 months: N Fall risk comments: C/O FALLS ALOT, FALLS OUT OF CHAIR SOMETIMES. USING WALKER TODAY 6. Patient on Blood Thinner: None 7. History of Hypertension: Y 8. Opioid Therapy greater than 6 weeks: Y Opiate Contract Signed: 12/16/15 9. Risk Assessment Tool Provided: LOW RISK 2 10. Functional Assessment Tool: 11. Recreational Drug Use: Never Drug Type: Tobacco Use: Former Smoker Tobacco Type: Amount or Packs/day: How Many Years: Alcohol Use: No Frequency: Quant:
--- NOTE | 2021-04-01 08:05 | HPC ---
[facility] [address] [address] PAIN MANAGEMENT CONSULTATION Name: KIM JIMENEZ Room #: REG JAYLIN Isabel#: [id number] Admission: 03/30/21 Attend Phys: Neela Hill Discharge: Date of : 49 Report #: [id number] THIS REPORT FOR: cc: Aster Hyde MD,Neela Salgado MD ~ cc: Aster Hyde MD, Hawk Otoole DO DATE OF SERVICE: 03/30/2021 CHIEF COMPLAINT: Low back pain, post-laminectomy syndrome. HISTORY OF PRESENT ILLNESS: This is a 75-year-old female who returns to the pain clinic today for renewal of her opioid medications. Today, the patient describing her pain quite significantly in her low back. She states her pain score is 7/10 today. Her pain is most significantly low back radiating into her groins bilaterally. It is worse with any standing and walking. Lying down is beneficial and resting she reports, unfortunately in her new apartment, she does not have a tab in the past taking a bath was beneficial in helping relieve some of her discomfort. Today, the patient is reporting she took her last pill yesterday. This is unfortunately four days early so therefore, she has been taking more medication than prescribed. The patient reports that she is going to start physical therapy on and is interested in starting water therapy. She reports that she needs to lose some weight to try and decrease her back pain. She was doing quite well at our last visit post-surgery, but now her symptoms seem to have returned. The patient also reports that her blood sugars are quite elevated. She has brought with her today some lab work where her A1c was drawn and is 9.4. She has not seen her saturation equipment operator recently per her report. The patient also discusses that her legs are aching and burning at times, especially with any activity. ALLERGIES: No known drug allergies. CURRENT LIST OF MEDICATIONS: Gabapentin 900 mg 3 times a day, nortriptyline 75 mg at bedtime, oxycodone 10/325 up to 4 times a day, Xarelto, melatonin, insulin NovoLog as well as Lantus, Cozaar, Synthroid, Lipitor, VESIcare, sertraline, metformin, amlodipine and aspirin. PQRS: 1. She has osteoarthritic issues in her hands, feet and spine. Denies any rheumatoid arthritis. Height is 5 feet 7 inches, weight is 196, BMI is 30. 2. Vital signs 156/97, pulse is 109, respirations 22, oxygen sat is 97%. 3. Pain score 7/10. 4. Denies dizziness. Does not use a walker and has not fallen in the last [address] [address] PAIN MANAGEMENT CONSULTATION Name: KIM JIMENEZ Room #: REG CLRichard Hall#: [id number] Admission: 03/30/21 Attend Phys: Neela Hill Discharge: Date of : 49 Report #: [id number] months. 5. The patient is on a blood thinner of Xarelto as well as medications for hypertension. 6. Opioid therapy is greater than 6 weeks; therefore, an opioid signed contract is on the chart. 7. Risk assessment is low. Functional assessment is 42/70. 8. Recreational drug use, she denies. She is a former smoker and does not drink alcohol. According to the prescription monitoring system, the patient filled her prescription on 03/04. Therefore, she is not due at the earliest to fill her medications until 04/01, which would be 28 days, 30 days would be 04/03. Her morphine mEq according to the CDC guidelines is 60 MME. PHYSICAL EXAMINATION: GENERAL: This is alert and orientated, anxious 75-year-old morbidly obese female who is rating her pain score today at 7/10. She is a good historian. HEENT: Normocephalic, atraumatic. Extraocular eye muscles are intact. She is wearing a mask. MUSCULOSKELETAL: She has an antalgic gait, using a walker at all times. Tenderness in the lumbosacral region that radiates into her groins bilaterally. No edema noted in her lower extremities today, but they are reddened from her knees to her ankles in color. IMPRESSION: 1. Symptomatic lumbar radiculopathy. 2. Displacement of lumbar intervertebral disk with radiculopathy. 3. Lumbosacral spondylosis with radiculopathy. 4. Post-laminectomy syndrome. 5. Diabetes mellitus, uncontrolled. Recent A1c at 9.4. 6. Bilateral hip pain. 7. Opioid dependency. 8. Recent blood clot on Xarelto medication. 9. Complex medical management utilizing scheduled opioid medications. We reviewed the fact that opiate medications are being used to provide analgesia adequate to support activities of daily living, not attempting to achieve a specific pain score on the 0-10 Visual Analog Scale. The current opiate medications are providing sufficient analgesia to allow the patient to participate in activities of daily living. The patient is not exhibiting any aberrant behavior suggestive of drug diversion. The patient is not having any adverse reactions to medications. The patient is not suffering from daytime somnolence or mental acuity changes. The patient is managing opiate-induced constipation with appropriate ifbg-czj-cieewky agents and dietary considerations. The patient was counseled on concern for caution with operating a motor vehicle while using opiate medications. [facility] [address] [place] [address] PAIN MANAGEMENT CONSULTATION Name: KIM JIMENEZ [facility] [id number] Admission: 03/30/21 Attend Phys: Neela Hill Discharge: Date of : 49 Report #: [id number] PLAN: 1. We discussed treatment options with the patient today. I explained to the patient that she is allowed 4 tablets a day maximum. We do worry about overtaking her medication, which evidently she has done. She reports only taking 3 tablets the last week. I explained to her that is because she must have taken him 5-6 earlier in the month, we allow her 120 capsules for the month. I encouraged her to find a system that works for her, so she does not overtake her medication, offering options as pill boxes or setting them on the counter for max four a day every day. I discussed this with Dr. Hawk Otoole, and he is not willing to release these medications earlier than per her 28 days. I encouraged the patient to use heat, ice, distraction and Tylenol in the way of helping with pain management. Scripts will be sent electronically by Dr. Otoole for fill on 04/01 and 04/29. 2. The patient is to start physical therapy on Monday. I encouraged her also to look into water aerobics. She does have a salt water pool available at [place]. I encouraged her to walk and do water aerobics, that does not put so much stress on her back and legs when she is exercising. 3. I also encouraged her to call her saturation equipment operator to discuss her diabetes since it appears to be out of control. She did scan her device today and currently her blood sugars 218, but I see where her overnight it was significantly lower, but her A1c that was taken is quite high. 4. The patient will return in 2 months. At that time, we will discuss pain options. If she is not significantly better, we may have her return to Dr. Buckner who may discuss an intrathecal pump as an option for her. However, Dr. Hawk tOoole does not provide this therapy and manage those patients, so she would have to find a physician that would. Time spent with the patient in consultation, reviewing pertinent imaging, reviewing recent studies and clinical notes and physician reports, physical examination and correlation of findings and medical documentation to determine possible treatments 16 minutes. Time spent in preparation for appointment reviewing prescription monitoring system reports, reviewing previous records and proposed treatment options and reviewing current medications, 5 minutes. Time spent preparing and sending electronic prescriptions with Dr. Hawk Otoole who collaborated care today and documentation of visit and plan of treatment 5 minutes. Total time spent 26 minutes. <ELECTRONICALLY SIGNED> By: Neela Hill 04/01/21 [id number] Neela Hill /nt
== END ==
LOC: PAIN 06:55
PROVIDERS: ATTEND Clinical Nurse Specialist Adult Health
DX: M51.16 Intervertebral disc disorders with radiculopathy, lumbar region (principal); M47.26 Other spondylosis with radiculopathy, lumbar region; E11.9 Type 2 diabetes mellitus without complications; M25.551 Pain in right hip; M25.552 Pain in left hip; Z79.891 Long term (current) use of opiate analgesic; Z79.899 Other long term (current) drug therapy

== ENCOUNTER → 2021-05-25 | Outpatient (CLI) | payer OTHER, BC ==
[~2021-05-25] VITALS: Ht 170.2 cm; Wt 90.1 kg
[~2021-05-25] MED LIST changes: +BACTRIM DS TAB1 EAC1 PO
[2021-05-25 10:16] VITALS: BP 132/77
--- NOTE | 2021-05-25 10:27 | NUR ---
Pain Clinic Assessment: 1. History of Osteoarthritis: B/L HANDS B/L KNEES B/L FEET SPINE History of Rheumatoid Arthritis: DENIES 2. Height: 5 ft. 7 in. 170.2 cm. Weight: 198.6 lb. oz. 90.084 kg. Patient's BMI: 31.1 3. Vital Signs: BP: 132/77 Pulse: 87 Resp: 18 Temp: 02 Sat: 98 ECG Mon: 4. Pain Intensity: 8 TODAY 5. Fall Risk: Dizziness: N Needs help standing or walking: N Fallen in the last 3 months: N Fall risk comments: C/O FALLS ALOT, FALLS OUT OF CHAIR SOMETIMES. USING WALKER TODAY 6. Patient on Blood Thinner: XERALTO 7. History of Hypertension: Y 8. Opioid Therapy greater than 6 weeks: Y Opiate Contract Signed: 12/16/15 9. Risk Assessment Tool Provided: LOW RISK 2 10. Functional Assessment Tool: 11. Recreational Drug Use: Never Drug Type: Tobacco Use: Former Smoker Tobacco Type: Amount or Packs/day: How Many Years: Alcohol Use: No Frequency: Quant:
--- NOTE | 2021-05-25 14:13 | HPC ---
[facility] [address] [place] [address] PAIN MANAGEMENT CONSULTATION Name: KIM JIMENEZ Room #: REG JAYLIN GriffithAmosMallyAmos#: [id number] Admission: 05/25/21 Attend Phys: Hawk Otoole DO Discharge: Date of : 49 Report #: [id number] THIS REPORT FOR: cc: Aster Hyde MD,Hawk Du MD, DO ~ cc: Aster Hyde MD DATE OF SERVICE: 05/25/2021 REFERRING PHYSICIAN: Dr. Aster Hyde. CHIEF COMPLAINT: Low back pain, bilateral anterior thigh pain. HISTORY OF PRESENT ILLNESS: As you know, the patient is a 75-year-old female returning in followup visit requesting adjustments in medication management. She has been experiencing pain that begins in low back, radiates to the anterior thighs, which has been present since her surgery. She is also complaining of increasing symptoms with physical therapy. She places her current pain score at around 8/10. She states that she is having lots of falls. She is having to use a roller walker due to this ongoing pain issue. She has not gone back to her Neurosurgery team to discuss her concerns of the ongoing pain issues. She returns today requesting adjustments in medication management. She states she has to take her oxycodone consistently where she has been experiencing anxiety and shakiness, consistent with addiction issues and physiologic withdrawal. The patient has overtaken her medication again this month. She is to take only 4 tablets a day and she has taken more than 5 a day and she is now out of medications and cannot refill for another week. She returns to discuss concerns in regards to this as well. She suffered no new injury, no new trauma or any changes in medication management since her last visit. ALLERGIES: No known drug allergies. CURRENT MEDICATIONS: Gabapentin 900 mg 3 times a day, nortriptyline 75 mg p.o. at bedtime, Percocet 10/325 four times a day, Xarelto, melatonin, insulin NovoLog, sliding scale, Lantus, Cozaar, Synthroid, Lipitor, VESIcare, sertraline, metformin, amlodipine and aspirin. SOCIAL HISTORY: The patient reports herself a reformed smoker. Denies IV or illicit drug use. Denies any chronic alcohol use. She is retired, retired years ago, unaccompanied today. IMAGING: No new imaging available. PQRS: The patient has known arthritic changes of the cervical spine, bilateral shoulders, bilateral hands, bilateral knees, bilateral feet as well as lumbar spine. She denies rheumatoid arthritis. She is placing pain today at 8/10. [place] [address] PAIN MANAGEMENT CONSULTATION Name: KIM JIMENEZ MING Room #: REG CLRichard Hall#: [id number] Admission: 05/25/21 Attend Phys: Hawk Otoole DO Discharge: Date of : 49 Report #: [id number] She is a fall risk, but has not had a fall in last 3 months. She is on Xarelto. She is treated for hypertension. She is on chronic opioids and has a moderate risk of opioid addiction based on assessment tool. Pain impact is 42/70, severe interference of daily activities secondary to pain. PHYSICAL EXAMINATION: VITAL SIGNS: Blood pressure 132/77, pulse 87, respiratory rate 18 and unlabored. The patient 98% on room air. Height 5 feet 7 inches tall, weight 198.6 pounds, BMI calculated 31.1. GENERAL: Well-developed, well-nourished, well-hydrated 75-year-old female, appears in no acute distress. Awake, alert and oriented x3. Pain is rated today at 8/10. HEENT: Normocephalic, atraumatic. Pupils equal, round and responsive. She is wearing corrective eyewear. She is in a mask in response to COVID restrictions in hospital policies. EXTREMITIES: Show no clubbing, no cyanosis and no edema. MUSCULOSKELETAL: Lower extremity strength is weakened bilaterally, this appears mostly related to patient effort. Muscle bulk and tone is equal and symmetrical in upper extremities. Seated straight leg raising negative. Supine straight leg raising negative. Fabere's test is negative. Well-healed surgical scars over the lumbar spine. Gait is mildly antalgic. The patient reports perception of weakness with hip flexion, knee extension bilaterally. ASSESSMENT: 1. Lumbar radiculopathy. 2. Failed lumbar spine surgery. 3. Symptomatic lumbar radiculopathy. 4. Displacement of lumbar intervertebral disk with radiculopathy. 5. Lumbosacral spondylosis without radiculopathy. 6. Opioid dependency. 7. Complex medication management with scheduled medications. PLAN: 1. The patient returns today in followup visit indicating increasing pain levels now involving the low back and bilateral anterior thighs to just well above the knees. I am concerned about changes above the surgery site at L4-L5. The distribution of symptoms would be along the L3-L4 dermatomes bilaterally. Further evaluation of the lumbar region I believe is necessary at this time. The fact the patient has not seen improvement with physical therapy nor did she notice improvement with surgery, we would indicate that there is a possibility that there have been changes in the mid to upper lumbar area and further evaluation and possible surgical options may be necessary. We will be sending the patient for MRI of the lumbar spine for further evaluation. Once this has been completed, we will review those findings and provide that information to the primary care physician as well as to Neurosurgery if necessary. 2. The patient has been overtaking her medications again this month. She is [facility] [address] [place] [address] PAIN MANAGEMENT CONSULTATION Name: KIM JIMENEZ MING Room #: REG JAYLIN Hall#: [id number] Admission: 05/25/21 Attend Phys: Hawk Otoole DO Discharge: Date of : 49 Report #: [id number] now out of her Percocet stating that she has to take 5 tablets per day. I advised the patient we are unwilling to provide 5 oxycodone a day as she is a high dose of opioid medication and opioids are not a long-term treatment option for lumbar radicular symptoms. The fact that the patient is experiencing withdrawal effects in between the medications is quite concerning. This would indicate that she has developed a physiologic dependence on this medication and I am concerned that part of her symptoms may be related to this withdrawal-like of fact. I have advised the patient that no escalation of Percocet will be provided today. She must remain at 4 tablets a day. She cannot overtake her medication and there cannot be early refills of the medication. She needs to understand the prescription and how it is to be utilized. The fact that she overtakes her medication is quite concerning. I have voiced my concern to the patient today and advised her that we will be providing only 4 tablets a day and this is the maximum dose we are willing to provide. We reviewed the fact that opiate medications are being used to provide analgesia adequate to support activities of daily living, not attempting to achieve a specific pain score on the 0-10 Visual Analog Scale. The current opiate medications are providing sufficient analgesia to allow the patient to participate in activities of daily living. The patient is not exhibiting any aberrant behavior suggestive of drug diversion. The patient is not having any adverse reactions to medications. The patient is not suffering from daytime somnolence or mental acuity changes. The patient is managing opiate-induced constipation with appropriate buhw-hnh-wapjhei agents and dietary considerations. The patient was counseled on concern for caution with operating a motor vehicle while using opiate medications. A physical exam was performed and the patient's functional status was evaluated. All patients with back pain were advised against the bed rest greater than 4 days and were advised to return to normal activities. Pain score assessment was noted and the treatment plan was reviewed with the patient. All current medications, both prescribed and OTC were reviewed and reconciled on the electronic medical record. Tobacco screening was accomplished and smoking cessation was advised when indicated. BMI was noted and diet/exercise modification was recommended for all patients following outside normal parameters. I reviewed with the patient today their responsibilities to safeguard prescription medications, reviewed their responsibility to utilize medications only as prescribed by the physician. They are to seek and receive pain medications only from 1 physician group ( [facility]). They are to use 1 pharmacy and keep the clinic informed if they change pharmacies. Their responsibilities include making followup visits in a timely fashion and to avoid abrupt discontinuation of medication usage. Their responsibilities further include bringing their medications (bottles from the pharmacy with residual pills) to the visit for possible confirmation of pill counts and the patient [facility] [address] [place] [address] PAIN MANAGEMENT CONSULTATION Name: KIM JIMENEZ Room #: REG JAYLIN Hall#: [id number] Admission: 05/25/21 Attend Phys: Hawk Otoole DO Discharge: Date of : 49 Report #: [id number] understands it is their responsibility to submit to random drug screens to ensure both that the medications prescribed are present, and that no other controlled substances are present. All prescriptions provided today were generated electronically. 3. The patient was provided prescription of oxycodone 10/325 one tab p.o. q.6 hours p.r.n. pain, given the patient #120 to release today, 4 weeks from today, 8 weeks from today, 3 months' worth of medication. All prescriptions sent via e-scribe to local pharmacy. 4. Plan to see the patient back in followup visit once the MRI is completed, we will review those findings and discuss the interventional treatment options we can offer and any surgical recommendations we might have. <ELECTRONICALLY SIGNED> By: Hawk Otoole DO 05/25/21 1413 1110 1308 Hawk Otoole DO /nt
== END ==
LOC: PAIN 09:49
PROVIDERS: ATTEND Anesthesiology Pain Medicine
DX: M51.16 Intervertebral disc disorders with radiculopathy, lumbar region (principal); M47.27 Other spondylosis with radiculopathy, lumbosacral region; M79.651 Pain in right thigh; M79.652 Pain in left thigh; M96.1 Postlaminectomy syndrome, not elsewhere classified; F11.20 Opioid dependence, uncomplicated; Z79.899 Other long term (current) drug therapy; Z79.84 Long term (current) use of oral hypoglycemic drugs

== ENCOUNTER → 2021-06-01 | Outpatient (CLI) | payer OTHER, BC | LOC: MRI 14:21 | PROVIDERS: ATTEND Anesthesiology Pain Medicine | DX: M43.16 Spondylolisthesis, lumbar region (principal); M51.16 Intervertebral disc disorders with radiculopathy, lumbar region; M25.78 Osteophyte, vertebrae; M89.38 Hypertrophy of bone, other site ==

== ENCOUNTER → 2021-07-14 | Outpatient (CLI) | payer OTHER, BC ==
[~2021-07-14] VITALS: Ht 170.2 cm; Wt 86.3 kg
[~2021-07-14] MED LIST changes: +LYRICA100 MG PO; +TRIAMCINOLONE A80 G2 TOP
[2021-07-14 12:56] VITALS: BP 126/67
--- NOTE | 2021-07-14 13:13 | NUR ---
Pain Clinic Assessment: 1. History of Osteoarthritis: B/L HANDS B/L KNEES B/L FEET SPINE History of Rheumatoid Arthritis: DENIES 2. Height: 5 ft. 7 in. 170.2 cm. Weight: 190.2 lb. oz. 86.274 kg. Patient's BMI: 29.8 3. Vital Signs: BP: 126/67 Pulse: 111 Resp: 16 Temp: 02 Sat: 96 ECG Mon: 4. Pain Intensity: 3 5. Fall Risk: Dizziness: N Needs help standing or walking: Y Fallen in the last 3 months: N Fall risk comments: C/O FALLS ALOT, FALLS OUT OF CHAIR SOMETIMES. USING WALKER TODAY 6. Patient on Blood Thinner: None 7. History of Hypertension: Y 8. Opioid Therapy greater than 6 weeks: Y Opiate Contract Signed: 12/16/15 9. Risk Assessment Tool Provided: LOW RISK 2 10. Functional Assessment Tool: 11. Recreational Drug Use: Never Drug Type: Tobacco Use: Current Every Day Smoker Tobacco Type: Cigarettes Amount or Packs/day: 1 How Many Years: Alcohol Use: No Frequency: Quant:
== END ==
LOC: PAIN 09:50
PROVIDERS: ATTEND Clinical Nurse Specialist Adult Health
DX: M53.3 Sacrococcygeal disorders, not elsewhere classified (principal); M47.27 Other spondylosis with radiculopathy, lumbosacral region; M96.1 Postlaminectomy syndrome, not elsewhere classified; M79.18 Myalgia, other site; F11.20 Opioid dependence, uncomplicated; F17.200 Nicotine dependence, unspecified, uncomplicated; Z79.4 Long term (current) use of insulin; Z91.048 Other nonmedicinal substance allergy status

== ENCOUNTER → 2021-07-21 | Outpatient (CLI) | payer OTHER, BC ==
[~2021-07-21] MED LIST changes: -COZAAR 50 MG TA50 M1; +COZAAR 50 MG TA50 M1 PO; +GLUMETZA500 PO; +LIPITOR 40 MG T40 M1 PO
== END ==
LOC: LAB 09:31
PROVIDERS: ATTEND Student in an Organized Health Care Education/Training Program
DX: Z01.812 Encounter for preprocedural laboratory examination (principal); Z20.822 Contact with and (suspected) exposure to COVID-19

== ENCOUNTER → 2021-07-23 | Outpatient (CLI) | payer OTHER, BC ==
[~2021-07-23] VITALS: Ht 170.2 cm; Wt 86.2 kg
--- NOTE | 2021-07-27 10:08 | PATH ---
[facility] [address] [place] [address] PATHOLOGY RPT PROCEDURE Name: SELENE CARR MING Room #: REG JAYLIN Hall#: [id number] Admission: 07/23/21 Date of : 49 Discharge: Report #: [id number] Path Case #: [id number] [facility] Accession Number: [id number] . 01 Material submitted: . PART A: sigmoid colon - SIGMOID COLON POLYP PART B: rectum - RECTAL POLYP . 01 Clinical history: . COLONOSCOPY RECTAL BLEEDING COLON POLYP, INTERNAL HEMORRHOIDS . 01 Diagnosis: A. Colonic mucosa "sigmoid colon polyp biopsy": - Hyperplastic polyp. - There is no evidence of adenomatous change, high-grade dysplasia or malignancy. . B. Colonic mucosa "rectal polyp biopsy": - Hyperplastic polyp. - There is no evidence of adenomatous change, high-grade dysplasia or malignancy. (SHA:danica; 07/26/2021) S 07/26/2021 1156 Local . 01 Electronically signed: . Chin Garcia MD, Pathologist NPI- [id number] . 01 Gross description: . A. The specimen is received in formalin, labeled "Selene Carr, sigmoid colon polyp". Received is a single segment of pale webber tissue measuring 0.3 cm in maximum dimensions. The specimen is entirely submitted in cassette A1. . B. The specimen is received in formalin, labeled "Selene Carr, rectal polyp". Received are 2 segments of pale webber tissue both measuring 0.3 cm in maximum dimension. The specimen is entirely submitted in cassette B1. ([facility]; 07/23/2021) NRI/NRI 07/23/2021 1809 Local . 01 Pathologist provided ICD-10: K63.5, K62.1 . 01 CPT . 342121, [id number] [address] [address] PATHOLOGY RPT PROCEDURE Name: SELENE CARR Room #: REG CLI [facility].#: [id number] Admission: 07/23/21 Date of : 49 Discharge: Report #: [id number] Path Case #: [id number] Specimen Comment: A courtesy copy of this report has been sent to [phone], [phone] Specimen Comment: [id number] Specimen Comment: Report sent to / DR SCHAEFER Specimen Comment: A duplicate report has been generated due to demographic updates. Performed at: 01 [facility] [address], [place], [place] [id number] MD Chin Garcia MD Phone: [phone]
--- NOTE | 2021-07-28 10:45 | P ---
[facility] [place] [address] PROCEDURE REPORT Name: KIM JIMENEZ Room #: REG FABRICERichard Hall#: [id number] Admission: 07/23/21 Attend Phys: Daniel Schaefer Discharge: Date of : 49 Report #: [id number] THIS REPORT FOR: cc: Nichole Woodward MD,Daniel Murry MD, MD ~ cc: Nichole Woodward MD DATE OF SERVICE: 07/23/2021 PROCEDURE PERFORMED: Flexible sigmoidoscopy with biopsies. HISTORY OF PRESENT ILLNESS: The patient is a 75-year-old female with a history of colon polyps, last colonoscopy was performed. Last flexible sigmoidoscopy was performed by myself in 2018 showing hyperplastic polyp at that time. She reportedly has had a Hemoccult positive stool recently. She denies any obvious blood in her stools. She has had a subtotal colectomy for history of recurrent diverticulitis as well as a large polyp in her transverse colon. She has primarily sigmoid colon and rectum remaining. DESCRIPTION OF PROCEDURE: The risks and benefits of the procedure were explained to the patient, those risks including but not limited to bleeding, perforation and the risk of sedation. She understood these risks and gave informed consent. Sedation was given using propofol per anesthesia. Next, a digital rectal exam was initially performed, which was normal. Next, using a standard Olympus colonoscope, the scope was placed in the patient's anus and advanced under direct vision into the sigmoid colon. At which point, the surgical anastomosis was again noted. This was well healed and widely patent. I was able to advance the scope into the ileum, which was normal. The scope was then slowly withdrawn. In the sigmoid colon, a 4 mm sessile polyp was noted. This was removed with cold forceps, otherwise normal. In the rectum, a 3 mm sessile polyp was noted, also removed with cold forceps. On retroflexion, small nonbleeding internal hemorrhoids were noted. The scope was then withdrawn and the procedure terminated. The patient tolerated the procedure well. IMPRESSION: 1. Surgical changes again noted consistent with subtotal colectomy. 2. Two small colonic polyps. 3. Small internal hemorrhoids, nonbleeding. 4. Otherwise, normal flexible sigmoidoscopy. RECOMMENDATIONS: 1. Await biopsy results. 2. Repeat flexible sigmoidoscopy in 5 years. 3. Suspect recent Hemoccult positive stool due to hemorrhoids. Would observe at this time. If the patient is anemic, could consider upper endoscopy in the [address] [address] PROCEDURE REPORT Name: IKM JIMENEZ [id number] Admission: 07/23/21 Attend Phys: Daniel Schaefer Discharge: Date of : 49 Report #: [id number] future. Thank you for allowing me to participate in her care. <ELECTRONICALLY SIGNED> By: Daniel Goodman MD 07/28/21 1045 1017 2215 Daniel Goodman MD /nt
== END | disposition home or self-care (01) ==
LOC: GI 09:40
PROVIDERS: ATTEND Specialist
DX: R19.5 Other fecal abnormalities (principal); K63.5 Polyp of colon; K62.1 Rectal polyp; K64.8 Other hemorrhoids; I10 Essential (primary) hypertension; E11.9 Type 2 diabetes mellitus without complications; E78.5 Hyperlipidemia, unspecified; F32.9 Major depressive disorder, single episode, unspecified; F41.9 Anxiety disorder, unspecified; F17.210 Nicotine dependence, cigarettes, uncomplicated; Z98.890 Other specified postprocedural states; Z79.899 Other long term (current) drug therapy; Z79.4 Long term (current) use of insulin; Z87.19 Personal history of other diseases of the digestive system; Z90.49 Acquired absence of other specified parts of digestive tract; Z96.653 Presence of artificial knee joint, bilateral; Z90.710 Acquired absence of both cervix and uterus
CPT/HCPCS: 62110; 62900